=== PATIENT | female | born 1935 | race Caucasian/White ===

== ENCOUNTER → 2016-07-01 | Outpatient (REF) | payer OTHER, MEDICAID ==
[~2016-07-01] MED LIST: /HCTZ25TA PO; /PRAV20TA PO; /RANI15TA PO; ACET50TA PO; ACTIGALL PO; ASPI81TA85 PO; CALCTAB68 PO; CETI10TA OR; DIAZIDE PO; DYAZCA OR; FISH1000 OR; LIDO1DIS2 TOP; MAAL600C PO; MICR10CA OR; MULTTAB4 PO; NAPR500T PO; NEUR600T OR; NORCOBULK OR; PROAAER INH; PROC60TA PO; SING5CHW PO; TUMS1000 PO; ULTR50TA PO; VITA500047 PO; VITACRE OR
[2016-07-01 19:31] LABS: ALBUMIN 3.5 GM/DL (3.2-5.2); ALBUMIN/GLOBULIN RATIO 1.09 (1.00-1.93); ALKALINE PHOSPHATASE 137 U/L (45-117); ALT/SGPT 24 U/L (12-78); ANION GAP 10 MEQ/L (8-16); AST/SGOT 20 U/L (15-37); BILIRUBIN,TOTAL 0.4 MG/DL (0.2-1.0); BLOOD UREA NITROGEN 23 MG/DL (7-18); CALCIUM LEVEL 9.6 MG/DL (8.8-10.2); CARBON DIOXIDE LEVEL 29 MEQ/L (21-32); CHLORIDE LEVEL 102 MEQ/L (98-107); CREATININE FOR GFR 0.95 MG/DL (0.55-1.02); GLOMERULAR FILTRATION RATE > 60.0 (>32); GLUCOSE, FASTING 85 MG/DL (83-110); POTASSIUM SERUM 3.8 MEQ/L (3.5-5.1); SODIUM LEVEL 141 MEQ/L (136-145); TOTAL PROTEIN 6.7 GM/DL (6.4-8.2)
== END ==
LOC: M SFHCCLAY 12:03
PROVIDERS: ATTEND Family Medicine
DX: M10.9 Gout, unspecified (principal); E11.9 Type 2 diabetes mellitus without complications
CPT/HCPCS: 80053; 83036; G0463

== ENCOUNTER → 2016-08-13 | Outpatient (REF) | payer OTHER, MEDICAID | LOC: M SFHCCLAY 11:10 | PROVIDERS: ATTEND Family Medicine | DX: A09 Infectious gastroenteritis and colitis, unspecified (principal) ==

== ENCOUNTER → 2016-12-23 | Outpatient (REF) | payer OTHER, MEDICAID ==
[~2016-12-23] MED LIST changes: +DICL1GEL3; +FURO40TA2; +GLIM1TAB; +LOSA50TA20; +NAPR500T3; +PRAV40TA2
[2016-12-23 16:46] LABS: ANION GAP 5 MEQ/L (8-16); BLOOD UREA NITROGEN 16 MG/DL (7-18); CARBON DIOXIDE LEVEL 31 MEQ/L (21-32); CHLORIDE LEVEL 102 MEQ/L (98-107); CREATININE FOR GFR 0.91 MG/DL (0.55-1.02); GLOMERULAR FILTRATION RATE > 60.0 (>32); GLUCOSE, FASTING 107 MG/DL (83-110); POTASSIUM SERUM 3.7 MEQ/L (3.5-5.1); SODIUM LEVEL 138 MEQ/L (136-145)
[2016-12-23 17:40] LABS: MEAN CORPUSCULAR HEMOGLOBIN 30.5 pg (27.0-33.0); MEAN CORPUSCULAR HGB CONC 33.7 g/dl (32.0-36.5); MEAN CORPUSCULAR VOLUME 90.5 fl (80.0-96.0); RED CELL DISTRIBUTION WIDTH 12.4 % (11.5-14.5); WHITE BLOOD COUNT 7.3 K/mm3 (4.0-10.0)
== END ==
LOC: M SFHCCLAY 16:21
PROVIDERS: ATTEND Family Medicine
DX: E11.40 Type 2 diabetes mellitus with diabetic neuropathy, unspecified (principal); M15.9 Polyosteoarthritis, unspecified
CPT/HCPCS: 36415; 80048; 83036; 85027; G0463

== ENCOUNTER → 2017-01-11 | Outpatient (REF) | payer OTHER, MEDICAID | LOC: M SFHCCLAY 01-08 16:13 | PROVIDERS: ATTEND Family Medicine | DX: A09 Infectious gastroenteritis and colitis, unspecified (principal) ==

== ENCOUNTER 2017-02-10 10:36 | Emergency (ER) | payer OTHER, MEDICAID ==
[~2017-02-10] VITALS: Ht 154.9 cm; Wt 91.8 kg
[~2017-02-10 10:36] MED LIST changes: -DICL1GEL3; -FURO40TA2; -GLIM1TAB; -LOSA50TA20; -NAPR500T3; -PRAV40TA2
[2017-02-10] MEDS ORDERED: GLIM1TAB (10:56)
[2017-02-10] MEDS ORDERED: FURO40TA2 (11:05)
[2017-02-10] MEDS ORDERED: PRAV40TA2 (11:05)
[2017-02-10] MEDS ORDERED: NAPR500T3 (11:05)
[2017-02-10] MEDS ORDERED: LOSA50TA20 (11:05)
[2017-02-10] MEDS ORDERED: DICL1GEL3 (11:05)
[2017-02-10 11:35] LABS: BASO % 0.5 % (0.0-1.0); EOS # 0.1 K/mm3 (0.0-0.50); EOS % 1.9 % (0.0-3.0); LARGE UNSTAINED CELL # 0.2 K/mm3 (0.0-0.4); LYMPH % 13.8 % (24.0-44.0); MEAN CORPUSCULAR HEMOGLOBIN 31.3 pg (27.0-33.0); MEAN CORPUSCULAR HGB CONC 34.7 g/dl (32.0-36.5); MEAN CORPUSCULAR VOLUME 90.4 fl (80.0-96.0); MONO # 0.5 K/mm3 (0.0-0.8); MONO % 6.3 % (0.0-5.0); NEUTROPHILS # 5.6 K/mm3 (1.8-7.7); NEUTROPHILS % 75.5 % (36.0-66.0); PLATELET COUNT, AUTOMATED 258 k/mm3 (150-450); RED CELL DISTRIBUTION WIDTH 13.2 % (11.5-14.5); WHITE BLOOD COUNT 7.4 K/mm3 (4.0-10.0)
[2017-02-10 11:54] LABS: ALBUMIN 3.3 GM/DL (3.2-5.2); ALBUMIN/GLOBULIN RATIO 0.97 (1.00-1.93); ALKALINE PHOSPHATASE 87 U/L (45-117); ALT/SGPT 25 U/L (12-78); ANION GAP 8 MEQ/L (8-16); AST/SGOT 19 U/L (15-37); BILIRUBIN,DIRECT 0.1 MG/DL (0.0-0.2); BILIRUBIN,TOTAL 0.5 MG/DL (0.2-1.0); BLOOD UREA NITROGEN 20 MG/DL (7-18); CALCIUM LEVEL 9.7 MG/DL (8.8-10.2); CARBON DIOXIDE LEVEL 30 MEQ/L (21-32); CHLORIDE LEVEL 105 MEQ/L (98-107); CREATININE FOR GFR 0.97 MG/DL (0.55-1.02); GLOMERULAR FILTRATION RATE 58.5 (>32); GLUCOSE, FASTING 151 MG/DL (83-110); POTASSIUM SERUM 3.8 MEQ/L (3.5-5.1); SODIUM LEVEL 143 MEQ/L (136-145); TOTAL PROTEIN 6.7 GM/DL (6.4-8.2)
--- NOTE | 2017-02-10 12:08 | REP ---
CT Head without contrast HISTORY: Altered mental status COMPARISON: 11/05/2012 Areas of decreased attenuation are present in the basal ganglia. These represent old lacunar infarctions. Areas of decreased attenuation are present in the periventricular and subcortical white matter. This represents small-vessel ischemic disease. There is no intraparenchymal hemorrhage, acute infarct, mass or midline shift. The ventricular system and cortical sulci are dilated consistent with minimal volume loss. There is no extra cerebral collection. There is no fracture. The visualized sinuses are clear. IMPRESSION: 1. Old bilateral basal ganglia lacunar infarctions. 2. Small vessel ischemic disease. 3. Minimal volume loss. Signed by Juan Bishop MD 02/10/2017 12:00 P
[2017-02-10] MEDS ORDERED: ISOVUE-370 76% 100ML VIAL (Q9967) As Ordered ONE (13:05)
--- NOTE | 2017-02-10 13:29 | REP ---
Clinical: Pain and edema . Technique: Linda scale and color Doppler evaluation using linear high frequency transducer. Findings: Ultrasound examination of the right and left lower extremity deep venous structures from the common femoral vein to the popliteal vein demonstrates normal compressibility flow and wave patterns in response to respiration and augmentation. There is no evidence for deep venous thrombosis. Impression: No evidence for deep venous thrombosis. Signed by Davin Gentile MD 02/10/2017 01:22 P
--- NOTE | 2017-02-10 13:53 | REP ---
Clinical: Acute chest pain. Technique: Axial contrast enhanced images from the thoracic inlet to the upper abdomen using 100 ml Isovue 370 intravenous contrast material with coronal and sagittal re-formations. Findings: Satisfactory enhancement of the pulmonary vasculature is achieved and no filling defects are identified to suggest pulmonary embolus. Thoracic aorta is normal caliber without aneurysm or dissection, and demonstrates aberrant right subclavian artery. Atherosclerotic changes of the thoracic aorta and coronary arteries noted. No cardiomegaly or pericardial effusion identified. Bilateral lung hagan demonstrates scattered age-related interstitial changes without acute pulmonary parenchymal consolidation. Trace left basilar atelectasis cannot be excluded. No obvious nodule or mass lesion. No pleural effusion/reaction. No pneumothorax. No adenopathy. Moderate hiatal hernia identified. Impression: No evidence for pulmonary embolus. Chronic changes with possible trace left basilar atelectasis. Aberrant right subclavian artery noted. Moderate hiatal hernia. Signed by Davin Gentile MD 02/10/2017 01:45 P
[2017-02-10 17:57] VITALS: BP 137/89
--- NOTE | 2017-02-10 21:21 | ECGEPIP ---
Stationary ECG Study [facility] - ED Test Date: 2017-02-10 Pat Name: MIYA BLANTON Department: Room: - Gender: F [employer]: JT : 1935 Requested By: Julia Shah Order Number: [id number] Reading MD: Julia Shah Measurements Intervals [place] Rate: 78 P: 6 WI: 172 QRS: -36 QRSD: 91 T: 10 QT: 371 QTc: 424 Interpretive Statements SINUS RHYTHM MARKED LEFT AXIS DEVIATION POSSIBLE ANTERIOR MYOCARDIAL INFARCTION, OF INDETERMINATE AGE Electronically Signed On 02-10-2017 21:20:55 EDT by Julia Shah
--- NOTE | 2017-02-10 21:27 | ECGEPIP ---
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
== END 2017-02-10 17:58 | disposition home or self-care (01) ==
LOC: M ED 10:36 → EDBD 10:36 → M ED 17:58
DX: R07.9 Chest pain, unspecified (principal); R06.02 Shortness of breath; R42 Dizziness and giddiness; R60.0 Localized edema; I10 Essential (primary) hypertension; E78.9 Disorder of lipoprotein metabolism, unspecified; M19.90 Unspecified osteoarthritis, unspecified site; J30.2 Other seasonal allergic rhinitis; Z87.891 Personal history of nicotine dependence; Z88.0 Allergy status to penicillin; Z88.1 Allergy status to other antibiotic agents; Z88.8 Allergy status to other drugs, medicaments and biological substances; Z79.899 Other long term (current) drug therapy; Z79.82 Long term (current) use of aspirin
CPT/HCPCS: 70450; 71275; 80048; 80076; 82550; 82553; 83880; 84443; 84484; 85025; 93005; 93041; 93970; 94760; 99285; Q9967

== ENCOUNTER → 2017-07-08 | Outpatient (REF) | payer OTHER ==
[2017-07-08 18:26] LABS: ANION GAP 7 MEQ/L (8-16); BLOOD UREA NITROGEN 22 MG/DL (7-18); CALCIUM LEVEL 9.8 MG/DL (8.8-10.2); CARBON DIOXIDE LEVEL 29 MEQ/L (21-32); CHLORIDE LEVEL 102 MEQ/L (98-107); CREATININE FOR GFR 1.16 MG/DL (0.55-1.30); GLOMERULAR FILTRATION RATE 47.6 (>32); GLUCOSE, FASTING 176 MG/DL (70-100); POTASSIUM SERUM 4.4 MEQ/L (3.5-5.1); SODIUM LEVEL 138 MEQ/L (136-145)
[2017-07-08 18:31] LABS: ESTIMATED AVERAGE GLUCOSE 134 MG/DL (60-110); HEMOGLOBIN A1c 6.3 %
== END ==
LOC: M SFHCCLAY 16:41
DX: E11.40 Type 2 diabetes mellitus with diabetic neuropathy, unspecified (principal)
CPT/HCPCS: 83036

== ENCOUNTER 2017-09-26 11:54 | Emergency (ER) | payer OTHER, MEDICAID ==
[2017-09-26] MEDS: NORCO, ANEXSIA 5/325MG TABLET (HYDROcodone/ACETAMINOPHEN) PO (13:29)
[2017-09-26 13:43] LABS: BEDSIDE GLUCOSE 128 MG/DL (83-110)
[2017-09-26] MEDS: NORCO 5/325MG TABLET (BULK FOR ED) PO (15:15)
== END 2017-09-26 15:33 | disposition home or self-care (01) ==
LOC: M ED 11:54
DX: S82.024A Nondisplaced longitudinal fracture of right patella, initial encounter for closed fracture (principal); W01.0XXA Fall on same level from slipping, tripping and stumbling without subsequent striking against object, initial encounter; Y92.89 Other specified places as the place of occurrence of the external cause; E11.9 Type 2 diabetes mellitus without complications; I10 Essential (primary) hypertension; E78.00 Pure hypercholesterolemia, unspecified; Z79.899 Other long term (current) drug therapy; Z79.82 Long term (current) use of aspirin; Z88.8 Allergy status to other drugs, medicaments and biological substances; Z88.0 Allergy status to penicillin; Z88.1 Allergy status to other antibiotic agents; Z87.828 Personal history of other (healed) physical injury and trauma
CPT/HCPCS: 73564

== ENCOUNTER → 2017-10-23 | Outpatient (REF) | payer OTHER, MEDICAID | LOC: M SFHCCLAY 14:54 | DX: E11.9 Type 2 diabetes mellitus without complications (principal); J45.30 Mild persistent asthma, uncomplicated; Z53.8 Procedure and treatment not carried out for other reasons ==

== ENCOUNTER → 2018-02-12 | Outpatient (CLI) | payer OTHER, MEDICAID, MEDICARE | LOC: M CLY 11:41 | DX: R06.00 Dyspnea, unspecified (principal) | CPT/HCPCS: 71046 ==

== ENCOUNTER → 2018-02-15 | Outpatient (CLI) | payer MEDICARE, MEDICAID | LOC: M WHC 11:04 | DX: N95.1 Menopausal and female climacteric states (principal); Z78.0 Asymptomatic menopausal state | CPT/HCPCS: 77080 ==

== ENCOUNTER → 2018-02-22 | Outpatient (REF) | payer MEDICARE, MEDICAID | LOC: M SFHCCLAY 11:10 | DX: R19.7 Diarrhea, unspecified (principal) ==

== ENCOUNTER 2018-02-23 08:06 | Inpatient (IN) | payer MEDICARE, MEDICAID ==
[2018-02-23 09:08] LABS: HEMATOCRIT 37.6 % (36.0-47.0); HEMOGLOBIN 12.9 g/dl (12.0-15.5); MEAN CORPUSCULAR HEMOGLOBIN 30.4 pg (27.0-33.0); MEAN CORPUSCULAR HGB CONC 34.3 g/dl (32.0-36.5); MEAN CORPUSCULAR VOLUME 88.5 fl (80.0-96.0); PLATELET COUNT, AUTOMATED 319 10^3/uL (150-450); RED BLOOD COUNT 4.25 10^6/uL (4.00-5.40); RED CELL DISTRIBUTION WIDTH 12.2 % (11.5-14.5); WHITE BLOOD COUNT 12.6 10^3/uL (4.0-10.0)
[2018-02-23 09:12] LABS: ADD MANUAL DIFFER YES; DIFF SLIDE NUMBER 161; POSITIVE MORPH POS FLAG
[2018-02-23 09:33] LABS: ANION GAP 10 MEQ/L (8-16); BLOOD UREA NITROGEN 17 MG/DL (7-18); CALCIUM LEVEL 9.3 MG/DL (8.8-10.2); CARBON DIOXIDE LEVEL 22 MEQ/L (21-32); CHLORIDE LEVEL 102 MEQ/L (98-107); CPK CREATINE PHOSPHOKINASE 654 U/L (26-192); CREATININE FOR GFR 1.08 MG/DL (0.55-1.30); GLOMERULAR FILTRATION RATE 51.6 (>32); GLUCOSE, FASTING 152 MG/DL (70-100); SODIUM LEVEL 134 MEQ/L (136-145)
[2018-02-23 09:48] LABS: ATYPICAL LYMPH 1 % (0-5); BANDS 4 % (< 11); BASOPHILS 1 % (0-4); LYMPHOCYTES 11 % (16-52); MONOCYTES 11 % (0-8); NEUTROPHILS 72 % (35-75); PLATELET ESTIMATE NORMAL (NORMAL)
[2018-02-23] MEDS ORDERED: glipiZIDE *2.5MG* 1/2 TABLET PO (10:00)
[2018-02-23] MEDS: ASPIRIN 325 MG TAB PO (10:00)
[2018-02-23] MEDS: NS 500 ML IV (10:00)
[2018-02-23] MEDS ORDERED: ASPIRIN 81 MG CHEW TABLET As Ordered (10:01)
[2018-02-23] MEDS: FUROSEMIDE 40 MG TAB PO (10:04)
[2018-02-23] MEDS: glipiZIDE (GLUCOTROL) 5 MG TAB PO (10:12)
[2018-02-23] MEDS: NS 1,000 ML IV ×2 (10:45→22:12)
[2018-02-23] MEDS: ADVAIR INH (12:24)
[2018-02-23 12:31] LABS: BEDSIDE GLUCOSE 130 MG/DL (83-110)
[2018-02-23 17:02] LABS: ANION GAP 4 MEQ/L (8-16); BLOOD UREA NITROGEN 18 MG/DL (7-18); CALCIUM LEVEL 8.8 MG/DL (8.8-10.2); CARBON DIOXIDE LEVEL 25 MEQ/L (21-32); CHLORIDE LEVEL 101 MEQ/L (98-107); CREATININE FOR GFR 1.08 MG/DL (0.55-1.30); GLOMERULAR FILTRATION RATE 51.6 (>32); GLUCOSE, FASTING 127 MG/DL (70-100); POTASSIUM SERUM 4.2 MEQ/L (3.5-5.1); SODIUM LEVEL 130 MEQ/L (136-145)
[2018-02-23 17:03] LABS: CPK CREATINE PHOSPHOKINASE 851 U/L (26-192)
[2018-02-23] MEDS ORDERED: BENZONATATE 100 MG CAP PO (19:45)
[2018-02-23] MEDS ORDERED: ONDANSETRON 4MG/2ML VIAL (J2405) IV (19:45)
[2018-02-23] MEDS: PRAVASTATIN 20 MG TAB PO (22:11)
[2018-02-23] MEDS: LORATADINE 10 MG TAB PO (22:12)
[2018-02-23] MEDS: MONTELUKAST 10 MG TAB PO (22:12)
[2018-02-23] MEDS: raNITIdine SYRUP 150 MG/10 ML UDC PO (22:12)
[2018-02-23] MEDS: ADVAIR HFA 45/21MCG INHALER INH (22:15)
[2018-02-23] MEDS: ALPRAZolam 0.5 MG TAB PO (22:19)
[2018-02-24 06:30] LABS: MEAN CORPUSCULAR HEMOGLOBIN 30.2 pg (27.0-33.0); MEAN CORPUSCULAR HGB CONC 34.2 g/dl (32.0-36.5); MEAN CORPUSCULAR VOLUME 88.2 fl (80.0-96.0); PLATELET COUNT, AUTOMATED 257 10^3/uL (150-450); RED BLOOD COUNT 4.31 10^6/uL (4.00-5.40); RED CELL DISTRIBUTION WIDTH 12.3 % (11.5-14.5); WHITE BLOOD COUNT 5.5 10^3/uL (4.0-10.0)
[2018-02-24 06:32] LABS: ADD MANUAL DIFFER YES; DIFF SLIDE NUMBER 87; POSITIVE MORPH POS FLAG
[2018-02-24 07:06] LABS: ANION GAP 11 MEQ/L (8-16); BLOOD UREA NITROGEN 17 MG/DL (7-18); CALCIUM LEVEL 8.7 MG/DL (8.8-10.2); CARBON DIOXIDE LEVEL 21 MEQ/L (21-32); CHLORIDE LEVEL 106 MEQ/L (98-107); CPK CREATINE PHOSPHOKINASE 520 U/L (26-192); CREATININE FOR GFR 0.83 MG/DL (0.55-1.30); GLOMERULAR FILTRATION RATE > 60.0 (>32); GLUCOSE, FASTING 106 MG/DL (70-100); MAGNESIUM LEVEL 1.9 MG/DL (1.8-2.4); POTASSIUM SERUM 3.9 MEQ/L (3.5-5.1); SODIUM LEVEL 138 MEQ/L (136-145)
[2018-02-24 08:15] LABS: EOSINOPHILS 3 % (0-5); LYMPHOCYTES 41 % (16-52); MONOCYTES 1 % (0-8); NEUTROPHILS 55 % (35-75); PLATELET ESTIMATE NORMAL (NORMAL)
[2018-02-24] MEDS: ADVAIR HFA 45/21MCG INHALER INH ×2 (08:47→21:12)
[2018-02-24] MEDS: MULTIVITAMINS/MINERALS THERAP 1 TAB PO (10:53)
[2018-02-24] MEDS: ASPIRIN 81 MG ENTERIC TAB PO (10:53)
[2018-02-24] MEDS: ALPRAZolam 0.5 MG TAB PO ×2 (10:53→20:54)
[2018-02-24] MEDS: ENOXAPARIN 40 MG/0.4 ML SYRINGE (J1650) SC (10:54)
[2018-02-24] MEDS: raNITIdine SYRUP 150 MG/10 ML UDC PO ×2 (10:54→21:08)
[2018-02-24] MEDS: INFLUENZA VIRUS VACCINE HIGH DOSE 0.5 ML SYRINGE (90662) IM (10:55)
[2018-02-24] MEDS ORDERED: glipiZIDE (GLUCOTROL) 5 MG TAB PO (14:15)
[2018-02-24 16:43] LABS: BEDSIDE GLUCOSE 141 MG/DL (83-110)
[2018-02-24] MEDS: ACETAMINOPHEN TAB 650MG DOSE (2X325MG) PO (18:25)
[2018-02-24] MEDS: GABAPENTIN 300 MG CAP PO (20:54)
[2018-02-24] MEDS: LORATADINE 10 MG TAB PO (20:54)
[2018-02-24] MEDS: MONTELUKAST 10 MG TAB PO (20:54)
[2018-02-24] MEDS: PRAVASTATIN 20 MG TAB PO (20:54)
[2018-02-24] MEDS: CHOLESTYRAMINE 4 GM PWD PKT PO (20:55)
[2018-02-24] MEDS ORDERED: FUROSEMIDE 40 MG TAB PO (21:00)
[2018-02-25 05:07] LABS: BEDSIDE GLUCOSE 106 MG/DL (83-110)
[2018-02-25 05:55] LABS: HEMATOCRIT 44.4 % (36.0-47.0); HEMOGLOBIN 14.8 g/dl (12.0-15.5); MEAN CORPUSCULAR HEMOGLOBIN 29.9 pg (27.0-33.0); MEAN CORPUSCULAR HGB CONC 33.3 g/dl (32.0-36.5); MEAN CORPUSCULAR VOLUME 89.7 fl (80.0-96.0); RED BLOOD COUNT 4.95 10^6/uL (4.00-5.40); RED CELL DISTRIBUTION WIDTH 12.3 % (11.5-14.5); WHITE BLOOD COUNT 7.4 10^3/uL (4.0-10.0)
[2018-02-25 06:13] LABS: POS COUNT POS FLAG; POSITIVE MORPH POS FLAG
[2018-02-25 06:14] LABS: ADD MANUAL DIFFER YES; DIFF SLIDE NUMBER 58
[2018-02-25 06:18] LABS: ATYPICAL LYMPH 4 % (0-5); BANDS 4 % (< 11); EOSINOPHILS 2 % (0-5); LYMPHOCYTES 26 % (16-52); MONOCYTES 4 % (0-8); NEUTROPHILS 60 % (35-75)
[2018-02-25 06:19] LABS: PLATELET CLUMPS SMALL AMT; PLATELET ESTIMATE NORMAL (NORMAL)
[2018-02-25 06:22] LABS: ANION GAP 12 MEQ/L (8-16); BLOOD UREA NITROGEN 16 MG/DL (7-18); CALCIUM LEVEL 9.5 MG/DL (8.8-10.2); CARBON DIOXIDE LEVEL 18 MEQ/L (21-32); CHLORIDE LEVEL 105 MEQ/L (98-107); CPK CREATINE PHOSPHOKINASE 515 U/L (26-192); CREATININE FOR GFR 0.93 MG/DL (0.55-1.30); GLOMERULAR FILTRATION RATE > 60.0 (>32); GLUCOSE, FASTING 106 MG/DL (70-100); MAGNESIUM LEVEL 2.1 MG/DL (1.8-2.4); POTASSIUM SERUM 4.6 MEQ/L (3.5-5.1); SODIUM LEVEL 135 MEQ/L (136-145)
[2018-02-25 07:40] LABS: BEDSIDE GLUCOSE 162 MG/DL (83-110)
[2018-02-25] MEDS: ADVAIR HFA 45/21MCG INHALER INH ×2 (07:45→20:59)
[2018-02-25] MEDS ORDERED: LOSARTAN 50 MG TAB PO (09:00)
[2018-02-25] MEDS: MULTIVITAMINS/MINERALS THERAP 1 TAB PO (09:49)
[2018-02-25] MEDS: ASPIRIN 81 MG ENTERIC TAB PO (09:49)
[2018-02-25] MEDS: GABAPENTIN 300 MG CAP PO (09:49)
[2018-02-25] MEDS: CHOLESTYRAMINE 4 GM PWD PKT PO ×2 (09:49→20:47)
[2018-02-25] MEDS: ENOXAPARIN 40 MG/0.4 ML SYRINGE (J1650) SC (09:50)
[2018-02-25] MEDS: raNITIdine SYRUP 150 MG/10 ML UDC PO ×2 (09:50→20:47)
[2018-02-25 16:59] LABS: BEDSIDE GLUCOSE 109 MG/DL (83-110)
[2018-02-25] MEDS: GOLYTELY SOLN 4000 ML BTL PO (19:36)
[2018-02-25] MEDS: PRAVASTATIN 20 MG TAB PO (20:47)
[2018-02-25] MEDS: MONTELUKAST 10 MG TAB PO (20:47)
[2018-02-25] MEDS: ALPRAZolam 0.5 MG TAB PO (20:47)
[2018-02-25] MEDS: LORATADINE 10 MG TAB PO (20:47)
[2018-02-26] MEDS: GOLYTELY SOLN 4000 ML BTL PO (06:13)
[2018-02-26 06:25] LABS: BASO % 0.8 % (0.0-1.0); EOS # 0.1 10^3/uL (0.0-0.50); EOS % 2.7 % (0.0-3.0); HEMATOCRIT 33.7 % (36.0-47.0); HEMOGLOBIN 11.2 g/dl (12.0-15.5); IMMATURE GRANULOCYTE % 0.6 % (0-3.0); LYMPH # 1.6 10^3/uL (1.5-4.5); LYMPH % 30.6 % (24.0-44.0); MEAN CORPUSCULAR HEMOGLOBIN 29.2 pg (27.0-33.0); MEAN CORPUSCULAR HGB CONC 33.2 g/dl (32.0-36.5); MONO # 0.7 10^3/uL (0.0-0.8); MONO % 13.3 % (0.0-5.0); NEUTROPHILS # 2.7 10^3/uL (1.8-7.7); PLATELET COUNT, AUTOMATED 280 10^3/uL (150-450); RED BLOOD COUNT 3.83 10^6/uL (4.00-5.40); RED CELL DISTRIBUTION WIDTH 12.2 % (11.5-14.5); WHITE BLOOD COUNT 5.2 10^3/uL (4.0-10.0)
[2018-02-26 06:53] LABS: ANION GAP 10 MEQ/L (8-16); BLOOD UREA NITROGEN 14 MG/DL (7-18); CALCIUM LEVEL 8.7 MG/DL (8.8-10.2); CARBON DIOXIDE LEVEL 21 MEQ/L (21-32); CHLORIDE LEVEL 106 MEQ/L (98-107); CPK CREATINE PHOSPHOKINASE 412 U/L (26-192); CREATININE FOR GFR 0.75 MG/DL (0.55-1.30); GLOMERULAR FILTRATION RATE > 60.0 (>32); GLUCOSE, FASTING 128 MG/DL (70-100); MAGNESIUM LEVEL 1.9 MG/DL (1.8-2.4); POTASSIUM SERUM 3.6 MEQ/L (3.5-5.1); SODIUM LEVEL 137 MEQ/L (136-145)
[2018-02-26] MEDS: ADVAIR HFA 45/21MCG INHALER INH ×2 (07:35→19:47)
[2018-02-26] MEDS: ENOXAPARIN 40 MG/0.4 ML SYRINGE (J1650) SC (08:33)
[2018-02-26] MEDS: CHOLESTYRAMINE 4 GM PWD PKT PO ×2 (08:33→20:16)
[2018-02-26] MEDS: ASPIRIN 81 MG ENTERIC TAB PO (09:00)
[2018-02-26] MEDS: raNITIdine SYRUP 150 MG/10 ML UDC PO ×2 (09:00→20:16)
[2018-02-26] MEDS: MULTIVITAMINS/MINERALS THERAP 1 TAB PO (09:00)
[2018-02-26 11:31] LABS: BEDSIDE GLUCOSE 143 MG/DL (83-110)
[2018-02-26] MEDS ORDERED: PREPARATION H OINTMENT (HEMORRHOID) PR (13:15)
[2018-02-26] MEDS ORDERED: PROPOFOL 200 MG/20 ML VIAL As Ordered (15:33)
[2018-02-26] MEDS ORDERED: LIDOCAINE 2% INJ 100 MG/5 ML SDV (FOR ANES.) As Ordered (15:56)
[2018-02-26] MEDS: FUROSEMIDE 40 MG TAB PO (17:06)
[2018-02-26] MEDS: LOPERAMIDE 2 MG CAP PO (17:06)
[2018-02-26 17:28] LABS: BEDSIDE GLUCOSE 111 MG/DL (83-110)
[2018-02-26] MEDS: LORATADINE 10 MG TAB PO (20:16)
[2018-02-26] MEDS: PRAVASTATIN 20 MG TAB PO (20:16)
[2018-02-26] MEDS: ALPRAZolam 0.5 MG TAB PO (20:16)
[2018-02-26] MEDS: MESALAMINE 400 MG CAPSULE DELAYED RELEASE (DELZICOL) PO (20:16)
[2018-02-26] MEDS: MONTELUKAST 10 MG TAB PO (20:16)
[2018-02-27 06:24] LABS: BASO # 0.1 10^3/uL (0.0-0.2); BASO % 0.8 % (0.0-1.0); EOS # 0.3 10^3/uL (0.0-0.50); EOS % 4.1 % (0.0-3.0); HEMATOCRIT 35.5 % (36.0-47.0); HEMOGLOBIN 11.9 g/dl (12.0-15.5); IMMATURE GRANULOCYTE % 1.1 % (0-3.0); LYMPH # 1.8 10^3/uL (1.5-4.5); LYMPH % 27.5 % (24.0-44.0); MEAN CORPUSCULAR HEMOGLOBIN 30.1 pg (27.0-33.0); MEAN CORPUSCULAR HGB CONC 33.5 g/dl (32.0-36.5); MEAN CORPUSCULAR VOLUME 89.6 fl (80.0-96.0); MONO # 0.7 10^3/uL (0.0-0.8); MONO % 10.4 % (0.0-5.0); NEUTROPHILS # 3.7 10^3/uL (1.8-7.7); NEUTROPHILS % 56.1 % (36.0-66.0); PLATELET COUNT, AUTOMATED 287 10^3/uL (150-450); RED BLOOD COUNT 3.96 10^6/uL (4.00-5.40); RED CELL DISTRIBUTION WIDTH 12.3 % (11.5-14.5); WHITE BLOOD COUNT 6.6 10^3/uL (4.0-10.0)
[2018-02-27 06:41] LABS: ANION GAP 8 MEQ/L (8-16); BLOOD UREA NITROGEN 12 MG/DL (7-18); CALCIUM LEVEL 8.5 MG/DL (8.8-10.2); CARBON DIOXIDE LEVEL 27 MEQ/L (21-32); CHLORIDE LEVEL 105 MEQ/L (98-107); CPK CREATINE PHOSPHOKINASE 308 U/L (26-192); GLOMERULAR FILTRATION RATE > 60.0 (>32); GLUCOSE, FASTING 99 MG/DL (70-100); MAGNESIUM LEVEL 1.7 MG/DL (1.8-2.4); POTASSIUM SERUM 3.6 MEQ/L (3.5-5.1); SODIUM LEVEL 140 MEQ/L (136-145)
[2018-02-27] MEDS: ADVAIR HFA 45/21MCG INHALER INH ×2 (07:22→20:05)
[2018-02-27] MEDS: MULTIVITAMINS/MINERALS THERAP 1 TAB PO (08:35)
[2018-02-27] MEDS: ENOXAPARIN 40 MG/0.4 ML SYRINGE (J1650) SC (08:36)
[2018-02-27] MEDS: CHOLESTYRAMINE 4 GM PWD PKT PO ×2 (08:36→21:56)
[2018-02-27] MEDS: FUROSEMIDE 40 MG TAB PO ×2 (08:36→16:03)
[2018-02-27] MEDS: ASPIRIN 81 MG ENTERIC TAB PO (08:36)
[2018-02-27] MEDS: MESALAMINE 400 MG CAPSULE DELAYED RELEASE (DELZICOL) PO ×3 (08:36→21:58)
[2018-02-27] MEDS: raNITIdine SYRUP 150 MG/10 ML UDC PO ×2 (08:36→21:56)
[2018-02-27] MEDS ORDERED: PILL CRUSHER/CUTTER 1 EACH XX (10:45)
[2018-02-27] MEDS: ACETAMINOPHEN TAB 650MG DOSE (2X325MG) PO (12:55)
[2018-02-27] MEDS: MAGNESIUM OXIDE 400 MG TAB (MAG-OX) PO ×2 (13:56→21:57)
[2018-02-27 16:54] LABS: BEDSIDE GLUCOSE 280 MG/DL (83-110)
[2018-02-27] MEDS: LORATADINE 10 MG TAB PO (21:57)
[2018-02-27] MEDS: PRAVASTATIN 20 MG TAB PO (21:57)
[2018-02-27] MEDS: ALPRAZolam 0.5 MG TAB PO (21:57)
[2018-02-27] MEDS: FUROSEMIDE 40 MG/4 ML VIAL (J1940) IV (21:57)
[2018-02-27] MEDS: MONTELUKAST 10 MG TAB PO (21:57)
[2018-02-28 05:55] LABS: BASO # 0.1 10^3/uL (0.0-0.2); BASO % 0.8 % (0.0-1.0); EOS # 0.2 10^3/uL (0.0-0.50); HEMATOCRIT 34.5 % (36.0-47.0); HEMOGLOBIN 11.5 g/dl (12.0-15.5); IMMATURE GRANULOCYTE % 1.7 % (0-3.0); LYMPH # 1.5 10^3/uL (1.5-4.5); LYMPH % 25.2 % (24.0-44.0); MEAN CORPUSCULAR HEMOGLOBIN 29.7 pg (27.0-33.0); MEAN CORPUSCULAR HGB CONC 33.3 g/dl (32.0-36.5); MEAN CORPUSCULAR VOLUME 89.1 fl (80.0-96.0); MONO # 0.6 10^3/uL (0.0-0.8); NEUTROPHILS # 3.5 10^3/uL (1.8-7.7); NEUTROPHILS % 58.3 % (36.0-66.0); PLATELET COUNT, AUTOMATED 292 10^3/uL (150-450); RED BLOOD COUNT 3.87 10^6/uL (4.00-5.40); RED CELL DISTRIBUTION WIDTH 12.3 % (11.5-14.5)
[2018-02-28 06:19] LABS: ANION GAP 8 MEQ/L (8-16); BLOOD UREA NITROGEN 14 MG/DL (7-18); CALCIUM LEVEL 8.4 MG/DL (8.8-10.2); CARBON DIOXIDE LEVEL 27 MEQ/L (21-32); CHLORIDE LEVEL 106 MEQ/L (98-107); CPK CREATINE PHOSPHOKINASE 116 U/L (26-192); CREATININE FOR GFR 0.96 MG/DL (0.55-1.30); GLOMERULAR FILTRATION RATE 59.1 (>32); GLUCOSE, FASTING 108 MG/DL (70-100); MAGNESIUM LEVEL 1.7 MG/DL (1.8-2.4); POTASSIUM SERUM 3.3 MEQ/L (3.5-5.1); SODIUM LEVEL 141 MEQ/L (136-145)
[2018-02-28 07:01] LABS: BEDSIDE GLUCOSE 102 MG/DL (83-110)
[2018-02-28] MEDS: ADVAIR HFA 45/21MCG INHALER INH ×2 (07:19→21:06)
[2018-02-28] MEDS: MULTIVITAMINS/MINERALS THERAP 1 TAB PO (08:27)
[2018-02-28] MEDS: ENOXAPARIN 40 MG/0.4 ML SYRINGE (J1650) SC (08:27)
[2018-02-28] MEDS: FUROSEMIDE 20 MG TAB PO ×2 (08:27→16:01)
[2018-02-28] MEDS: ASPIRIN 81 MG ENTERIC TAB PO (08:27)
[2018-02-28] MEDS: MAGNESIUM OXIDE 400 MG TAB (MAG-OX) PO ×2 (08:27→21:25)
[2018-02-28] MEDS: CHOLESTYRAMINE 4 GM PWD PKT PO ×2 (08:28→21:25)
[2018-02-28] MEDS: MESALAMINE 400 MG CAPSULE DELAYED RELEASE (DELZICOL) PO ×3 (09:12→21:25)
[2018-02-28] MEDS: raNITIdine SYRUP 150 MG/10 ML UDC PO ×2 (09:12→21:25)
[2018-02-28] MEDS: glipiZIDE (GLUCOTROL) 5 MG TAB PO ×2 (11:00→11:06)
[2018-02-28] MEDS: LOPERAMIDE 2 MG CAP PO ×2 (11:05→21:24)
[2018-02-28] MEDS: LOSARTAN 50 MG TAB PO (11:06)
[2018-02-28] MEDS: POTASSIUM CHLORIDE 10 MEQ SR TABLET PO (16:01)
[2018-02-28 17:23] LABS: BEDSIDE GLUCOSE 115 MG/DL (83-110)
[2018-02-28] MEDS: ALPRAZolam 0.5 MG TAB PO (21:24)
[2018-02-28] MEDS: LORATADINE 10 MG TAB PO (21:25)
[2018-02-28] MEDS: MONTELUKAST 10 MG TAB PO (21:25)
[2018-02-28] MEDS: PRAVASTATIN 20 MG TAB PO (21:25)
[2018-03-01 06:15] LABS: BASO % 0.8 % (0.0-1.0); EOS # 0.1 10^3/uL (0.0-0.50); EOS % 2.3 % (0.0-3.0); HEMOGLOBIN 11.2 g/dl (12.0-15.5); IMMATURE GRANULOCYTE % 1.7 % (0-3.0); LYMPH # 1.9 10^3/uL (1.5-4.5); LYMPH % 38.8 % (24.0-44.0); MEAN CORPUSCULAR HEMOGLOBIN 29.9 pg (27.0-33.0); MEAN CORPUSCULAR HGB CONC 32.9 g/dl (32.0-36.5); MEAN CORPUSCULAR VOLUME 90.9 fl (80.0-96.0); MONO # 0.6 10^3/uL (0.0-0.8); MONO % 12.9 % (0.0-5.0); NEUTROPHILS # 2.1 10^3/uL (1.8-7.7); NEUTROPHILS % 43.5 % (36.0-66.0); PLATELET COUNT, AUTOMATED 316 10^3/uL (150-450); RED BLOOD COUNT 3.74 10^6/uL (4.00-5.40); RED CELL DISTRIBUTION WIDTH 12.5 % (11.5-14.5); WHITE BLOOD COUNT 4.8 10^3/uL (4.0-10.0)
[2018-03-01] MEDS: LOPERAMIDE 2 MG CAP PO (06:24)
[2018-03-01 06:45] LABS: ANION GAP 8 MEQ/L (8-16); BLOOD UREA NITROGEN 14 MG/DL (7-18); CALCIUM LEVEL 8.2 MG/DL (8.8-10.2); CARBON DIOXIDE LEVEL 27 MEQ/L (21-32); CHLORIDE LEVEL 106 MEQ/L (98-107); CPK CREATINE PHOSPHOKINASE 64 U/L (26-192); CREATININE FOR GFR 0.81 MG/DL (0.55-1.30); GLOMERULAR FILTRATION RATE > 60.0 (>32); GLUCOSE, FASTING 103 MG/DL (70-100); POTASSIUM SERUM 3.8 MEQ/L (3.5-5.1); SODIUM LEVEL 141 MEQ/L (136-145)
[2018-03-01] MEDS: ADVAIR HFA 45/21MCG INHALER INH ×2 (07:30→21:25)
[2018-03-01] MEDS: CHOLESTYRAMINE 4 GM PWD PKT PO ×2 (08:33→20:22)
[2018-03-01] MEDS: ENOXAPARIN 40 MG/0.4 ML SYRINGE (J1650) SC (08:33)
[2018-03-01] MEDS: raNITIdine SYRUP 150 MG/10 ML UDC PO ×2 (08:33→20:23)
[2018-03-01] MEDS: ASPIRIN 81 MG ENTERIC TAB PO (08:34)
[2018-03-01] MEDS: glipiZIDE (GLUCOTROL) 5 MG TAB PO (08:34)
[2018-03-01] MEDS: MESALAMINE 400 MG CAPSULE DELAYED RELEASE (DELZICOL) PO ×3 (08:34→20:23)
[2018-03-01] MEDS: LOSARTAN 50 MG TAB PO (08:35)
[2018-03-01] MEDS: FUROSEMIDE 20 MG TAB PO ×2 (08:35→16:22)
[2018-03-01] MEDS: MULTIVITAMINS/MINERALS THERAP 1 TAB PO (08:35)
[2018-03-01] MEDS: MAGNESIUM OXIDE 400 MG TAB (MAG-OX) PO ×2 (08:35→20:23)
[2018-03-01] MEDS: ACETAMINOPHEN TAB 650MG DOSE (2X325MG) PO ×2 (10:25→20:24)
[2018-03-01 17:48] LABS: BEDSIDE GLUCOSE 121 MG/DL (83-110)
[2018-03-01] MEDS: ALPRAZolam 0.5 MG TAB PO (20:23)
[2018-03-01] MEDS: LORATADINE 10 MG TAB PO (20:23)
[2018-03-01] MEDS: PRAVASTATIN 20 MG TAB PO (20:23)
[2018-03-01] MEDS: MONTELUKAST 10 MG TAB PO (20:23)
[2018-03-02 05:58] LABS: BASO % 0.6 % (0.0-1.0); EOS # 0.2 10^3/uL (0.0-0.50); EOS % 2.7 % (0.0-3.0); HEMATOCRIT 36.1 % (36.0-47.0); HEMOGLOBIN 11.9 g/dl (12.0-15.5); IMMATURE GRANULOCYTE % 1.4 % (0-3.0); LYMPH # 1.5 10^3/uL (1.5-4.5); LYMPH % 23.3 % (24.0-44.0); MEAN CORPUSCULAR HEMOGLOBIN 29.6 pg (27.0-33.0); MEAN CORPUSCULAR VOLUME 89.8 fl (80.0-96.0); MONO # 0.7 10^3/uL (0.0-0.8); MONO % 10.3 % (0.0-5.0); NEUTROPHILS # 3.9 10^3/uL (1.8-7.7); NEUTROPHILS % 61.7 % (36.0-66.0); PLATELET COUNT, AUTOMATED 316 10^3/uL (150-450); RED BLOOD COUNT 4.02 10^6/uL (4.00-5.40); RED CELL DISTRIBUTION WIDTH 12.5 % (11.5-14.5); WHITE BLOOD COUNT 6.3 10^3/uL (4.0-10.0)
[2018-03-02 06:22] LABS: ANION GAP 8 MEQ/L (8-16); BLOOD UREA NITROGEN 15 MG/DL (7-18); CALCIUM LEVEL 8.3 MG/DL (8.8-10.2); CARBON DIOXIDE LEVEL 25 MEQ/L (21-32); CHLORIDE LEVEL 104 MEQ/L (98-107); CPK CREATINE PHOSPHOKINASE 56 U/L (26-192); CREATININE FOR GFR 0.83 MG/DL (0.55-1.30); GLOMERULAR FILTRATION RATE > 60.0 (>32); GLUCOSE, FASTING 108 MG/DL (70-100); MAGNESIUM LEVEL 1.9 MG/DL (1.8-2.4); POTASSIUM SERUM 3.6 MEQ/L (3.5-5.1); SODIUM LEVEL 137 MEQ/L (136-145)
[2018-03-02] MEDS: MESALAMINE 400 MG CAPSULE DELAYED RELEASE (DELZICOL) PO ×3 (07:57→21:20)
[2018-03-02] MEDS: CHOLESTYRAMINE 4 GM PWD PKT PO ×2 (07:58→21:20)
[2018-03-02] MEDS: raNITIdine SYRUP 150 MG/10 ML UDC PO ×2 (07:58→21:20)
[2018-03-02] MEDS: ENOXAPARIN 40 MG/0.4 ML SYRINGE (J1650) SC (07:58)
[2018-03-02] MEDS: MAGNESIUM OXIDE 400 MG TAB (MAG-OX) PO ×2 (07:58→21:21)
[2018-03-02] MEDS: ASPIRIN 81 MG ENTERIC TAB PO (07:58)
[2018-03-02] MEDS: glipiZIDE (GLUCOTROL) 5 MG TAB PO (07:59)
[2018-03-02] MEDS: MULTIVITAMINS/MINERALS THERAP 1 TAB PO (07:59)
[2018-03-02] MEDS: LOSARTAN 50 MG TAB PO (07:59)
[2018-03-02] MEDS: FUROSEMIDE 20 MG TAB PO ×2 (08:00→18:02)
[2018-03-02] MEDS: ADVAIR HFA 45/21MCG INHALER INH ×2 (08:41→21:08)
[2018-03-02] MEDS: LOPERAMIDE 2 MG CAP PO (10:35)
[2018-03-02 16:42] LABS: BEDSIDE GLUCOSE 136 MG/DL (83-110)
[2018-03-02] MEDS: FUROSEMIDE 40 MG/4 ML VIAL (J1940) IV (17:05)
[2018-03-02] MEDS: PRAVASTATIN 20 MG TAB PO (21:20)
[2018-03-02] MEDS: ALPRAZolam 0.5 MG TAB PO (21:20)
[2018-03-02] MEDS: LORATADINE 10 MG TAB PO (21:21)
[2018-03-02] MEDS: MONTELUKAST 10 MG TAB PO (21:21)
[2018-03-02] MEDS: ACETAMINOPHEN TAB 650MG DOSE (2X325MG) PO (21:22)
[2018-03-03] MEDS: LOPERAMIDE 2 MG CAP PO ×2 (05:18→21:52)
[2018-03-03 06:35] LABS: BEDSIDE GLUCOSE 95 MG/DL (83-110)
[2018-03-03] MEDS: ADVAIR HFA 45/21MCG INHALER INH ×2 (07:20→21:49)
[2018-03-03] MEDS: glipiZIDE (GLUCOTROL) 5 MG TAB PO (08:16)
[2018-03-03] MEDS: MESALAMINE 400 MG CAPSULE DELAYED RELEASE (DELZICOL) PO ×3 (08:16→20:19)
[2018-03-03] MEDS: ASPIRIN 81 MG ENTERIC TAB PO (08:17)
[2018-03-03] MEDS: raNITIdine SYRUP 150 MG/10 ML UDC PO ×2 (08:17→20:20)
[2018-03-03] MEDS: FUROSEMIDE 20 MG TAB PO ×2 (08:17→16:23)
[2018-03-03] MEDS: MAGNESIUM OXIDE 400 MG TAB (MAG-OX) PO ×2 (08:17→20:19)
[2018-03-03] MEDS: MULTIVITAMINS/MINERALS THERAP 1 TAB PO (08:17)
[2018-03-03] MEDS: LOSARTAN 50 MG TAB PO (08:17)
[2018-03-03] MEDS: CHOLESTYRAMINE 4 GM PWD PKT PO ×2 (08:18→20:20)
[2018-03-03] MEDS: ENOXAPARIN 40 MG/0.4 ML SYRINGE (J1650) SC (08:18)
[2018-03-03] MEDS: FUROSEMIDE 100 MG/10 ML VIAL (J1940) IV (14:36)
[2018-03-03] MEDS: POTASSIUM CHLORIDE 10 MEQ SR TABLET PO (14:37)
[2018-03-03] MEDS: SPIRONOLACTONE 25 MG TAB PO (14:37)
[2018-03-03 16:51] LABS: BEDSIDE GLUCOSE 125 MG/DL (83-110)
[2018-03-03] MEDS: ACETAMINOPHEN TAB 650MG DOSE (2X325MG) PO (18:14)
[2018-03-03] MEDS: PRAVASTATIN 20 MG TAB PO (20:19)
[2018-03-03] MEDS: LORATADINE 10 MG TAB PO (20:19)
[2018-03-03] MEDS: MONTELUKAST 10 MG TAB PO (20:19)
[2018-03-03] MEDS: ALPRAZolam 0.5 MG TAB PO (21:31)
[2018-03-04] MEDS: ACETAMINOPHEN TAB 650MG DOSE (2X325MG) PO ×3 (03:54→22:10)
[2018-03-04 06:22] LABS: ANION GAP 7 MEQ/L (8-16); BLOOD UREA NITROGEN 13 MG/DL (7-18); CARBON DIOXIDE LEVEL 26 MEQ/L (21-32); CHLORIDE LEVEL 104 MEQ/L (98-107); CREATININE FOR GFR 0.76 MG/DL (0.55-1.30); GLOMERULAR FILTRATION RATE > 60.0 (>32); GLUCOSE, FASTING 100 MG/DL (70-100); POTASSIUM SERUM 3.7 MEQ/L (3.5-5.1); SODIUM LEVEL 137 MEQ/L (136-145)
[2018-03-04] MEDS: ADVAIR HFA 45/21MCG INHALER INH ×2 (08:30→19:55)
[2018-03-04] MEDS: raNITIdine SYRUP 150 MG/10 ML UDC PO ×2 (08:53→20:09)
[2018-03-04] MEDS: ASPIRIN 81 MG ENTERIC TAB PO (08:53)
[2018-03-04] MEDS: FUROSEMIDE 20 MG TAB PO ×2 (08:54→16:56)
[2018-03-04] MEDS: CHOLESTYRAMINE 4 GM PWD PKT PO ×2 (08:54→20:09)
[2018-03-04] MEDS: glipiZIDE (GLUCOTROL) 5 MG TAB PO (08:54)
[2018-03-04] MEDS: MULTIVITAMINS/MINERALS THERAP 1 TAB PO (08:54)
[2018-03-04] MEDS: SPIRONOLACTONE 25 MG TAB PO (08:54)
[2018-03-04] MEDS: MESALAMINE 400 MG CAPSULE DELAYED RELEASE (DELZICOL) PO ×3 (08:55→20:10)
[2018-03-04] MEDS: ENOXAPARIN 40 MG/0.4 ML SYRINGE (J1650) SC (08:55)
[2018-03-04] MEDS: MAGNESIUM OXIDE 400 MG TAB (MAG-OX) PO ×2 (08:55→20:10)
[2018-03-04] MEDS: LOSARTAN 50 MG TAB PO (08:57)
[2018-03-04] MEDS: LOPERAMIDE 2 MG CAP PO (11:02)
[2018-03-04 17:46] LABS: BEDSIDE GLUCOSE 89 MG/DL (83-110)
[2018-03-04] MEDS: PRAVASTATIN 20 MG TAB PO (20:10)
[2018-03-04] MEDS: MONTELUKAST 10 MG TAB PO (20:10)
[2018-03-04] MEDS: LORATADINE 10 MG TAB PO (20:10)
[2018-03-04] MEDS: ALPRAZolam 0.5 MG TAB PO (22:10)
[2018-03-05 06:25] LABS: BEDSIDE GLUCOSE 93 MG/DL (83-110)
[2018-03-05] MEDS: ADVAIR HFA 45/21MCG INHALER INH ×2 (07:12→20:00)
[2018-03-05] MEDS: raNITIdine SYRUP 150 MG/10 ML UDC PO ×2 (08:16→20:25)
[2018-03-05] MEDS: CHOLESTYRAMINE 4 GM PWD PKT PO ×2 (08:16→20:25)
[2018-03-05] MEDS: SPIRONOLACTONE 25 MG TAB PO (08:16)
[2018-03-05] MEDS: ENOXAPARIN 40 MG/0.4 ML SYRINGE (J1650) SC (08:16)
[2018-03-05] MEDS: MESALAMINE 400 MG CAPSULE DELAYED RELEASE (DELZICOL) PO ×3 (08:17→20:25)
[2018-03-05] MEDS: MULTIVITAMINS/MINERALS THERAP 1 TAB PO (08:17)
[2018-03-05] MEDS: ASPIRIN 81 MG ENTERIC TAB PO (08:17)
[2018-03-05] MEDS: MAGNESIUM OXIDE 400 MG TAB (MAG-OX) PO ×2 (08:17→20:24)
[2018-03-05] MEDS: FUROSEMIDE 20 MG TAB PO ×2 (08:17→16:42)
[2018-03-05] MEDS: LOSARTAN 50 MG TAB PO (08:17)
[2018-03-05] MEDS: glipiZIDE (GLUCOTROL) 5 MG TAB PO (08:18)
[2018-03-05] MEDS: LOPERAMIDE 2 MG CAP PO ×2 (09:36→20:24)
[2018-03-05 12:02] LABS: BEDSIDE GLUCOSE 75 MG/DL (83-110)
[2018-03-05 16:25] LABS: BEDSIDE GLUCOSE 128 MG/DL (83-110)
[2018-03-05] MEDS: ACETAMINOPHEN TAB 650MG DOSE (2X325MG) PO (18:48)
[2018-03-05] MEDS: PRAVASTATIN 20 MG TAB PO (20:24)
[2018-03-05] MEDS: LORATADINE 10 MG TAB PO (20:24)
[2018-03-05] MEDS: ALPRAZolam 0.5 MG TAB PO (20:24)
[2018-03-05] MEDS: MONTELUKAST 10 MG TAB PO (20:24)
[2018-03-06] MEDS: ACETAMINOPHEN TAB 650MG DOSE (2X325MG) PO ×2 (02:07→20:20)
[2018-03-06] MEDS: LOPERAMIDE 2 MG CAP PO ×4 (02:07→20:21)
[2018-03-06 06:22] LABS: ANION GAP 9 MEQ/L (8-16); BLOOD UREA NITROGEN 12 MG/DL (7-18); CALCIUM LEVEL 8.3 MG/DL (8.8-10.2); CARBON DIOXIDE LEVEL 24 MEQ/L (21-32); CHLORIDE LEVEL 104 MEQ/L (98-107); CREATININE FOR GFR 0.62 MG/DL (0.55-1.30); GLOMERULAR FILTRATION RATE > 60.0 (>32); GLUCOSE, FASTING 99 MG/DL (70-100); POTASSIUM SERUM 3.6 MEQ/L (3.5-5.1); SODIUM LEVEL 137 MEQ/L (136-145)
[2018-03-06] MEDS: raNITIdine SYRUP 150 MG/10 ML UDC PO ×2 (08:26→20:22)
[2018-03-06] MEDS: FUROSEMIDE 20 MG TAB PO ×2 (08:26→17:12)
[2018-03-06] MEDS: CHOLESTYRAMINE 4 GM PWD PKT PO ×2 (08:27→20:20)
[2018-03-06] MEDS: MESALAMINE 400 MG CAPSULE DELAYED RELEASE (DELZICOL) PO ×3 (08:27→20:20)
[2018-03-06] MEDS: MAGNESIUM OXIDE 400 MG TAB (MAG-OX) PO ×2 (08:28→20:22)
[2018-03-06] MEDS: MULTIVITAMINS/MINERALS THERAP 1 TAB PO (08:28)
[2018-03-06] MEDS: SPIRONOLACTONE 25 MG TAB PO (08:30)
[2018-03-06] MEDS: glipiZIDE (GLUCOTROL) 5 MG TAB PO (08:30)
[2018-03-06] MEDS: LOSARTAN 50 MG TAB PO (08:30)
[2018-03-06] MEDS: ASPIRIN 81 MG ENTERIC TAB PO (08:30)
[2018-03-06] MEDS: ENOXAPARIN 40 MG/0.4 ML SYRINGE (J1650) SC (08:31)
[2018-03-06] MEDS: ADVAIR HFA 45/21MCG INHALER INH ×2 (08:43→22:04)
[2018-03-06 17:04] LABS: BEDSIDE GLUCOSE 114 MG/DL (83-110)
[2018-03-06] MEDS: LORATADINE 10 MG TAB PO (20:21)
[2018-03-06] MEDS: PRAVASTATIN 20 MG TAB PO (20:21)
[2018-03-06] MEDS: ALPRAZolam 0.5 MG TAB PO (20:21)
[2018-03-06] MEDS: MONTELUKAST 10 MG TAB PO (20:22)
[2018-03-07] MEDS: LOPERAMIDE 2 MG CAP PO ×5 (02:53→20:31)
[2018-03-07] MEDS: ACETAMINOPHEN TAB 650MG DOSE (2X325MG) PO ×4 (02:53→20:34)
[2018-03-07 06:53] LABS: BEDSIDE GLUCOSE 107 MG/DL (83-110)
[2018-03-07] MEDS: ADVAIR HFA 45/21MCG INHALER INH ×2 (07:34→20:00)
[2018-03-07] MEDS: CHOLESTYRAMINE 4 GM PWD PKT PO ×2 (09:01→20:32)
[2018-03-07] MEDS: MAGNESIUM OXIDE 400 MG TAB (MAG-OX) PO ×2 (09:02→20:31)
[2018-03-07] MEDS: MULTIVITAMINS/MINERALS THERAP 1 TAB PO (09:02)
[2018-03-07] MEDS: LOSARTAN 50 MG TAB PO (09:02)
[2018-03-07] MEDS: SPIRONOLACTONE 25 MG TAB PO (09:02)
[2018-03-07] MEDS: glipiZIDE (GLUCOTROL) 5 MG TAB PO (09:03)
[2018-03-07] MEDS: ASPIRIN 81 MG ENTERIC TAB PO (09:03)
[2018-03-07] MEDS: ENOXAPARIN 40 MG/0.4 ML SYRINGE (J1650) SC (09:04)
[2018-03-07] MEDS: raNITIdine SYRUP 150 MG/10 ML UDC PO ×2 (09:12→20:31)
[2018-03-07] MEDS: MESALAMINE 400 MG CAPSULE DELAYED RELEASE (DELZICOL) PO ×3 (09:13→20:32)
[2018-03-07] MEDS: FUROSEMIDE 20 MG TAB PO ×2 (09:14→16:26)
[2018-03-07 17:00] LABS: BEDSIDE GLUCOSE 107 MG/DL (83-110)
[2018-03-07] MEDS: MONTELUKAST 10 MG TAB PO (20:31)
[2018-03-07] MEDS: ALPRAZolam 0.5 MG TAB PO (20:31)
[2018-03-07] MEDS: LORATADINE 10 MG TAB PO (20:31)
[2018-03-07] MEDS: PRAVASTATIN 20 MG TAB PO (20:31)
[2018-03-08] MEDS: LOPERAMIDE 2 MG CAP PO ×5 (02:29→21:22)
[2018-03-08] MEDS: ACETAMINOPHEN TAB 650MG DOSE (2X325MG) PO ×4 (02:29→21:21)
[2018-03-08 07:34] LABS: ANION GAP 8 MEQ/L (8-16); BLOOD UREA NITROGEN 14 MG/DL (7-18); CALCIUM LEVEL 8.9 MG/DL (8.8-10.2); CARBON DIOXIDE LEVEL 27 MEQ/L (21-32); CHLORIDE LEVEL 100 MEQ/L (98-107); GLOMERULAR FILTRATION RATE > 60.0 (>32); GLUCOSE, FASTING 89 MG/DL (70-100); POTASSIUM SERUM 4.2 MEQ/L (3.5-5.1); SODIUM LEVEL 135 MEQ/L (136-145)
[2018-03-08] MEDS: CHOLESTYRAMINE 4 GM PWD PKT PO ×2 (07:39→21:22)
[2018-03-08] MEDS: raNITIdine SYRUP 150 MG/10 ML UDC PO ×2 (07:39→21:22)
[2018-03-08] MEDS: MESALAMINE 400 MG CAPSULE DELAYED RELEASE (DELZICOL) PO ×3 (07:39→21:21)
[2018-03-08] MEDS: MAGNESIUM OXIDE 400 MG TAB (MAG-OX) PO ×2 (07:39→21:21)
[2018-03-08] MEDS: LOSARTAN 50 MG TAB PO (07:40)
[2018-03-08] MEDS: MULTIVITAMINS/MINERALS THERAP 1 TAB PO (07:40)
[2018-03-08] MEDS: FUROSEMIDE 20 MG TAB PO ×2 (07:41→17:24)
[2018-03-08] MEDS: SPIRONOLACTONE 25 MG TAB PO (07:41)
[2018-03-08] MEDS: glipiZIDE (GLUCOTROL) 5 MG TAB PO (07:41)
[2018-03-08] MEDS: ENOXAPARIN 40 MG/0.4 ML SYRINGE (J1650) SC (07:41)
[2018-03-08] MEDS: ASPIRIN 81 MG ENTERIC TAB PO (07:41)
[2018-03-08] MEDS: ADVAIR HFA 45/21MCG INHALER INH ×2 (07:55→19:52)
[2018-03-08] MEDS ORDERED: DEXTRAN/HYPROMELLOSE OPHTH SOLN 15 ML(GENTEAL TEARS) OU (11:15)
[2018-03-08 17:18] LABS: BEDSIDE GLUCOSE 84 MG/DL (83-110)
[2018-03-08] MEDS: MONTELUKAST 10 MG TAB PO (21:21)
[2018-03-08] MEDS: PRAVASTATIN 20 MG TAB PO (21:22)
[2018-03-08] MEDS: LORATADINE 10 MG TAB PO (21:22)
[2018-03-08] MEDS: ALPRAZolam 0.5 MG TAB PO (21:22)
[2018-03-09 06:44] LABS: BEDSIDE GLUCOSE 94 MG/DL (83-110)
[2018-03-09] MEDS: ADVAIR HFA 45/21MCG INHALER INH ×2 (07:44→19:58)
[2018-03-09] MEDS: CHOLESTYRAMINE 4 GM PWD PKT PO ×2 (08:36→20:52)
[2018-03-09] MEDS: ENOXAPARIN 40 MG/0.4 ML SYRINGE (J1650) SC (08:36)
[2018-03-09] MEDS: raNITIdine SYRUP 150 MG/10 ML UDC PO ×2 (08:36→20:53)
[2018-03-09] MEDS: glipiZIDE (GLUCOTROL) 5 MG TAB PO (08:37)
[2018-03-09] MEDS: MULTIVITAMINS/MINERALS THERAP 1 TAB PO (08:38)
[2018-03-09] MEDS: FUROSEMIDE 20 MG TAB PO ×2 (08:38→16:47)
[2018-03-09] MEDS: MESALAMINE 400 MG CAPSULE DELAYED RELEASE (DELZICOL) PO ×3 (08:39→20:53)
[2018-03-09] MEDS: LOPERAMIDE 2 MG CAP PO (08:39)
[2018-03-09] MEDS: SPIRONOLACTONE 25 MG TAB PO (08:39)
[2018-03-09] MEDS: LOSARTAN 50 MG TAB PO (08:40)
[2018-03-09] MEDS: MAGNESIUM OXIDE 400 MG TAB (MAG-OX) PO ×2 (08:40→20:53)
[2018-03-09] MEDS: ASPIRIN 81 MG ENTERIC TAB PO (08:40)
[2018-03-09] MEDS: DICYCLOMINE 10 MG CAP PO ×2 (12:39→20:56)
[2018-03-09 16:39] LABS: BEDSIDE GLUCOSE 109 MG/DL (83-110)
[2018-03-09] MEDS: PRAVASTATIN 20 MG TAB PO (20:53)
[2018-03-09] MEDS: ALPRAZolam 0.5 MG TAB PO (20:53)
[2018-03-09] MEDS: MONTELUKAST 10 MG TAB PO (20:53)
[2018-03-09] MEDS: LORATADINE 10 MG TAB PO (20:53)
[2018-03-10] MEDS: ACETAMINOPHEN TAB 650MG DOSE (2X325MG) PO ×3 (03:16→22:16)
[2018-03-10] MEDS: LOPERAMIDE 2 MG CAP PO ×3 (03:16→22:16)
[2018-03-10] MEDS: ADVAIR HFA 45/21MCG INHALER INH ×2 (08:06→20:57)
[2018-03-10 08:38] LABS: BEDSIDE GLUCOSE 104 MG/DL (83-110)
[2018-03-10] MEDS: DICYCLOMINE 10 MG CAP PO ×2 (08:38→16:41)
[2018-03-10] MEDS: FUROSEMIDE 20 MG TAB PO ×2 (08:38→16:41)
[2018-03-10] MEDS: raNITIdine SYRUP 150 MG/10 ML UDC PO ×2 (08:38→20:17)
[2018-03-10] MEDS: ENOXAPARIN 40 MG/0.4 ML SYRINGE (J1650) SC (08:38)
[2018-03-10] MEDS: MULTIVITAMINS/MINERALS THERAP 1 TAB PO (08:38)
[2018-03-10] MEDS: SPIRONOLACTONE 25 MG TAB PO (08:39)
[2018-03-10] MEDS: MAGNESIUM OXIDE 400 MG TAB (MAG-OX) PO ×2 (08:39→20:17)
[2018-03-10] MEDS: glipiZIDE (GLUCOTROL) 5 MG TAB PO (08:39)
[2018-03-10] MEDS: LOSARTAN 50 MG TAB PO (08:39)
[2018-03-10] MEDS: MESALAMINE 400 MG CAPSULE DELAYED RELEASE (DELZICOL) PO ×3 (08:40→20:17)
[2018-03-10] MEDS: ASPIRIN 81 MG ENTERIC TAB PO (08:40)
[2018-03-10] MEDS: CHOLESTYRAMINE 4 GM PWD PKT PO ×2 (08:40→20:16)
[2018-03-10 16:46] LABS: BEDSIDE GLUCOSE 93 MG/DL (83-110)
[2018-03-10] MEDS: PRAVASTATIN 20 MG TAB PO (20:16)
[2018-03-10] MEDS: MONTELUKAST 10 MG TAB PO (20:17)
[2018-03-10] MEDS: LORATADINE 10 MG TAB PO (20:17)
[2018-03-10] MEDS: ALPRAZolam 0.5 MG TAB PO (22:16)
[2018-03-11] MEDS: LOPERAMIDE 2 MG CAP PO ×3 (01:32→14:03)
[2018-03-11] MEDS: DICYCLOMINE 10 MG CAP PO ×2 (01:32→14:03)
[2018-03-11 04:33] LABS: BEDSIDE GLUCOSE 89 MG/DL (83-110)
[2018-03-11] MEDS: ADVAIR HFA 45/21MCG INHALER INH (07:35)
[2018-03-11] MEDS: MAGNESIUM OXIDE 400 MG TAB (MAG-OX) PO (10:47)
[2018-03-11] MEDS: MESALAMINE 400 MG CAPSULE DELAYED RELEASE (DELZICOL) PO ×2 (10:47→14:58)
[2018-03-11] MEDS: FUROSEMIDE 20 MG TAB PO (10:47)
[2018-03-11] MEDS: LOSARTAN 50 MG TAB PO (10:49)
[2018-03-11] MEDS: MULTIVITAMINS/MINERALS THERAP 1 TAB PO (10:49)
[2018-03-11] MEDS: CHOLESTYRAMINE 4 GM PWD PKT PO (10:50)
[2018-03-11] MEDS: SPIRONOLACTONE 25 MG TAB PO (10:50)
[2018-03-11] MEDS: ASPIRIN 81 MG ENTERIC TAB PO (10:50)
[2018-03-11] MEDS: raNITIdine SYRUP 150 MG/10 ML UDC PO (10:51)
[2018-03-11] MEDS: ENOXAPARIN 40 MG/0.4 ML SYRINGE (J1650) SC (10:51)
[2018-03-11] MEDS: glipiZIDE (GLUCOTROL) 5 MG TAB PO (10:54)
[2018-03-11] MEDS: ACETAMINOPHEN TAB 650MG DOSE (2X325MG) PO (14:58)
== END 2018-03-11 15:50 | disposition home health service (06) | DRG 552 ==
LOC: M ED 08:06 → M ED INP 19:42 → M MSPAV 21:39
PROC: 0DBK8ZX Excision of Ascending Colon, Via Natural or Artificial Opening Endoscopic, Diagnostic (ICD-10-PCS; principal; 2018-02-26 15:40)
PROC: 0DBN8ZX Excision of Sigmoid Colon, Via Natural or Artificial Opening Endoscopic, Diagnostic (ICD-10-PCS; 2018-02-26 15:40)
DX: S32.030A Wedge compression fracture of third lumbar vertebra, initial encounter for closed fracture (principal); M62.82 Rhabdomyolysis; K50.10 Crohn's disease of large intestine without complications; Z68.41 Body mass index [BMI] 40.0-44.9, adult; R19.7 Diarrhea, unspecified; E11.9 Type 2 diabetes mellitus without complications; I11.0 Hypertensive heart disease with heart failure; I50.9 Heart failure, unspecified; M51.36 Other intervertebral disc degeneration, lumbar region; E66.01 Morbid (severe) obesity due to excess calories; M54.5 Low back pain; K64.0 First degree hemorrhoids; Z79.82 Long term (current) use of aspirin; Z79.84 Long term (current) use of oral hypoglycemic drugs; Z79.899 Other long term (current) drug therapy; Z88.0 Allergy status to penicillin; Z88.8 Allergy status to other drugs, medicaments and biological substances; Z88.1 Allergy status to other antibiotic agents; W19.XXXA Unspecified fall, initial encounter; Y92.9 Unspecified place or not applicable

== ENCOUNTER → 2018-03-24 | Outpatient (CLI) | payer OTHER, MEDICAID, MEDICARE | LOC: M RAD 12:40 | DX: M71.21 Synovial cyst of popliteal space [Baker], right knee (principal); R60.0 Localized edema | CPT/HCPCS: 93970 ==

== ENCOUNTER → 2018-09-02 | Outpatient (REF) | payer MEDICARE, MEDICAID ==
[~2018-09-02] MED LIST changes: -/HCTZ25TA PO; -/PRAV20TA PO; -/RANI15TA PO; -ACET50TA PO; +ADVA45AE; +ALDA25TA2 PO; +ALPR0.5T3 PO; +BENZ200C70 PO; +CALC1TAB21 PO; +CHOL4POW3 PO; +CHOL4PW PO; +COLA100C5 PO; +DELZ400C PO; +DICL1GEL3; +DICY1CAP8 PO; +FURO20TA2 PO; +FURO40TA2 PO; +GABA-843 PO; +GLIM1TAB; +GLIP5TAB8; +GLIP5TAB8 PO; +HYDR-3644 PO; +HYDR-3713 PO; +LOPE2CA PO; +LORA-243 PO; +LOSA50TA88 PO; +MAG400TA PO; +MAPA500T17 PO; +MONT10TA2 PO; +NAPR-885; +POTA20TA6 PO; +PRAV1TAB39 PO; +PRAV40TA2 PO; +PROAAER10 INH; +RANI1SYP PO; +RANI1TAB17 PO; +TRAM1CAP15 PO; +TRAM50TA2 PO; +VERA180T3 PO; +VITA50005 PO; +VITMTA PO
[2018-09-02 16:42] LABS: ALBUMIN 3.5 GM/DL (3.2-5.2); BILIRUBIN,TOTAL 0.5 MG/DL (0.2-1.0); CALCIUM LEVEL 10.1 MG/DL (8.8-10.2); CREATININE FOR GFR 0.99 MG/DL (0.55-1.30); POTASSIUM SERUM 4.4 MEQ/L (3.5-5.1); TOTAL PROTEIN 6.7 GM/DL (6.4-8.2)
[2018-09-02 17:04] LABS: HEMOGLOBIN A1c 6.6 %
[2018-09-02 17:19] LABS: HEMATOCRIT 39.2 % (36.0-47.0); HEMOGLOBIN 12.6 g/dl (12.0-15.5); MEAN CORPUSCULAR HEMOGLOBIN 29.9 pg (27.0-33.0); MEAN CORPUSCULAR HGB CONC 32.1 g/dl (32.0-36.5); MEAN CORPUSCULAR VOLUME 92.9 fl (80.0-96.0); PLATELET COUNT, AUTOMATED 329 10^3/uL (150-450); RED BLOOD COUNT 4.22 10^6/uL (4.00-5.40); WHITE BLOOD COUNT 6.7 10^3/uL (4.0-10.0)
[2018-09-02 18:04] LABS: INR 0.96; PROTHROMBIN TIME 12.9 SECONDS (12.1-14.4)
== END ==
LOC: M SFHCCLAY 12:14
PROVIDERS: ATTEND Family Medicine
DX: E11.40 Type 2 diabetes mellitus with diabetic neuropathy, unspecified (principal); K50.10 Crohn's disease of large intestine without complications
CPT/HCPCS: 80053; 83036; 85027; 85610; 85730; G0463

== ENCOUNTER → 2018-12-13 | Outpatient (CLI) | payer MEDICARE, MEDICAID ==
--- NOTE | 2018-12-13 14:28 | REP ---
CHEST, TWO VIEWS: Two view of the chest are performed. There is no acute infiltrate. There is mild fibroatelectatic change in the left lung base with mild elevation of the hemidiaphragm unchanged. The heart is not enlarged. There is a large hiatal hernia. There is calcification and tortuosity of the thoracic aorta. The mediastinal silhouette is unchanged. There is osteopenia. There is new mild to moderate compression of the T12 vertebral body compared to the prior CT exam 02/23/2018. Stable compression deformity is noted of L3. IMPRESSION: No evidence of acute infiltrate. Large hiatal hernia. New mild to moderate compression deformity of T12 compared to prior CT of 02/23/2018.
== END ==
LOC: M CLY 13:28
PROVIDERS: ATTEND Family Medicine
DX: K44.9 Diaphragmatic hernia without obstruction or gangrene (principal); R05 Cough; R06.02 Shortness of breath
CPT/HCPCS: 71046; G0463

== ENCOUNTER → 2019-03-10 | Outpatient (REF) | payer MEDICARE, MEDICAID ==
[2019-03-10 16:42] LABS: CALCIUM LEVEL 9.2 MG/DL (8.8-10.2); PHOSPHORUS LEVEL 3.3 MG/DL (2.5-4.9); TOTAL PROTEIN 6.2 GM/DL (6.4-8.2)
== END ==
LOC: M LABDRAWC 16:03
PROVIDERS: ATTEND Internal Medicine Endocrinology, Diabetes & Metabolism
DX: S22.080D Wedge compression fracture of T11-T12 vertebra, subsequent encounter for fracture with routine healing (principal)

== ENCOUNTER → 2019-03-10 | Outpatient (REF) | payer MEDICARE, MEDICAID ==
[~2019-03-10] MED LIST changes: -GLIM1TAB; +GLIM1TAB2
[2019-03-10 16:32] LABS: HEMATOCRIT 39.7 % (36.0-47.0); HEMOGLOBIN 12.6 g/dl (12.0-15.5); MEAN CORPUSCULAR HEMOGLOBIN 30.2 pg (27.0-33.0); MEAN CORPUSCULAR HGB CONC 31.7 g/dl (32.0-36.5); MEAN CORPUSCULAR VOLUME 95.2 fl (80.0-96.0); PLATELET COUNT, AUTOMATED 339 10^3/uL (150-450); RED BLOOD COUNT 4.17 10^6/uL (4.00-5.40); WHITE BLOOD COUNT 7.3 10^3/uL (4.0-10.0)
== END ==
LOC: M SFHCCLAY 12:14
PROVIDERS: ATTEND Family Medicine
DX: D69.2 Other nonthrombocytopenic purpura (principal); E83.52 Hypercalcemia; Z23 Encounter for immunization
CPT/HCPCS: 36415; 82310; 83970; 84100; 84165; 85027; 90682; G0008; G0463

== ENCOUNTER 2019-04-02 08:37 | Emergency (ER) | payer MEDICARE, MEDICAID ==
[~2019-04-02] VITALS: Ht 152.4 cm; Wt 72.7 kg
[2019-04-02] MEDS ORDERED: traMADol 50 MG TAB PO ONE (09:00)
--- NOTE | 2019-04-02 09:23 | REP ---
LEFT WRIST, FOUR VIEWS: Four views of the left wrist performed. I see no acute fracture or dislocation. There is diffuse chondrocalcinosis with mild joint space narrowing and subchondral sclerosis at the radiocarpal joint. There is narrowing and subchondral sclerosis at the joint between the trapezium and scaphoid, and trapezium and base of first metacarpal. There is osteopenia. There are vascular calcifications. IMPRESSION: Degenerative changes without evidence of acute fracture or dislocation. Electronically Signed by Benny Linda MD 04/02/2019 03:42 P
[2019-04-02] MEDS ORDERED: BIOT1CAP2 PO (09:35)
[2019-04-02] MEDS ORDERED: JANU100T PO (09:35)
[2019-04-02] MEDS ORDERED: FURO80TA2 PO (09:35)
[2019-04-02] MEDS ORDERED: CALC1TAB42 PO (09:35)
[2019-04-02] MEDS ORDERED: FURO40TA2 PO (09:35)
[2019-04-02] MEDS ORDERED: TRAM50TA2 PO ×3 (09:45→10:02)
[2019-04-02 09:54] VITALS: BP 150/73
== END 2019-04-02 10:15 | disposition home or self-care (01) ==
LOC: M ED 08:37
DX: S69.92XA Unspecified injury of left wrist, hand and finger(s), initial encounter (principal); X50.9XXA Other and unspecified overexertion or strenuous movements or postures, initial encounter; Y92.019 Unspecified place in single-family (private) house as the place of occurrence of the external cause; M19.032 Primary osteoarthritis, left wrist; M81.0 Age-related osteoporosis without current pathological fracture; E11.9 Type 2 diabetes mellitus without complications; I11.0 Hypertensive heart disease with heart failure; I50.9 Heart failure, unspecified; J44.9 Chronic obstructive pulmonary disease, unspecified; J45.909 Unspecified asthma, uncomplicated; F41.9 Anxiety disorder, unspecified; K21.9 Gastro-esophageal reflux disease without esophagitis; K57.90 Diverticulosis of intestine, part unspecified, without perforation or abscess without bleeding; M54.30 Sciatica, unspecified side; Z87.442 Personal history of urinary calculi; Z79.84 Long term (current) use of oral hypoglycemic drugs; Z90.49 Acquired absence of other specified parts of digestive tract; Z79.899 Other long term (current) drug therapy; Z88.0 Allergy status to penicillin; Z88.8 Allergy status to other drugs, medicaments and biological substances; Z88.5 Allergy status to narcotic agent

== ENCOUNTER → 2019-12-01 | Outpatient (REF) | payer MEDICARE, MEDICAID ==
[~2019-12-01] MED LIST changes: +ASPI81TA86 PO; +BIOT1CAP2 PO; +CALC1TAB42 PO; -DELZ400C PO; +DELZ400C5 PO; +FURO80TA2 PO; +GABA-282 PO; -GABA-843 PO; -GLIM1TAB2; +GLIM1TAB4; +JANU100T PO; -MAG400TA PO; +MAGN400T35 PO; +MONT10TA10 PO; -MONT10TA2 PO
[2019-12-02 12:09] LABS: HEMATOCRIT 40.8 % (36.0-47.0); MEAN CORPUSCULAR HEMOGLOBIN 30.4 pg (27.0-33.0); MEAN CORPUSCULAR HGB CONC 31.9 g/dl (32.0-36.5); MEAN CORPUSCULAR VOLUME 95.6 fl (80.0-96.0); PLATELET COUNT, AUTOMATED 301 10^3/uL (150-450); RED BLOOD COUNT 4.27 10^6/uL (4.00-5.40); WHITE BLOOD COUNT 11.5 10^3/uL (4.0-10.0)
[2019-12-02 12:30] LABS: ALBUMIN 3.6 GM/DL (3.2-5.2); BILIRUBIN,TOTAL 0.3 MG/DL (0.2-1.0); CALCIUM LEVEL 10.4 MG/DL (8.8-10.2); CREATININE FOR GFR 0.97 MG/DL (0.55-1.30); GLOMERULAR FILTRATION RATE 58.2 (>32); POTASSIUM SERUM 4.7 MEQ/L (3.5-5.1); THYROID STIMULATING HORMONE 0.59 uIU/ML (0.358-3.740); TOTAL PROTEIN 7.2 GM/DL (6.4-8.2)
== END ==
LOC: M SFHCCLAY 14:16
PROVIDERS: ATTEND Family Medicine
DX: J44.9 Chronic obstructive pulmonary disease, unspecified (principal); K50.10 Crohn's disease of large intestine without complications; I10 Essential (primary) hypertension; E11.40 Type 2 diabetes mellitus with diabetic neuropathy, unspecified

== ENCOUNTER → 2020-10-15 | Outpatient (CLI) | payer MEDICARE, MEDICAID ==
--- NOTE | 2020-10-15 15:32 | REP ---
INDICATION: STRAIN COMPARISON: 12/13/2018 TECHNIQUE: Frontal view of the chest with four views of the left hemithorax. FINDINGS: Frontal view of the chest demonstrates chronic changes including large hiatal hernia. Old healed right rib fractures and generalized osteopenia noted. Multiple views of the left hemithorax demonstrates no acute rib fracture/injury or pathology. IMPRESSION: Normal rib series. Stable large hiatal hernia. <Electronically signed by Davin Gentile > 10/15/20 1523
== END ==
LOC: M WUC 13:36
PROVIDERS: ATTEND Physician Assistant
DX: K44.9 Diaphragmatic hernia without obstruction or gangrene (principal); M85.88 Other specified disorders of bone density and structure, other site

== ENCOUNTER → 2022-08-04 | Outpatient (REF) | payer MEDICARE, MEDICAID ==
[~2022-08-04] MED LIST changes: +CHOL378P3 PO; -CHOL4POW3 PO; +LOSA50TA28 PO; -LOSA50TA88 PO; -MONT10TA10 PO; +MONT10TA97 PO; +POTA-151 PO; -POTA20TA6 PO; -VERA180T3 PO; +VERA180T42 PO
== END ==
PROVIDERS: ATTEND Family Medicine
DX: Z87.01 Personal history of pneumonia (recurrent) (principal)

== ENCOUNTER → 2022-08-04 | Outpatient (REF) ==
[2022-08-04 15:36] LABS: HEMATOCRIT 34.9 % (36.0-47.0); HEMOGLOBIN 10.9 g/dl (12.0-15.5); MEAN CORPUSCULAR HEMOGLOBIN 29.7 pg (27.0-33.0); MEAN CORPUSCULAR HGB CONC 31.2 g/dl (32.0-36.5); MEAN CORPUSCULAR VOLUME 95.1 fl (80.0-96.0); PLATELET COUNT, AUTOMATED 271 10^3/uL (150-450); RED BLOOD COUNT 3.67 10^6/uL (4.00-5.40); WHITE BLOOD COUNT 8.5 10^3/uL (4.0-10.0)
[2022-08-04 17:10] LABS: ALBUMIN 2.1 G/DL (3.2-5.2); ALKALINE PHOSPHATASE 101 U/L (46-116); ALT/SGPT 12 U/L (7.0-40); AST/SGOT 31 U/L (<34); BILIRUBIN,TOTAL 0.4 MG/DL (0.3-1.2); BLOOD UREA NITROGEN 8 MG/DL (9-23); CALCIUM LEVEL 8.4 MG/DL (8.3-10.6); CARBON DIOXIDE LEVEL 28 MMOL/L (20-31); CHLORIDE LEVEL 106 MMOL/L (98-107); CREATININE FOR GFR 0.59 MG/DL (0.55-1.30); GLOMERULAR FILTRATION RATE > 60.0 (>32); GLUCOSE, FASTING 112 MG/DL (74-106); POTASSIUM SERUM 3.7 MMOL/L (3.5-5.1); SODIUM LEVEL 139 MMOL/L (136-145); THYROID STIMULATING HORMONE 6.005 uIU/ML (0.55-4.78); THYROXINE (T4) 7.6 UG/DL (4.5-10.9); TOTAL PROTEIN 4.7 G/DL (5.7-8.2)
== END ==
PROVIDERS: ATTEND Family Medicine
DX: E46 Unspecified protein-calorie malnutrition (principal); R60.9 Edema, unspecified

== ENCOUNTER → 2022-08-05 | Outpatient (REF) | PROVIDERS: ATTEND Physician Assistant | DX: R19.7 Diarrhea, unspecified (principal) ==

== ENCOUNTER → 2022-08-06 | Outpatient (REF) | PROVIDERS: ATTEND Physician Assistant | DX: R19.7 Diarrhea, unspecified (principal) ==

== ENCOUNTER 2022-09-01 16:07 | Inpatient (IN) | payer MEDICARE, MEDICAID ==
[~2022-09-01] VITALS: Ht 142.2 cm; Wt 76.0 kg
[~2022-09-01 16:07] MED LIST changes: -ACET-897 PO; -ACET-907 PO; -AIRD1INH2 INH; -ANTI2TAB16 PO; -BISA10SU PR; -DICL20GE TOP; -FAMO20TA PO; -FLEEENE12 PR; -MILKSUS3 PO; -OXYC-517 PO; -PROC5TAB57 PO; -RISATAB3 PO; -SPIR-10 PO; -SULF500T2 PO; -XALA0.007 OU
[2022-09-01] MEDS ORDERED: NS 1,000 ML IV SCH ×2 (16:40→23:35)
[2022-09-01 17:31] LABS: BASO # 0.1 10^3/uL (0.0-0.2); BASO % 0.6 % (0.0-1.0); EOS # 0.1 10^3/uL (0.0-0.5); EOS % 0.6 % (0.0-3.0); HEMATOCRIT 38.6 % (36.0-47.0); HEMOGLOBIN 12.1 g/dl (12.0-15.5); LYMPH # 3.3 10^3/uL (1.5-5.0); LYMPH % 35.6 % (24.0-44.0); MEAN CORPUSCULAR HEMOGLOBIN 29.4 pg (27.0-33.0); MEAN CORPUSCULAR HGB CONC 31.3 g/dl (32.0-36.5); MEAN CORPUSCULAR VOLUME 93.7 fl (80.0-96.0); MONO % 10.5 % (2.0-8.0); NEUTROPHILS # 4.9 10^3/uL (1.5-8.5); NEUTROPHILS % 52.2 % (36.0-66.0); PLATELET COUNT, AUTOMATED 297 10^3/uL (150-450); RED BLOOD COUNT 4.12 10^6/uL (4.00-5.40); WHITE BLOOD COUNT 9.4 10^3/uL (4.0-10.0)
[2022-09-01 18:09] LABS: ALBUMIN 2.6 G/DL (3.2-5.2); ALKALINE PHOSPHATASE 71 U/L (46-116); ALT/SGPT 19 U/L (7.0-40); AST/SGOT 70 U/L (<34); BILIRUBIN,DIRECT 0.2 MG/DL (<0.4); BILIRUBIN,TOTAL 0.6 MG/DL (0.3-1.2); BLOOD UREA NITROGEN 25 MG/DL (9-23); CARBON DIOXIDE LEVEL 34 MMOL/L (20-31); CHLORIDE LEVEL 93 MMOL/L (98-107); CK-MB VALUE MASS 4.5 NG/ML (<3.6); CPK CREATINE PHOSPHOKINASE 62 U/L (34-145); CREATININE FOR GFR 0.64 MG/DL (0.55-1.30); GLOMERULAR FILTRATION RATE > 60.0 (>32); GLUCOSE, FASTING 64 MG/DL (74-106); MB/CK RELATIVE INDEX 7.25 (< OR =4); POTASSIUM SERUM 3.9 MMOL/L (3.5-5.1); SODIUM LEVEL 134 MMOL/L (136-145); THYROID STIMULATING HORMONE 5.009 uIU/ML (0.55-4.78); THYROXINE (T4) 8.9 UG/DL (4.5-10.9); TOTAL PROTEIN 5.7 G/DL (5.7-8.2)
[2022-09-01 18:11] LABS: CALCIUM LEVEL 16.9 MG/DL (8.3-10.6)
[2022-09-01] MEDS ORDERED: ISOVUE-370 76% 100ML VIAL As Ordered ONE (18:31)
[2022-09-01] MEDS ORDERED: MAG SULF 1GM/100ML (MAG RUN) 1 GM in IV 1 EA IV ONE (19:15)
[2022-09-01 19:53] LABS: CK-MB VALUE MASS 3.9 NG/ML (<3.6)
[2022-09-01 19:57] LABS: MB/CK RELATIVE INDEX 13.44 (< OR =4); THYROID STIMULATING HORMONE 3.731 uIU/ML (0.55-4.78)
[2022-09-01] MEDS ORDERED: NS 500 ML IV ONE ×2 (20:05→23:35)
[2022-09-01] MEDS ORDERED: NS 1,000 ML IV ONE (20:15)
[2022-09-01 20:22] LABS: TOTAL 25(OH) VITAMIN D 64.4 NG/ML (20.0-100.0)
[2022-09-01 21:43] LABS: PTH INTACT 57.5 PG/ML (18.5-88.0)
[2022-09-01 21:55] LABS: CALCIUM LEVEL 15.7 MG/DL (8.3-10.6)
[2022-09-01] MEDS ORDERED: ACETAMINOPHEN TAB 650MG DOSE (2X325MG) PO PRN (23:35)
[2022-09-02] MEDS ORDERED: ANTI2TAB16 PO ×2 (00:06→00:14)
[2022-09-02] MEDS ORDERED: AIRD1INH2 INH (00:06)
[2022-09-02] MEDS ORDERED: XALA0.007 OU (00:06)
[2022-09-02] MEDS ORDERED: ALPR0.5T3 PO (00:06)
[2022-09-02] MEDS ORDERED: SPIR-10 PO (00:06)
[2022-09-02] MEDS ORDERED: ACET-897 PO (00:06)
[2022-09-02] MEDS ORDERED: ACET-907 PO (00:14)
[2022-09-02] MEDS ORDERED: FLEEENE12 PR (00:14)
[2022-09-02] MEDS ORDERED: FAMO20TA PO (00:14)
[2022-09-02] MEDS ORDERED: OXYC-517 PO (00:14)
[2022-09-02] MEDS ORDERED: BISA10SU PR (00:14)
[2022-09-02] MEDS ORDERED: SULF500T2 PO (00:14)
[2022-09-02] MEDS ORDERED: RISATAB3 PO (00:14)
[2022-09-02] MEDS ORDERED: MILKSUS3 PO (00:14)
[2022-09-02] MEDS ORDERED: PROC5TAB57 PO (00:14)
[2022-09-02] MEDS ORDERED: DICL20GE TOP (00:14)
[2022-09-02] MEDS ORDERED: HOME MED LIST COMPLETE! XX SCH (00:15)
[2022-09-02 00:47] LABS: ERYTHROCYTE SEDIMENTATION RATE 12 mm/hr (0-30)
[2022-09-02 01:41] VITALS: BP 127/61
[2022-09-02] MEDS ORDERED: CALCITONIN SALMON (MIACALCIN) 400INTERNATIONAL UNITS/2ML VIAL SC ONE (02:00)
[2022-09-02] MEDS: metroNIDAZOLE (FLAGYL) 500MG TABLET PO SCH ×4 (02:16→21:37)
[2022-09-02] MEDS: DOXYCYCLINE HYCLATE 100MG TABLET PO SCH ×3 (02:16→21:38)
[2022-09-02 06:37] LABS: BLOOD UREA NITROGEN 22 MG/DL (9-23); CALCIUM LEVEL 14.8 MG/DL (8.3-10.6); CARBON DIOXIDE LEVEL 28 MMOL/L (20-31); CHLORIDE LEVEL 100 MMOL/L (98-107); GLOMERULAR FILTRATION RATE > 60.0 (>32); GLUCOSE, FASTING 65 MG/DL (74-106); POTASSIUM SERUM 2.9 MMOL/L (3.5-5.1); SODIUM LEVEL 137 MMOL/L (136-145)
[2022-09-02 06:38] VITALS: BP 115/62
[2022-09-02] MEDS ORDERED: POTASSIUM CHLORIDE 10MEQ SR TABLET PO ONE (07:15)
[2022-09-02] MEDS: KCL 10MEQ/100ML SWI (KRUN) 10 MEQ in IV 1 EA IV SCH ×2 (07:51→09:11)
[2022-09-02] MEDS ORDERED: PROCHLORPERAZINE 5MG TAB PO PRN (07:55)
[2022-09-02] MEDS ORDERED: ACETAMINOPHEN TAB 650MG DOSE (2X325MG) PO PRN (07:55)
[2022-09-02] MEDS ORDERED: oxyCODONE 5MG TAB PO PRN (07:55)
[2022-09-02] MEDS ORDERED: LOPERAMIDE 2 MG CAPLET PO PRN (07:55)
[2022-09-02] MEDS: FAMOTIDINE 20 MG TAB PO SCH ×2 (09:11→21:37)
[2022-09-02] MEDS: MULTIVITAMINS/MINERALS THERAP 1 TAB PO SCH (09:11)
[2022-09-02] MEDS: SPIRONOLACTONE 25 MG TAB PO SCH (09:12)
[2022-09-02] MEDS ORDERED: FUROSEMIDE 20MG/2ML VIAL IV ONE (09:50)
[2022-09-02] MEDS: KCL 20MEQ in NS 1000ML 1,000 ML IV SCH (10:31)
[2022-09-02] MEDS: PINK BISMUTH SUSP 524MG/30ML ORAL SYRINGE PO SCH ×2 (13:13→21:37)
[2022-09-02 14:28] VITALS: BP 113/69
[2022-09-02 14:48] LABS: BLOOD UREA NITROGEN 20 MG/DL (9-23); CALCIUM LEVEL 14.8 MG/DL (8.3-10.6); CARBON DIOXIDE LEVEL 32 MMOL/L (20-31); CHLORIDE LEVEL 102 MMOL/L (98-107); CREATININE FOR GFR 0.53 MG/DL (0.55-1.30); GLOMERULAR FILTRATION RATE > 60.0 (>32); GLUCOSE, FASTING 86 MG/DL (74-106); POTASSIUM SERUM 3.6 MMOL/L (3.5-5.1); SODIUM LEVEL 138 MMOL/L (136-145)
[2022-09-02] MEDS: sulfaSALAzine 500 MG TABEC PO SCH ×2 (17:04→21:37)
[2022-09-02 20:00] VITALS: BP 110/64
[2022-09-02] MEDS: PRAVASTATIN 20 MG TAB PO SCH (21:37)
[2022-09-02] MEDS: LOPERAMIDE 2 MG CAPLET PO SCH (21:38)
[2022-09-02] MEDS: MONTELUKAST 10 MG TAB PO SCH (21:39)
[2022-09-02 21:40] VITALS: BP 110/64
[2022-09-02] MEDS: LOSARTAN 50MG TABLET PO SCH (21:40)
[2022-09-03] MEDS: LATANOPROST 0.005% OPHTH SOLN 2.5 ML OU SCH ×2 (00:29→22:43)
[2022-09-03] MEDS: KCL 20MEQ in NS 1000ML 1,000 ML IV SCH ×2 (01:06→15:10)
[2022-09-03] MEDS: metroNIDAZOLE (FLAGYL) 500MG TABLET PO SCH ×3 (05:18→22:00)
[2022-09-03] MEDS: HEPARIN SOD (PORCINE) 5000UNITS/ML 1ML VIAL/SYRINGE SC SCH ×2 (05:18→17:44)
[2022-09-03 06:00] VITALS: BP 117/52
[2022-09-03 06:28] LABS: BASO # 0.1 10^3/uL (0.0-0.2); BASO % 0.8 % (0.0-1.0); EOS # 0.1 10^3/uL (0.0-0.5); EOS % 0.6 % (0.0-3.0); HEMATOCRIT 32.7 % (36.0-47.0); HEMOGLOBIN 10.2 g/dl (12.0-15.5); LYMPH # 2.6 10^3/uL (1.5-5.0); LYMPH % 30.3 % (24.0-44.0); MEAN CORPUSCULAR HEMOGLOBIN 29.8 pg (27.0-33.0); MEAN CORPUSCULAR HGB CONC 31.2 g/dl (32.0-36.5); MEAN CORPUSCULAR VOLUME 95.6 fl (80.0-96.0); MONO # 1.2 10^3/uL (0.0-0.8); MONO % 14.3 % (2.0-8.0); NEUTROPHILS # 4.6 10^3/uL (1.5-8.5); NEUTROPHILS % 53.5 % (36.0-66.0); PLATELET COUNT, AUTOMATED 222 10^3/uL (150-450); RED BLOOD COUNT 3.42 10^6/uL (4.00-5.40); WHITE BLOOD COUNT 8.5 10^3/uL (4.0-10.0)
[2022-09-03 06:53] LABS: ALBUMIN 2.1 G/DL (3.2-5.2); ALKALINE PHOSPHATASE 62 U/L (46-116); ALT/SGPT 14 U/L (7.0-40); AST/SGOT 37 U/L (<34); BILIRUBIN,TOTAL 0.4 MG/DL (0.3-1.2); BLOOD UREA NITROGEN 21 MG/DL (9-23); CALCIUM LEVEL 14.1 MG/DL (8.3-10.6); CARBON DIOXIDE LEVEL 28 MMOL/L (20-31); CHLORIDE LEVEL 108 MMOL/L (98-107); CREATININE FOR GFR 0.63 MG/DL (0.55-1.30); GLOMERULAR FILTRATION RATE > 60.0 (>32); GLUCOSE, FASTING 75 MG/DL (74-106); MAGNESIUM LEVEL 1.5 MG/DL (1.8-2.4); POTASSIUM SERUM 4.4 MMOL/L (3.5-5.1); SODIUM LEVEL 142 MMOL/L (136-145); TOTAL PROTEIN 4.6 G/DL (5.7-8.2)
[2022-09-03] MEDS ORDERED: MAGNESIUM OXIDE 400MG TAB (MAG-OX) PO ONE (07:40)
[2022-09-03] MEDS: MULTIVITAMINS/MINERALS THERAP 1 TAB PO SCH (08:55)
[2022-09-03] MEDS: FAMOTIDINE 20 MG TAB PO SCH ×2 (08:55→21:00)
[2022-09-03] MEDS: PINK BISMUTH SUSP 524MG/30ML ORAL SYRINGE PO SCH ×3 (08:56→21:00)
[2022-09-03] MEDS: SPIRONOLACTONE 25 MG TAB PO SCH (08:56)
[2022-09-03] MEDS: sulfaSALAzine 500 MG TABEC PO SCH ×4 (08:56→21:00)
[2022-09-03] MEDS: DOXYCYCLINE HYCLATE 100MG TABLET PO SCH ×2 (08:56→21:00)
[2022-09-03] MEDS ORDERED: predniSONE 20 MG TAB PO SCH (09:00)
[2022-09-03] MEDS ORDERED: ONDANSETRON 4MG 2ML VIAL IV PRN (10:00)
[2022-09-03] MEDS ORDERED: methylPREDNISolone 40MG 1ML VIAL IV ONE (13:30)
[2022-09-03 14:00] VITALS: BP 124/76
[2022-09-03] MEDS ORDERED: ZOLEDRONIC ACID 4 MG in IV 1 EA IV ONE (15:00)
[2022-09-03 20:00] VITALS: BP 114/60
[2022-09-03] MEDS: PRAVASTATIN 20 MG TAB PO SCH (21:00)
[2022-09-03] MEDS: MONTELUKAST 10 MG TAB PO SCH (21:00)
[2022-09-03] MEDS: LOSARTAN 50MG TABLET PO SCH (21:00)
[2022-09-03] MEDS: LOPERAMIDE 2 MG CAPLET PO SCH (21:30)
[2022-09-04 06:00] VITALS: BP 137/66
[2022-09-04] MEDS: metroNIDAZOLE (FLAGYL) 500MG TABLET PO SCH ×2 (06:22→16:10)
[2022-09-04] MEDS: HEPARIN SOD (PORCINE) 5000UNITS/ML 1ML VIAL/SYRINGE SC SCH ×2 (06:22→17:46)
[2022-09-04 08:46] LABS: BASO # 0.1 10^3/uL (0.0-0.2); BASO % 0.9 % (0.0-1.0); EOS # 0.1 10^3/uL (0.0-0.5); HEMATOCRIT 32.5 % (36.0-47.0); HEMOGLOBIN 9.8 g/dl (12.0-15.5); LYMPH # 2.2 10^3/uL (1.5-5.0); LYMPH % 32.5 % (24.0-44.0); MEAN CORPUSCULAR HEMOGLOBIN 30.2 pg (27.0-33.0); MEAN CORPUSCULAR HGB CONC 30.2 g/dl (32.0-36.5); MONO % 14.7 % (2.0-8.0); NEUTROPHILS # 3.4 10^3/uL (1.5-8.5); NEUTROPHILS % 50.6 % (36.0-66.0); RED BLOOD COUNT 3.25 10^6/uL (4.00-5.40); WHITE BLOOD COUNT 6.7 10^3/uL (4.0-10.0)
[2022-09-04 09:27] LABS: ALKALINE PHOSPHATASE 62 U/L (46-116); ALT/SGPT 9 U/L (7.0-40); AST/SGOT 12 U/L (<34); BILIRUBIN,TOTAL 0.4 MG/DL (0.3-1.2); BLOOD UREA NITROGEN 20 MG/DL (9-23); CALCIUM LEVEL 13.2 MG/DL (8.3-10.6); CARBON DIOXIDE LEVEL 25 MMOL/L (20-31); CHLORIDE LEVEL 114 MMOL/L (98-107); CREATININE FOR GFR 0.64 MG/DL (0.55-1.30); GLOMERULAR FILTRATION RATE > 60.0 (>32); GLUCOSE, FASTING 74 MG/DL (74-106); MAGNESIUM LEVEL 1.4 MG/DL (1.8-2.4); PLATELET COUNT, AUTOMATED 232 10^3/uL (150-450); POTASSIUM SERUM 4.3 MMOL/L (3.5-5.1); SODIUM LEVEL 145 MMOL/L (136-145); TOTAL PROTEIN 4.6 G/DL (5.7-8.2)
[2022-09-04] MEDS ORDERED: MAGNESIUM OXIDE 400MG TAB (MAG-OX) PO ONE (10:35)
[2022-09-04] MEDS ORDERED: methylPREDNISolone 40MG 1ML VIAL IV ONE (10:35)
[2022-09-04] MEDS ORDERED: MAG SULF 1GM/100ML (MAG RUN) 1 GM in IV 1 EA IV ONE (11:00)
[2022-09-04] MEDS: KCL 20MEQ in NS 1000ML 1,000 ML IV SCH (11:26)
[2022-09-04] MEDS: FAMOTIDINE 20 MG TAB PO SCH ×2 (11:53→21:00)
[2022-09-04] MEDS: sulfaSALAzine 500 MG TABEC PO SCH ×3 (11:53→21:00)
[2022-09-04] MEDS: SPIRONOLACTONE 25 MG TAB PO SCH (11:53)
[2022-09-04] MEDS: MULTIVITAMINS/MINERALS THERAP 1 TAB PO SCH (11:54)
[2022-09-04] MEDS: PINK BISMUTH SUSP 524MG/30ML ORAL SYRINGE PO SCH ×2 (11:54→21:00)
[2022-09-04] MEDS: DOXYCYCLINE HYCLATE 100MG TABLET PO SCH (11:54)
[2022-09-04 13:44] VITALS: BP 78/52
[2022-09-04] MEDS ORDERED: NS 500 ML IV STA (13:52)
[2022-09-04 14:22] VITALS: BP 82/54
[2022-09-04] MEDS: NS 1,000 ML IV SCH (15:57)
[2022-09-04 17:55] VITALS: BP 90/58
[2022-09-04] MEDS ORDERED: CALCITONIN SALMON (MIACALCIN) 400INTERNATIONAL UNITS/2ML VIAL SQ SCH (18:00)
[2022-09-04] MEDS: PRAVASTATIN 20 MG TAB PO SCH (21:00)
[2022-09-04] MEDS: LOPERAMIDE 2 MG CAPLET PO SCH (21:00)
[2022-09-04] MEDS: MONTELUKAST 10 MG TAB PO SCH (21:00)
[2022-09-04] MEDS: LOSARTAN 50MG TABLET PO SCH (21:00)
[2022-09-04 21:27] VITALS: BP 98/60
[2022-09-04] MEDS: DOXYCYCLINE HYCLATE 100 MG in D5W MINI-BAG PLUS 100 ML IV SCH (21:34)
[2022-09-04] MEDS: LATANOPROST 0.005% OPHTH SOLN 2.5 ML OU SCH (22:12)
[2022-09-04] MEDS: metroNIDAZOLE 500 MG in IV 1 EA IV SCH (22:49)
[2022-09-04 23:57] VITALS: BP 118/62
[2022-09-05] MEDS: CALCITONIN SALMON (MIACALCIN) 400INTERNATIONAL UNITS/2ML VIAL SQ SCH ×3 (00:22→17:05)
[2022-09-05] MEDS: NS 1,000 ML IV SCH ×2 (01:03→09:41)
[2022-09-05 05:49] LABS: BASO # 0.1 10^3/uL (0.0-0.2); BASO % 1.1 % (0.0-1.0); EOS # 0.2 10^3/uL (0.0-0.5); EOS % 2.8 % (0.0-3.0); HEMATOCRIT 30.7 % (36.0-47.0); HEMOGLOBIN 9.5 g/dl (12.0-15.5); LYMPH # 2.2 10^3/uL (1.5-5.0); LYMPH % 34.4 % (24.0-44.0); MEAN CORPUSCULAR HEMOGLOBIN 30.4 pg (27.0-33.0); MEAN CORPUSCULAR HGB CONC 30.9 g/dl (32.0-36.5); MEAN CORPUSCULAR VOLUME 98.1 fl (80.0-96.0); MONO % 14.8 % (2.0-8.0); NEUTROPHILS % 46.3 % (36.0-66.0); PLATELET COUNT, AUTOMATED 199 10^3/uL (150-450); RED BLOOD COUNT 3.13 10^6/uL (4.00-5.40); WHITE BLOOD COUNT 6.4 10^3/uL (4.0-10.0)
[2022-09-05] MEDS: HEPARIN SOD (PORCINE) 5000UNITS/ML 1ML VIAL/SYRINGE SC SCH ×2 (06:03→17:05)
[2022-09-05] MEDS: metroNIDAZOLE 500 MG in IV 1 EA IV SCH ×3 (06:04→22:40)
[2022-09-05 06:13] VITALS: BP 106/60
[2022-09-05 06:13] LABS: ALKALINE PHOSPHATASE 55 U/L (46-116); ALT/SGPT 13 U/L (7.0-40); AST/SGOT 25 U/L (<34); BILIRUBIN,TOTAL 0.4 MG/DL (0.3-1.2); BLOOD UREA NITROGEN 15 MG/DL (9-23); CALCIUM LEVEL 11.7 MG/DL (8.3-10.6); CARBON DIOXIDE LEVEL 25 MMOL/L (20-31); CHLORIDE LEVEL 117 MMOL/L (98-107); CREATININE FOR GFR 0.57 MG/DL (0.55-1.30); GLOMERULAR FILTRATION RATE > 60.0 (>32); GLUCOSE, FASTING 88 MG/DL (74-106); MAGNESIUM LEVEL 1.4 MG/DL (1.8-2.4); SODIUM LEVEL 149 MMOL/L (136-145); TOTAL PROTEIN 4.4 G/DL (5.7-8.2)
[2022-09-05] MEDS ORDERED: MAG SULF 1GM/100ML (MAG RUN) 1 GM in IV 1 EA IV ONE (08:00)
[2022-09-05 08:05] LABS: PHOSPHORUS LEVEL 0.8 MG/DL (2.4-5.1)
[2022-09-05] MEDS: SPIRONOLACTONE 25 MG TAB PO SCH (09:00)
[2022-09-05] MEDS: sulfaSALAzine 500 MG TABEC PO SCH ×3 (09:00→21:00)
[2022-09-05] MEDS: PINK BISMUTH SUSP 524MG/30ML ORAL SYRINGE PO SCH (09:00)
[2022-09-05] MEDS ORDERED: methylPREDNISolone 40MG 1ML VIAL IV ONE ×2 (09:00→11:10)
[2022-09-05] MEDS: MULTIVITAMINS/MINERALS THERAP 1 TAB PO SCH (09:00)
[2022-09-05] MEDS: FAMOTIDINE 20 MG TAB PO SCH ×2 (09:00→21:00)
[2022-09-05] MEDS: DOXYCYCLINE HYCLATE 100 MG in D5W MINI-BAG PLUS 100 ML IV SCH ×2 (09:41→21:06)
[2022-09-05] MEDS ORDERED: ACETAMINOPHEN 650MG SUPP PR PRN (11:05)
[2022-09-05] MEDS ORDERED: PINK BISMUTH SUSP 524MG/30ML ORAL SYRINGE PO PRN (11:50)
[2022-09-05] MEDS ORDERED: SODIUM CHLORIDE 0.9% 1000ML IV ONE (12:15)
[2022-09-05] MEDS ORDERED: FUROSEMIDE 40MG/4ML VIAL IV ONE (12:30)
[2022-09-05] MEDS: NS 0.45% 1,000 ML IV SCH (13:31)
[2022-09-05 14:00] VITALS: BP 110/72
[2022-09-05] MEDS ORDERED: LIDOCAINE 4% CREAM 5GM (LMX4) TOP PRN (20:40)
[2022-09-05 21:00] VITALS: BP 121/79
[2022-09-05] MEDS: PRAVASTATIN 20 MG TAB PO SCH (21:00)
[2022-09-05] MEDS: LOPERAMIDE 2 MG CAPLET PO SCH (21:00)
[2022-09-05] MEDS: LATANOPROST 0.005% OPHTH SOLN 2.5 ML OU SCH (21:00)
[2022-09-05] MEDS: MONTELUKAST 10 MG TAB PO SCH (21:00)
[2022-09-06] MEDS: CALCITONIN SALMON (MIACALCIN) 400INTERNATIONAL UNITS/2ML VIAL SQ SCH ×3 (00:25→15:17)
[2022-09-06] MEDS: NS 0.45% 1,000 ML IV SCH ×2 (03:25→20:43)
[2022-09-06] MEDS: HEPARIN SOD (PORCINE) 5000UNITS/ML 1ML VIAL/SYRINGE SC SCH ×2 (05:13→17:45)
[2022-09-06] MEDS: metroNIDAZOLE 500 MG in IV 1 EA IV SCH ×3 (05:13→22:30)
[2022-09-06 06:00] VITALS: BP 118/78
[2022-09-06 06:29] LABS: BASO # 0.1 10^3/uL (0.0-0.2); BASO % 0.7 % (0.0-1.0); EOS # 0.2 10^3/uL (0.0-0.5); EOS % 2.9 % (0.0-3.0); HEMATOCRIT 29.4 % (36.0-47.0); LYMPH % 43.2 % (24.0-44.0); MEAN CORPUSCULAR HEMOGLOBIN 29.8 pg (27.0-33.0); MEAN CORPUSCULAR HGB CONC 30.6 g/dl (32.0-36.5); MEAN CORPUSCULAR VOLUME 97.4 fl (80.0-96.0); MONO # 0.8 10^3/uL (0.0-0.8); MONO % 11.4 % (2.0-8.0); NEUTROPHILS # 2.9 10^3/uL (1.5-8.5); NEUTROPHILS % 40.9 % (36.0-66.0); PLATELET COUNT, AUTOMATED 200 10^3/uL (150-450); RED BLOOD COUNT 3.02 10^6/uL (4.00-5.40)
[2022-09-06 06:59] LABS: ALBUMIN 1.9 G/DL (3.2-5.2); ALKALINE PHOSPHATASE 50 U/L (46-116); ALT/SGPT 9 U/L (7.0-40); AST/SGOT 19 U/L (<34); BILIRUBIN,TOTAL 0.4 MG/DL (0.3-1.2); BLOOD UREA NITROGEN 15 MG/DL (9-23); CALCIUM LEVEL 10.2 MG/DL (8.3-10.6); CARBON DIOXIDE LEVEL 25 MMOL/L (20-31); CHLORIDE LEVEL 116 MMOL/L (98-107); CREATININE FOR GFR 0.55 MG/DL (0.55-1.30); GLOMERULAR FILTRATION RATE > 60.0 (>32); GLUCOSE, FASTING 102 MG/DL (74-106); MAGNESIUM LEVEL 1.2 MG/DL (1.8-2.4); POTASSIUM SERUM 3.5 MMOL/L (3.5-5.1); SODIUM LEVEL 145 MMOL/L (136-145); TOTAL PROTEIN 4.2 G/DL (5.7-8.2)
[2022-09-06 07:14] LABS: HEPATITIS B SURFACE ANTIGEN NEGATIVE (NEGATIVE)
[2022-09-06] MEDS: MULTIVITAMINS/MINERALS THERAP 1 TAB PO SCH (09:00)
[2022-09-06] MEDS: SPIRONOLACTONE 25 MG TAB PO SCH (09:00)
[2022-09-06] MEDS ORDERED: methylPREDNISolone 40MG 1ML VIAL IV ONE (09:00)
[2022-09-06] MEDS: sulfaSALAzine 500 MG TABEC PO SCH ×3 (09:00→20:43)
[2022-09-06] MEDS: FAMOTIDINE 20 MG TAB PO SCH ×2 (09:00→20:43)
[2022-09-06] MEDS: MAG SULF 1GM/100ML (MAG RUN) 1 GM in IV 1 EA IV SCH ×2 (09:03→10:41)
[2022-09-06] MEDS: DOXYCYCLINE HYCLATE 100 MG in D5W MINI-BAG PLUS 100 ML IV SCH ×2 (12:10→20:43)
[2022-09-06 14:00] VITALS: BP 110/60
[2022-09-06] MEDS: LOPERAMIDE 2 MG CAPLET PO SCH (20:43)
[2022-09-06] MEDS: MONTELUKAST 10 MG TAB PO SCH (20:43)
[2022-09-06] MEDS: LATANOPROST 0.005% OPHTH SOLN 2.5 ML OU SCH (20:44)
[2022-09-06] MEDS: PRAVASTATIN 20 MG TAB PO SCH (20:44)
[2022-09-06 20:50] VITALS: BP 118/65
[2022-09-07 06:00] VITALS: BP 117/64
[2022-09-07] MEDS: metroNIDAZOLE 500 MG in IV 1 EA IV SCH (06:02)
[2022-09-07] MEDS: HEPARIN SOD (PORCINE) 5000UNITS/ML 1ML VIAL/SYRINGE SC SCH ×2 (06:02→17:23)
[2022-09-07 06:25] LABS: BASO % 0.6 % (0.0-1.0); EOS # 0.2 10^3/uL (0.0-0.5); EOS % 3.3 % (0.0-3.0); HEMATOCRIT 28.2 % (36.0-47.0); HEMOGLOBIN 8.9 g/dl (12.0-15.5); LYMPH # 2.9 10^3/uL (1.5-5.0); LYMPH % 46.3 % (24.0-44.0); MEAN CORPUSCULAR HEMOGLOBIN 30.7 pg (27.0-33.0); MEAN CORPUSCULAR HGB CONC 31.6 g/dl (32.0-36.5); MEAN CORPUSCULAR VOLUME 97.2 fl (80.0-96.0); MONO # 0.7 10^3/uL (0.0-0.8); MONO % 11.1 % (2.0-8.0); NEUTROPHILS # 2.4 10^3/uL (1.5-8.5); NEUTROPHILS % 37.6 % (36.0-66.0); PLATELET COUNT, AUTOMATED 188 10^3/uL (150-450); WHITE BLOOD COUNT 6.3 10^3/uL (4.0-10.0)
[2022-09-07 06:54] LABS: ALBUMIN 1.8 G/DL (3.2-5.2); ALKALINE PHOSPHATASE 46 U/L (46-116); ALT/SGPT < 9 U/L (7.0-40); AST/SGOT 17 U/L (<34); BILIRUBIN,TOTAL 0.3 MG/DL (0.3-1.2); BLOOD UREA NITROGEN 13 MG/DL (9-23); CALCIUM LEVEL 8.8 MG/DL (8.3-10.6); CARBON DIOXIDE LEVEL 23 MMOL/L (20-31); CHLORIDE LEVEL 115 MMOL/L (98-107); CREATININE FOR GFR 0.51 MG/DL (0.55-1.30); GLOMERULAR FILTRATION RATE > 60.0 (>32); GLUCOSE, FASTING 96 MG/DL (74-106); MAGNESIUM LEVEL 1.2 MG/DL (1.8-2.4); POTASSIUM SERUM 3.4 MMOL/L (3.5-5.1); SODIUM LEVEL 145 MMOL/L (136-145)
[2022-09-07] MEDS: NS 0.45% 1,000 ML IV SCH (07:24)
[2022-09-07] MEDS: sulfaSALAzine 500 MG TABEC PO SCH ×3 (09:00→22:12)
[2022-09-07] MEDS: MULTIVITAMINS/MINERALS THERAP 1 TAB PO SCH (09:00)
[2022-09-07] MEDS: FAMOTIDINE 20 MG TAB PO SCH ×2 (09:05→22:12)
[2022-09-07] MEDS: SPIRONOLACTONE 25 MG TAB PO SCH (09:05)
[2022-09-07] MEDS: MAG SULF 1GM/100ML (MAG RUN) 1 GM in IV 1 EA IV SCH ×2 (09:12→10:18)
[2022-09-07] MEDS ORDERED: methylPREDNISolone 40MG 1ML VIAL IV ONE (10:00)
[2022-09-07] MEDS: DOXYCYCLINE HYCLATE 100 MG in D5W MINI-BAG PLUS 100 ML IV SCH (10:13)
[2022-09-07] MEDS: KCL 10MEQ/100ML SWI (KRUN) 10 MEQ in IV 1 EA IV SCH ×2 (11:31→13:49)
[2022-09-07 14:00] VITALS: BP 132/54
[2022-09-07 20:43] VITALS: BP 116/68
[2022-09-07] MEDS: LOPERAMIDE 2 MG CAPLET PO SCH (22:12)
[2022-09-07] MEDS: PRAVASTATIN 20 MG TAB PO SCH (22:12)
[2022-09-07] MEDS: LATANOPROST 0.005% OPHTH SOLN 2.5 ML OU SCH (22:12)
[2022-09-07] MEDS: MONTELUKAST 10 MG TAB PO SCH (22:12)
[2022-09-08] MEDS: HEPARIN SOD (PORCINE) 5000UNITS/ML 1ML VIAL/SYRINGE SC SCH ×2 (05:20→17:58)
[2022-09-08 06:00] VITALS: BP 115/68
[2022-09-08 06:04] LABS: BASO # 0.1 10^3/uL (0.0-0.2); BASO % 0.7 % (0.0-1.0); EOS # 0.2 10^3/uL (0.0-0.5); EOS % 2.2 % (0.0-3.0); HEMATOCRIT 30.9 % (36.0-47.0); HEMOGLOBIN 9.8 g/dl (12.0-15.5); LYMPH # 3.4 10^3/uL (1.5-5.0); LYMPH % 43.8 % (24.0-44.0); MEAN CORPUSCULAR HEMOGLOBIN 30.6 pg (27.0-33.0); MEAN CORPUSCULAR HGB CONC 31.7 g/dl (32.0-36.5); MEAN CORPUSCULAR VOLUME 96.6 fl (80.0-96.0); MONO # 0.9 10^3/uL (0.0-0.8); MONO % 11.6 % (2.0-8.0); NEUTROPHILS # 3.1 10^3/uL (1.5-8.5); NEUTROPHILS % 40.3 % (36.0-66.0); PLATELET COUNT, AUTOMATED 226 10^3/uL (150-450); WHITE BLOOD COUNT 7.7 10^3/uL (4.0-10.0)
[2022-09-08 06:38] LABS: ALKALINE PHOSPHATASE 53 U/L (46-116); ALT/SGPT 10 U/L (7.0-40); AST/SGOT 18 U/L (<34); BILIRUBIN,TOTAL 0.4 MG/DL (0.3-1.2); BLOOD UREA NITROGEN 16 MG/DL (9-23); CALCIUM LEVEL 8.7 MG/DL (8.3-10.6); CARBON DIOXIDE LEVEL 25 MMOL/L (20-31); CHLORIDE LEVEL 113 MMOL/L (98-107); CREATININE FOR GFR 0.59 MG/DL (0.55-1.30); GLOMERULAR FILTRATION RATE > 60.0 (>32); GLUCOSE, FASTING 103 MG/DL (74-106); MAGNESIUM LEVEL 1.5 MG/DL (1.8-2.4); POTASSIUM SERUM 3.5 MMOL/L (3.5-5.1); SODIUM LEVEL 140 MMOL/L (136-145); TOTAL PROTEIN 4.3 G/DL (5.7-8.2)
[2022-09-08] MEDS ORDERED: methylPREDNISolone 40MG 1ML VIAL IV ONE (07:30)
[2022-09-08] MEDS ORDERED: MAG SULF 1GM/100ML (MAG RUN) 1 GM in IV 1 EA IV ONE (08:00)
[2022-09-08] MEDS: MULTIVITAMINS/MINERALS THERAP 1 TAB PO SCH (08:54)
[2022-09-08] MEDS: sulfaSALAzine 500 MG TABEC PO SCH ×3 (08:54→21:33)
[2022-09-08] MEDS: FAMOTIDINE 20 MG TAB PO SCH ×2 (08:54→21:33)
[2022-09-08] MEDS: SPIRONOLACTONE 25 MG TAB PO SCH (08:54)
[2022-09-08 14:00] VITALS: BP 111/61
[2022-09-08 19:30] VITALS: BP 130/65
[2022-09-08] MEDS: MONTELUKAST 10 MG TAB PO SCH (21:33)
[2022-09-08] MEDS: LOPERAMIDE 2 MG CAPLET PO SCH (21:33)
[2022-09-08] MEDS: LATANOPROST 0.005% OPHTH SOLN 2.5 ML OU SCH (21:34)
[2022-09-08] MEDS: PRAVASTATIN 20 MG TAB PO SCH (21:34)
[2022-09-09 04:50] VITALS: BP 122/73
[2022-09-09] MEDS: HEPARIN SOD (PORCINE) 5000UNITS/ML 1ML VIAL/SYRINGE SC SCH ×2 (05:49→17:22)
[2022-09-09 06:49] LABS: BASO # 0.1 10^3/uL (0.0-0.2); BASO % 0.6 % (0.0-1.0); EOS # 0.1 10^3/uL (0.0-0.5); EOS % 1.6 % (0.0-3.0); HEMOGLOBIN 9.8 g/dl (12.0-15.5); LYMPH # 4.3 10^3/uL (1.5-5.0); LYMPH % 48.2 % (24.0-44.0); MEAN CORPUSCULAR HEMOGLOBIN 30.5 pg (27.0-33.0); MEAN CORPUSCULAR HGB CONC 31.6 g/dl (32.0-36.5); MEAN CORPUSCULAR VOLUME 96.6 fl (80.0-96.0); MONO % 10.6 % (2.0-8.0); NEUTROPHILS # 3.4 10^3/uL (1.5-8.5); NEUTROPHILS % 37.4 % (36.0-66.0); PLATELET COUNT, AUTOMATED 257 10^3/uL (150-450); RED BLOOD COUNT 3.21 10^6/uL (4.00-5.40)
[2022-09-09 07:08] LABS: ALKALINE PHOSPHATASE 54 U/L (46-116); ALT/SGPT 10 U/L (7.0-40); AST/SGOT 21 U/L (<34); BILIRUBIN,TOTAL 0.3 MG/DL (0.3-1.2); BLOOD UREA NITROGEN 15 MG/DL (9-23); CALCIUM LEVEL 8.3 MG/DL (8.3-10.6); CARBON DIOXIDE LEVEL 23 MMOL/L (20-31); CHLORIDE LEVEL 112 MMOL/L (98-107); CREATININE FOR GFR 0.67 MG/DL (0.55-1.30); GLOMERULAR FILTRATION RATE > 60.0 (>32); GLUCOSE, FASTING 117 MG/DL (74-106); MAGNESIUM LEVEL 1.5 MG/DL (1.8-2.4); POTASSIUM SERUM 3.8 MMOL/L (3.5-5.1); SODIUM LEVEL 139 MMOL/L (136-145); TOTAL PROTEIN 4.4 G/DL (5.7-8.2)
[2022-09-09] MEDS ORDERED: MAG SULF 1GM/100ML (MAG RUN) 1 GM in IV 1 EA IV ONE (08:00)
[2022-09-09] MEDS: MULTIVITAMINS/MINERALS THERAP 1 TAB PO SCH (08:21)
[2022-09-09] MEDS: SPIRONOLACTONE 25 MG TAB PO SCH (08:21)
[2022-09-09] MEDS: FAMOTIDINE 20 MG TAB PO SCH ×2 (08:21→20:15)
[2022-09-09] MEDS: sulfaSALAzine 500 MG TABEC PO SCH ×3 (08:21→20:15)
[2022-09-09] MEDS ORDERED: methylPREDNISolone 40MG 1ML VIAL IV ONE (09:25)
[2022-09-09 14:00] VITALS: BP 113/82
[2022-09-09] MEDS: PRAVASTATIN 20 MG TAB PO SCH (20:15)
[2022-09-09] MEDS: LOPERAMIDE 2 MG CAPLET PO SCH (20:15)
[2022-09-09] MEDS: MONTELUKAST 10 MG TAB PO SCH (20:15)
[2022-09-09] MEDS: LATANOPROST 0.005% OPHTH SOLN 2.5 ML OU SCH (20:18)
[2022-09-09 21:40] VITALS: BP 119/75
[2022-09-10 05:00] VITALS: BP 134/72
[2022-09-10] MEDS: HEPARIN SOD (PORCINE) 5000UNITS/ML 1ML VIAL/SYRINGE SC SCH (06:00)
[2022-09-10 07:05] LABS: BASO % 0.5 % (0.0-1.0); EOS # 0.2 10^3/uL (0.0-0.5); EOS % 1.9 % (0.0-3.0); HEMOGLOBIN 9.4 g/dl (12.0-15.5); MEAN CORPUSCULAR HEMOGLOBIN 30.9 pg (27.0-33.0); MEAN CORPUSCULAR HGB CONC 32.4 g/dl (32.0-36.5); MEAN CORPUSCULAR VOLUME 95.4 fl (80.0-96.0); MONO # 0.9 10^3/uL (0.0-0.8); MONO % 10.3 % (2.0-8.0); NEUTROPHILS # 3.2 10^3/uL (1.5-8.5); NEUTROPHILS % 37.9 % (36.0-66.0); PLATELET COUNT, AUTOMATED 271 10^3/uL (150-450); RED BLOOD COUNT 3.04 10^6/uL (4.00-5.40); WHITE BLOOD COUNT 8.4 10^3/uL (4.0-10.0)
[2022-09-10 07:25] LABS: ALBUMIN 2.1 G/DL (3.2-5.2); ALKALINE PHOSPHATASE 62 U/L (46-116); ALT/SGPT 10 U/L (7.0-40); AST/SGOT 20 U/L (<34); BILIRUBIN,TOTAL 0.4 MG/DL (0.3-1.2); BLOOD UREA NITROGEN 15 MG/DL (9-23); CALCIUM LEVEL 8.2 MG/DL (8.3-10.6); CARBON DIOXIDE LEVEL 22 MMOL/L (20-31); CHLORIDE LEVEL 109 MMOL/L (98-107); CREATININE FOR GFR 0.78 MG/DL (0.55-1.30); GLOMERULAR FILTRATION RATE > 60.0 (>32); GLUCOSE, FASTING 113 MG/DL (74-106); MAGNESIUM LEVEL 1.5 MG/DL (1.8-2.4); POTASSIUM SERUM 3.6 MMOL/L (3.5-5.1); SODIUM LEVEL 139 MMOL/L (136-145); TOTAL PROTEIN 4.5 G/DL (5.7-8.2)
[2022-09-10] MEDS ORDERED: MAGNESIUM OXIDE 400MG TAB (MAG-OX) PO ONE (07:40)
[2022-09-10] MEDS ORDERED: methylPREDNISolone 40MG 1ML VIAL IV ONE ×2 (07:40)
[2022-09-10] MEDS: MULTIVITAMINS/MINERALS THERAP 1 TAB PO SCH (08:41)
[2022-09-10] MEDS: sulfaSALAzine 500 MG TABEC PO SCH (08:42)
[2022-09-10] MEDS: SPIRONOLACTONE 25 MG TAB PO SCH (08:43)
[2022-09-10] MEDS: FAMOTIDINE 20 MG TAB PO SCH (08:44)
[2022-09-10] MEDS ORDERED: PRED20TA PO (09:18)
[2022-09-10] MEDS ORDERED: PRED10PA PO (09:26)
== END 2022-09-10 12:35 | DRG 643 ==
LOC: M ED 16:07 → EDBD 16:07 → M ED INP 22:54 → M MS5PR 09-02 01:13 → M MSPAV 09-02 14:20
PROVIDERS: ADMIT Internal Medicine; ATTEND Family Medicine
PROC: B246ZZZ Ultrasonography of Right and Left Heart (ICD-10-PCS; principal; 2022-09-04)
DX: E21.0 Primary hyperparathyroidism (principal); G93.41 Metabolic encephalopathy; K50.90 Crohn's disease, unspecified, without complications; I50.32 Chronic diastolic (congestive) heart failure; E87.0 Hyperosmolality and hypernatremia; Z66 Do not resuscitate; K60.2 Anal fissure, unspecified; I11.0 Hypertensive heart disease with heart failure; E78.00 Pure hypercholesterolemia, unspecified; I35.0 Nonrheumatic aortic (valve) stenosis; E87.6 Hypokalemia; J45.909 Unspecified asthma, uncomplicated; K44.9 Diaphragmatic hernia without obstruction or gangrene; Z79.899 Other long term (current) drug therapy; Z88.0 Allergy status to penicillin; Z88.8 Allergy status to other drugs, medicaments and biological substances

== ENCOUNTER → 2022-09-01 | Outpatient (REF) | payer MEDICARE, MEDICAID ==
[~2022-09-01] MED LIST changes: +ACET-897 PO; +ACET-907 PO; +AIRD1INH2 INH; +ANTI2TAB16 PO; +BISA10SU PR; +DICL20GE TOP; +FAMO20TA PO; +FLEEENE12 PR; +MILKSUS3 PO; +OXYC-517 PO; +PROC5TAB57 PO; +RISATAB3 PO; +SPIR-10 PO; +SULF500T2 PO; +XALA0.007 OU
[2022-09-01 16:13] LABS: HEMATOCRIT 37.6 % (36.0-47.0); HEMOGLOBIN 11.9 g/dl (12.0-15.5); MEAN CORPUSCULAR HEMOGLOBIN 29.8 pg (27.0-33.0); MEAN CORPUSCULAR HGB CONC 31.6 g/dl (32.0-36.5); MEAN CORPUSCULAR VOLUME 94.2 fl (80.0-96.0); PLATELET COUNT, AUTOMATED 271 10^3/uL (150-450); RED BLOOD COUNT 3.99 10^6/uL (4.00-5.40); WHITE BLOOD COUNT 9.2 10^3/uL (4.0-10.0)
== END ==
PROVIDERS: ATTEND Physician Assistant
DX: R53.83 Other fatigue (principal)

== ENCOUNTER → 2022-09-15 | Outpatient (REF) | payer MEDICARE, MEDICAID ==
[~2022-09-15] MED LIST changes: +ACET-897 PO; +ACET-907 PO; +AIRD1INH2 INH; +ANTI2TAB16 PO; +BISA10SU PR; +DICL20GE TOP; +FAMO20TA PO; +FLEEENE12 PR; +MILKSUS3 PO; +OXYC-517 PO; +PRED10PA PO; +PRED20TA PO; +PROC5TAB57 PO; +RISATAB3 PO; +SPIR-10 PO; +SULF500T2 PO; +XALA0.007 OU
== END ==
PROVIDERS: ATTEND Family Medicine
DX: R06.02 Shortness of breath (principal); K44.9 Diaphragmatic hernia without obstruction or gangrene; I77.810 Thoracic aortic ectasia

== ENCOUNTER → 2022-09-15 | Outpatient (REF) ==
[2022-09-15 09:23] LABS: HEMATOCRIT 29.4 % (36.0-47.0); HEMOGLOBIN 9.4 g/dl (12.0-15.5); MEAN CORPUSCULAR HEMOGLOBIN 31.4 pg (27.0-33.0); MEAN CORPUSCULAR VOLUME 98.3 fl (80.0-96.0); PLATELET COUNT, AUTOMATED 269 10^3/uL (150-450); RED BLOOD COUNT 2.99 10^6/uL (4.00-5.40); WHITE BLOOD COUNT 7.4 10^3/uL (4.0-10.0)
[2022-09-15 09:43] LABS: CALCIUM LEVEL 7.8 MG/DL (8.3-10.6); CREATININE FOR GFR 1.17 MG/DL (0.55-1.30); GLOMERULAR FILTRATION RATE 46.6 (>32); MAGNESIUM LEVEL 1.7 MG/DL (1.8-2.4); POTASSIUM SERUM 3.4 MMOL/L (3.5-5.1)
== END ==
PROVIDERS: ATTEND Physician Assistant
DX: K50.90 Crohn's disease, unspecified, without complications (principal)

== ENCOUNTER → 2022-09-17 | Outpatient (REF) ==
[2022-09-17 09:54] LABS: BLOOD UREA NITROGEN 16 MG/DL (9-23); CALCIUM LEVEL 7.8 MG/DL (8.3-10.6); CARBON DIOXIDE LEVEL 22 MMOL/L (20-31); CHLORIDE LEVEL 108 MMOL/L (98-107); CREATININE FOR GFR 0.92 MG/DL (0.55-1.30); GLOMERULAR FILTRATION RATE > 60.0 (>32); GLUCOSE, FASTING 132 MG/DL (74-106); POTASSIUM SERUM 3.3 MMOL/L (3.5-5.1); SODIUM LEVEL 138 MMOL/L (136-145)
== END ==
PROVIDERS: ATTEND Physician Assistant
DX: I50.9 Heart failure, unspecified (principal)

== ENCOUNTER → 2022-09-22 | Outpatient (REF) ==
[2022-09-22 11:52] LABS: HEMATOCRIT 29.2 % (36.0-47.0); HEMOGLOBIN 9.3 g/dl (12.0-15.5); MEAN CORPUSCULAR HEMOGLOBIN 32.4 pg (27.0-33.0); MEAN CORPUSCULAR HGB CONC 31.8 g/dl (32.0-36.5); MEAN CORPUSCULAR VOLUME 101.7 fl (80.0-96.0); PLATELET COUNT, AUTOMATED 267 10^3/uL (150-450); RED BLOOD COUNT 2.87 10^6/uL (4.00-5.40)
[2022-09-22 12:11] LABS: BLOOD UREA NITROGEN 12 MG/DL (9-23); CALCIUM LEVEL 8.1 MG/DL (8.3-10.6); CARBON DIOXIDE LEVEL 26 MMOL/L (20-31); CHLORIDE LEVEL 109 MMOL/L (98-107); CREATININE FOR GFR 0.73 MG/DL (0.55-1.30); GLOMERULAR FILTRATION RATE > 60.0 (>32); GLUCOSE, FASTING 132 MG/DL (74-106); MAGNESIUM LEVEL 1.6 MG/DL (1.8-2.4); POTASSIUM SERUM 3.5 MMOL/L (3.5-5.1); SODIUM LEVEL 141 MMOL/L (136-145)
== END ==
PROVIDERS: ATTEND Physician Assistant
DX: K50.90 Crohn's disease, unspecified, without complications (principal)

== ENCOUNTER → 2022-09-24 | Outpatient (REF) ==
[2022-09-24 10:34] LABS: HEMATOCRIT 30.7 % (36.0-47.0); HEMOGLOBIN 9.7 g/dl (12.0-15.5); MEAN CORPUSCULAR HEMOGLOBIN 32.6 pg (27.0-33.0); MEAN CORPUSCULAR HGB CONC 31.6 g/dl (32.0-36.5); PLATELET COUNT, AUTOMATED 247 10^3/uL (150-450); RED BLOOD COUNT 2.98 10^6/uL (4.00-5.40); WHITE BLOOD COUNT 8.1 10^3/uL (4.0-10.0)
[2022-09-24 11:10] LABS: ALBUMIN 2.3 G/DL (3.2-5.2); BLOOD UREA NITROGEN 11 MG/DL (9-23); CALCIUM LEVEL 8.1 MG/DL (8.3-10.6); CARBON DIOXIDE LEVEL 25 MMOL/L (20-31); CHLORIDE LEVEL 108 MMOL/L (98-107); CREATININE FOR GFR 0.67 MG/DL (0.55-1.30); GLOMERULAR FILTRATION RATE > 60.0 (>32); GLUCOSE, FASTING 138 MG/DL (74-106); MAGNESIUM LEVEL 1.7 MG/DL (1.8-2.4); POTASSIUM SERUM 3.4 MMOL/L (3.5-5.1); SODIUM LEVEL 139 MMOL/L (136-145)
== END ==
PROVIDERS: ATTEND Family Medicine
DX: K58.9 Irritable bowel syndrome, unspecified (principal)

== ENCOUNTER → 2022-10-01 | Outpatient (REF) ==
[2022-10-01 11:02] LABS: HEMATOCRIT 30.5 % (36.0-47.0); HEMOGLOBIN 9.3 g/dl (12.0-15.5); MEAN CORPUSCULAR HGB CONC 30.5 g/dl (32.0-36.5); MEAN CORPUSCULAR VOLUME 108.2 fl (80.0-96.0); PLATELET COUNT, AUTOMATED 240 10^3/uL (150-450); RED BLOOD COUNT 2.82 10^6/uL (4.00-5.40); WHITE BLOOD COUNT 6.8 10^3/uL (4.0-10.0)
[2022-10-01 11:35] LABS: BLOOD UREA NITROGEN 10 MG/DL (9-23); CALCIUM LEVEL 7.6 MG/DL (8.3-10.6); CARBON DIOXIDE LEVEL 26 MMOL/L (20-31); CHLORIDE LEVEL 105 MMOL/L (98-107); CREATININE FOR GFR 0.59 MG/DL (0.55-1.30); GLOMERULAR FILTRATION RATE > 60.0 (>32); GLUCOSE, FASTING 164 MG/DL (74-106); MAGNESIUM LEVEL 1.9 MG/DL (1.8-2.4); PTH INTACT 145.3 PG/ML (18.5-88.0); SODIUM LEVEL 136 MMOL/L (136-145); THYROID STIMULATING HORMONE 6.134 uIU/ML (0.55-4.78)
[2022-10-01 11:36] LABS: TOTAL 25(OH) VITAMIN D 36.8 NG/ML (20.0-100.0); VITAMIN B12 LEVEL 231 PG/ML (211-911)
[2022-10-01 15:38] LABS: FREE T3 2.5 PG/ML (2.3-4.2); THYROXINE (T4) 9.4 UG/DL (4.5-10.9)
== END ==
PROVIDERS: ATTEND Physician Assistant
DX: K50.90 Crohn's disease, unspecified, without complications (principal)

== ENCOUNTER → 2022-10-02 | Outpatient (REF) | PROVIDERS: ATTEND Physician Assistant | DX: R19.5 Other fecal abnormalities (principal) ==

== ENCOUNTER → 2022-10-08 | Outpatient (REF) | payer MEDICARE, MEDICAID ==
[2022-10-08 11:26] LABS: HEMATOCRIT 30.6 % (36.0-47.0); HEMOGLOBIN 9.6 g/dl (12.0-15.5); MEAN CORPUSCULAR HEMOGLOBIN 34.5 pg (27.0-33.0); MEAN CORPUSCULAR HGB CONC 31.4 g/dl (32.0-36.5); MEAN CORPUSCULAR VOLUME 110.1 fl (80.0-96.0); PLATELET COUNT, AUTOMATED 291 10^3/uL (150-450); RED BLOOD COUNT 2.78 10^6/uL (4.00-5.40); WHITE BLOOD COUNT 5.9 10^3/uL (4.0-10.0)
[2022-10-08 11:49] LABS: ALBUMIN 2.3 G/DL (3.2-5.2); BLOOD UREA NITROGEN 10 MG/DL (9-23); CALCIUM LEVEL 8.2 MG/DL (8.3-10.6); CARBON DIOXIDE LEVEL 26 MMOL/L (20-31); CHLORIDE LEVEL 105 MMOL/L (98-107); CHOLESTEROL RISK RATIO 2.34 (<5); CREATININE FOR GFR 0.56 MG/DL (0.55-1.30); GLOMERULAR FILTRATION RATE > 60.0 (>32); GLUCOSE, FASTING 172 MG/DL (74-106); HDL CHOLESTEROL 70.3 MG/DL (>40); LDL CHOLESTEROL 75.7 MG/DL (<100); MAGNESIUM LEVEL 1.7 MG/DL (1.8-2.4); NON-HDL-C 94.7 MG/DL; POTASSIUM SERUM 4.2 MMOL/L (3.5-5.1); SODIUM LEVEL 135 MMOL/L (136-145)
== END ==
PROVIDERS: ATTEND Physician Assistant
DX: K50.90 Crohn's disease, unspecified, without complications (principal); Z79.899 Other long term (current) drug therapy

== ENCOUNTER → 2022-10-13 | Outpatient (REF) ==
[2022-10-13 11:16] LABS: HEMOGLOBIN 9.3 g/dl (12.0-15.5); MEAN CORPUSCULAR HEMOGLOBIN 34.4 pg (27.0-33.0); MEAN CORPUSCULAR VOLUME 111.1 fl (80.0-96.0); PLATELET COUNT, AUTOMATED 268 10^3/uL (150-450); WHITE BLOOD COUNT 5.3 10^3/uL (4.0-10.0)
[2022-10-13 11:48] LABS: ALBUMIN 2.2 G/DL (3.2-5.2); BLOOD UREA NITROGEN 10 MG/DL (9-23); CALCIUM LEVEL 8.6 MG/DL (8.3-10.6); CARBON DIOXIDE LEVEL 26 MMOL/L (20-31); CHLORIDE LEVEL 104 MMOL/L (98-107); CREATININE FOR GFR 0.62 MG/DL (0.55-1.30); GLOMERULAR FILTRATION RATE > 60.0 (>32); GLUCOSE, FASTING 145 MG/DL (74-106); MAGNESIUM LEVEL 1.8 MG/DL (1.8-2.4); SODIUM LEVEL 138 MMOL/L (136-145)
== END ==
PROVIDERS: ATTEND Physician Assistant
DX: K50.90 Crohn's disease, unspecified, without complications (principal)

== ENCOUNTER → 2022-10-20 | Outpatient (REF) | payer MEDICARE, MEDICAID ==
[2022-10-20 10:42] LABS: HEMATOCRIT 34.5 % (36.0-47.0); HEMOGLOBIN 10.6 g/dl (12.0-15.5); MEAN CORPUSCULAR HEMOGLOBIN 33.8 pg (27.0-33.0); MEAN CORPUSCULAR HGB CONC 30.7 g/dl (32.0-36.5); MEAN CORPUSCULAR VOLUME 109.9 fl (80.0-96.0); PLATELET COUNT, AUTOMATED 261 10^3/uL (150-450); RED BLOOD COUNT 3.14 10^6/uL (4.00-5.40); WHITE BLOOD COUNT 4.8 10^3/uL (4.0-10.0)
[2022-10-20 11:17] LABS: ALBUMIN 2.5 G/DL (3.2-5.2); BLOOD UREA NITROGEN 11 MG/DL (9-23); CARBON DIOXIDE LEVEL 27 MMOL/L (20-31); CHLORIDE LEVEL 105 MMOL/L (98-107); CREATININE FOR GFR 0.59 MG/DL (0.55-1.30); GLOMERULAR FILTRATION RATE > 60.0 (>32); GLUCOSE, FASTING 146 MG/DL (74-106); MAGNESIUM LEVEL 1.8 MG/DL (1.8-2.4); POTASSIUM SERUM 4.1 MMOL/L (3.5-5.1); SODIUM LEVEL 138 MMOL/L (136-145)
== END ==
PROVIDERS: ATTEND Physician Assistant
DX: K50.90 Crohn's disease, unspecified, without complications (principal)

== ENCOUNTER → 2022-10-24 | Outpatient (REF) | payer MEDICARE, MEDICAID ==
[~2022-10-24] MED LIST changes: +MAGN400T2 PO; +PERC5TAB12 PO; +QUES4POW PO; +SUCR1TAB56 PO
== END ==
PROVIDERS: ATTEND Nurse Practitioner Family
DX: Z01.818 Encounter for other preprocedural examination (principal); Z20.822 Contact with and (suspected) exposure to COVID-19

== ENCOUNTER → 2022-10-27 | Outpatient (REF) | payer MEDICARE, MEDICAID ==
[2022-10-27 08:30] LABS: HEMATOCRIT 30.8 % (36.0-47.0); HEMOGLOBIN 9.5 g/dl (12.0-15.5); MEAN CORPUSCULAR HEMOGLOBIN 33.2 pg (27.0-33.0); MEAN CORPUSCULAR HGB CONC 30.8 g/dl (32.0-36.5); MEAN CORPUSCULAR VOLUME 107.7 fl (80.0-96.0); PLATELET COUNT, AUTOMATED 288 10^3/uL (150-450); RED BLOOD COUNT 2.86 10^6/uL (4.00-5.40); WHITE BLOOD COUNT 5.4 10^3/uL (4.0-10.0)
[2022-10-27 08:56] LABS: ALBUMIN 2.1 G/DL (3.2-5.2); BLOOD UREA NITROGEN 14 MG/DL (9-23); CALCIUM LEVEL 8.7 MG/DL (8.3-10.6); CARBON DIOXIDE LEVEL 30 MMOL/L (20-31); CHLORIDE LEVEL 104 MMOL/L (98-107); CREATININE FOR GFR 0.62 MG/DL (0.55-1.30); GLOMERULAR FILTRATION RATE > 60.0 (>32); GLUCOSE, FASTING 122 MG/DL (74-106); MAGNESIUM LEVEL 1.8 MG/DL (1.8-2.4); POTASSIUM SERUM 4.2 MMOL/L (3.5-5.1); SODIUM LEVEL 138 MMOL/L (136-145)
== END ==
PROVIDERS: ATTEND Family Medicine
DX: E11.9 Type 2 diabetes mellitus without complications (principal)

== ENCOUNTER → 2022-11-03 | Outpatient (REF) | payer MEDICARE, MEDICAID | PROVIDERS: ATTEND Family Medicine | DX: E11.9 Type 2 diabetes mellitus without complications (principal); Z53.8 Procedure and treatment not carried out for other reasons ==

== ENCOUNTER → 2022-11-05 | Outpatient (REF) | payer MEDICARE, MEDICAID ==
[2022-11-05 11:33] LABS: HEMOGLOBIN 10.5 g/dl (12.0-15.5); MEAN CORPUSCULAR HEMOGLOBIN 33.1 pg (27.0-33.0); MEAN CORPUSCULAR HGB CONC 30.9 g/dl (32.0-36.5); MEAN CORPUSCULAR VOLUME 107.3 fl (80.0-96.0); PLATELET COUNT, AUTOMATED 326 10^3/uL (150-450); RED BLOOD COUNT 3.17 10^6/uL (4.00-5.40); WHITE BLOOD COUNT 5.9 10^3/uL (4.0-10.0)
[2022-11-05 12:07] LABS: ALBUMIN 2.5 G/DL (3.2-5.2); BLOOD UREA NITROGEN 17 MG/DL (9-23); CALCIUM LEVEL 8.8 MG/DL (8.3-10.6); CARBON DIOXIDE LEVEL 30 MMOL/L (20-31); CHLORIDE LEVEL 106 MMOL/L (98-107); CREATININE FOR GFR 0.66 MG/DL (0.55-1.30); GLOMERULAR FILTRATION RATE > 60.0 (>32); GLUCOSE, FASTING 125 MG/DL (74-106); MAGNESIUM LEVEL 1.9 MG/DL (1.8-2.4); POTASSIUM SERUM 3.7 MMOL/L (3.5-5.1); SODIUM LEVEL 140 MMOL/L (136-145)
== END ==
PROVIDERS: ATTEND Nurse Practitioner Family
DX: E87.5 Hyperkalemia (principal)

== ENCOUNTER → 2022-11-10 | Outpatient (REF) | payer MEDICARE, MEDICAID ==
[2022-11-10 11:38] LABS: MEAN CORPUSCULAR HEMOGLOBIN 32.4 pg (27.0-33.0); MEAN CORPUSCULAR HGB CONC 30.6 g/dl (32.0-36.5); MEAN CORPUSCULAR VOLUME 106.2 fl (80.0-96.0); PLATELET COUNT, AUTOMATED 356 10^3/uL (150-450); RED BLOOD COUNT 3.39 10^6/uL (4.00-5.40); WHITE BLOOD COUNT 5.7 10^3/uL (4.0-10.0)
[2022-11-10 12:05] LABS: ALBUMIN 2.8 G/DL (3.2-5.2); BLOOD UREA NITROGEN 15 MG/DL (9-23); CALCIUM LEVEL 9.1 MG/DL (8.3-10.6); CARBON DIOXIDE LEVEL 29 MMOL/L (20-31); CHLORIDE LEVEL 105 MMOL/L (98-107); CREATININE FOR GFR 0.72 MG/DL (0.55-1.30); GLOMERULAR FILTRATION RATE > 60.0 (>32); GLUCOSE, FASTING 154 MG/DL (74-106); MAGNESIUM LEVEL 1.8 MG/DL (1.8-2.4); POTASSIUM SERUM 4.1 MMOL/L (3.5-5.1); SODIUM LEVEL 139 MMOL/L (136-145)
[2022-11-10 12:09] LABS: THYROXINE (T4) 12.5 UG/DL (4.5-10.9)
== END ==
PROVIDERS: ATTEND Family Medicine
DX: E11.9 Type 2 diabetes mellitus without complications (principal); K58.9 Irritable bowel syndrome, unspecified

== ENCOUNTER → 2022-11-13 | Outpatient (REF) | payer MEDICARE, MEDICAID | PROVIDERS: ATTEND Nurse Practitioner Family | DX: K50.90 Crohn's disease, unspecified, without complications (principal) ==

== ENCOUNTER → 2022-11-17 | Outpatient (REF) | payer MEDICARE, MEDICAID ==
[2022-11-17 11:32] LABS: HEMATOCRIT 34.5 % (36.0-47.0); HEMOGLOBIN 10.6 g/dl (12.0-15.5); MEAN CORPUSCULAR HEMOGLOBIN 32.2 pg (27.0-33.0); MEAN CORPUSCULAR HGB CONC 30.7 g/dl (32.0-36.5); MEAN CORPUSCULAR VOLUME 104.9 fl (80.0-96.0); PLATELET COUNT, AUTOMATED 296 10^3/uL (150-450); RED BLOOD COUNT 3.29 10^6/uL (4.00-5.40); WHITE BLOOD COUNT 6.7 10^3/uL (4.0-10.0)
[2022-11-17 12:03] LABS: ALBUMIN 2.7 G/DL (3.2-5.2); BLOOD UREA NITROGEN 17 MG/DL (9-23); CARBON DIOXIDE LEVEL 31 MMOL/L (20-31); CHLORIDE LEVEL 100 MMOL/L (98-107); CREATININE FOR GFR 0.67 MG/DL (0.55-1.30); GLOMERULAR FILTRATION RATE > 60.0 (>32); GLUCOSE, FASTING 106 MG/DL (74-106); POTASSIUM SERUM 3.7 MMOL/L (3.5-5.1); SODIUM LEVEL 137 MMOL/L (136-145)
== END ==
PROVIDERS: ATTEND Family Medicine
DX: E11.9 Type 2 diabetes mellitus without complications (principal); K58.9 Irritable bowel syndrome, unspecified

== ENCOUNTER → 2022-11-18 | Outpatient (REF) | payer MEDICARE, MEDICAID ==
[2022-11-18 22:50] LABS: APPEARANCE, URINE CLEAR (CLEAR); BACTERIA, URINE AUTO 1+ (NEGATIVE); BILIRUBIN, URINE AUTO NEGATIVE (NEGATIVE); BLOOD, URINE BLOOD NEGATIVE (NEGATIVE); COLOR, URINE YELLOW (YELLOW); GLUCOSE, URINE (UA) AUTO NEGATIVE (NEGATIVE); KETONE, URINE AUTO NEGATIVE (NEGATIVE); LEUKOCYTE ESTERASE, URINE AUTO NEGATIVE (NEGATIVE); MUCUS, URINE SMALL (NEGATIVE); NITRITE, URINE AUTO NEGATIVE (NEGATIVE); PROTEIN, URINE AUTO NEGATIVE (NEGATIVE); RBC, URINE AUTO 1 /HPF (0-3); SPECIFIC GRAVITY URINE AUTO 1.008 (1.002-1.035); SQUAMOUS EPITHELIAL CELL UR AU 0 /HPF (0-6); UROBILINOGEN, URINE AUTO 0.2 mg/dL (0.0-2.0); WBC, URINE AUTO 1 /HPF (0-3)
== END ==
PROVIDERS: ATTEND Family Medicine
DX: R33.9 Retention of urine, unspecified (principal)

== ENCOUNTER → 2022-11-20 | Outpatient (REF) | payer MEDICARE, MEDICAID | PROVIDERS: ATTEND Family Medicine | DX: R33.9 Retention of urine, unspecified (principal); I80.9 Phlebitis and thrombophlebitis of unspecified site; M47.9 Spondylosis, unspecified ==

== ENCOUNTER → 2022-11-24 | Outpatient (REF) | payer MEDICARE, MEDICAID ==
[2022-11-24 08:31] LABS: HEMATOCRIT 28.4 % (36.0-47.0); HEMOGLOBIN 9.1 g/dl (12.0-15.5); MEAN CORPUSCULAR HEMOGLOBIN 32.4 pg (27.0-33.0); MEAN CORPUSCULAR VOLUME 101.1 fl (80.0-96.0); PLATELET COUNT, AUTOMATED 277 10^3/uL (150-450); RED BLOOD COUNT 2.81 10^6/uL (4.00-5.40); WHITE BLOOD COUNT 6.2 10^3/uL (4.0-10.0)
[2022-11-24 09:05] LABS: ALBUMIN 2.3 G/DL (3.2-5.2); BLOOD UREA NITROGEN 16 MG/DL (9-23); CALCIUM LEVEL 9.5 MG/DL (8.3-10.6); CARBON DIOXIDE LEVEL 31 MMOL/L (20-31); CHLORIDE LEVEL 101 MMOL/L (98-107); CREATININE FOR GFR 0.66 MG/DL (0.55-1.30); GLOMERULAR FILTRATION RATE > 60.0 (>32); GLUCOSE, FASTING 101 MG/DL (74-106); MAGNESIUM LEVEL 1.7 MG/DL (1.8-2.4); POTASSIUM SERUM 3.4 MMOL/L (3.5-5.1); SODIUM LEVEL 137 MMOL/L (136-145)
== END ==
PROVIDERS: ATTEND Family Medicine
DX: K58.9 Irritable bowel syndrome, unspecified (principal); E11.9 Type 2 diabetes mellitus without complications

== ENCOUNTER → 2022-12-01 | Outpatient (REF) | payer MEDICARE, MEDICAID ==
[2022-12-01 09:38] LABS: HEMOGLOBIN 9.6 g/dl (12.0-15.5); MEAN CORPUSCULAR HEMOGLOBIN 32.9 pg (27.0-33.0); MEAN CORPUSCULAR VOLUME 102.7 fl (80.0-96.0); PLATELET COUNT, AUTOMATED 260 10^3/uL (150-450); RED BLOOD COUNT 2.92 10^6/uL (4.00-5.40); WHITE BLOOD COUNT 7.6 10^3/uL (4.0-10.0)
[2022-12-01 10:15] LABS: ALBUMIN 2.7 G/DL (3.2-5.2); BLOOD UREA NITROGEN 17 MG/DL (9-23); CALCIUM LEVEL 10.2 MG/DL (8.3-10.6); CARBON DIOXIDE LEVEL 34 MMOL/L (20-31); CHLORIDE LEVEL 99 MMOL/L (98-107); CREATININE FOR GFR 0.73 MG/DL (0.55-1.30); GLOMERULAR FILTRATION RATE > 60.0 (>32); GLUCOSE, FASTING 96 MG/DL (74-106); MAGNESIUM LEVEL 1.8 MG/DL (1.8-2.4); POTASSIUM SERUM 3.6 MMOL/L (3.5-5.1); SODIUM LEVEL 137 MMOL/L (136-145)
== END ==
PROVIDERS: ATTEND Family Medicine
DX: E11.9 Type 2 diabetes mellitus without complications (principal)

== ENCOUNTER → 2022-12-08 | Outpatient (REF) | payer MEDICARE, MEDICAID ==
[2022-12-08 09:13] LABS: HEMATOCRIT 30.1 % (36.0-47.0); HEMOGLOBIN 9.5 g/dl (12.0-15.5); MEAN CORPUSCULAR HGB CONC 31.6 g/dl (32.0-36.5); MEAN CORPUSCULAR VOLUME 104.5 fl (80.0-96.0); PLATELET COUNT, AUTOMATED 276 10^3/uL (150-450); RED BLOOD COUNT 2.88 10^6/uL (4.00-5.40); WHITE BLOOD COUNT 11.1 10^3/uL (4.0-10.0)
[2022-12-08 09:29] LABS: ALBUMIN 2.9 G/DL (3.2-5.2); BLOOD UREA NITROGEN 18 MG/DL (9-23); CALCIUM LEVEL 10.2 MG/DL (8.3-10.6); CARBON DIOXIDE LEVEL 29 MMOL/L (20-31); CHLORIDE LEVEL 103 MMOL/L (98-107); CREATININE FOR GFR 0.67 MG/DL (0.55-1.30); GLOMERULAR FILTRATION RATE > 60.0 (>32); GLUCOSE, FASTING 144 MG/DL (74-106); MAGNESIUM LEVEL 1.9 MG/DL (1.8-2.4); POTASSIUM SERUM 4.8 MMOL/L (3.5-5.1); SODIUM LEVEL 138 MMOL/L (136-145)
== END ==
PROVIDERS: ATTEND Family Medicine
DX: E11.9 Type 2 diabetes mellitus without complications (principal)

== ENCOUNTER → 2022-12-15 | Outpatient (REF) | payer MEDICARE, MEDICAID ==
[2022-12-15 08:51] LABS: HEMATOCRIT 28.9 % (36.0-47.0); HEMOGLOBIN 9.3 g/dl (12.0-15.5); MEAN CORPUSCULAR HEMOGLOBIN 34.4 pg (27.0-33.0); MEAN CORPUSCULAR HGB CONC 32.2 g/dl (32.0-36.5); PLATELET COUNT, AUTOMATED 275 10^3/uL (150-450); WHITE BLOOD COUNT 5.6 10^3/uL (4.0-10.0)
[2022-12-15 09:25] LABS: ALBUMIN 2.7 G/DL (3.2-5.2); BLOOD UREA NITROGEN 20 MG/DL (9-23); CALCIUM LEVEL 10.2 MG/DL (8.3-10.6); CARBON DIOXIDE LEVEL 30 MMOL/L (20-31); CHLORIDE LEVEL 103 MMOL/L (98-107); CREATININE FOR GFR 0.82 MG/DL (0.55-1.30); GLOMERULAR FILTRATION RATE > 60.0 (>32); GLUCOSE, FASTING 95 MG/DL (74-106); MAGNESIUM LEVEL 1.9 MG/DL (1.8-2.4); POTASSIUM SERUM 4.2 MMOL/L (3.5-5.1); SODIUM LEVEL 136 MMOL/L (136-145)
[2022-12-15 09:27] LABS: THYROXINE (T4) 7.5 UG/DL (4.5-10.9)
== END ==
PROVIDERS: ATTEND Family Medicine
DX: E11.9 Type 2 diabetes mellitus without complications (principal)

== ENCOUNTER → 2022-12-22 | Outpatient (REF) | payer MEDICARE, MEDICAID ==
[2022-12-22 09:32] LABS: HEMATOCRIT 30.1 % (36.0-47.0); HEMOGLOBIN 9.7 g/dl (12.0-15.5); MEAN CORPUSCULAR HEMOGLOBIN 34.8 pg (27.0-33.0); MEAN CORPUSCULAR HGB CONC 32.2 g/dl (32.0-36.5); MEAN CORPUSCULAR VOLUME 107.9 fl (80.0-96.0); PLATELET COUNT, AUTOMATED 281 10^3/uL (150-450); RED BLOOD COUNT 2.79 10^6/uL (4.00-5.40); WHITE BLOOD COUNT 6.3 10^3/uL (4.0-10.0)
[2022-12-22 09:56] LABS: ALBUMIN 3.1 G/DL (3.2-5.2); BLOOD UREA NITROGEN 22 MG/DL (9-23); CALCIUM LEVEL 9.1 MG/DL (8.3-10.6); CARBON DIOXIDE LEVEL 28 MMOL/L (20-31); CHLORIDE LEVEL 102 MMOL/L (98-107); CREATININE FOR GFR 0.72 MG/DL (0.55-1.30); GLOMERULAR FILTRATION RATE > 60.0 (>32); GLUCOSE, FASTING 101 MG/DL (74-106); MAGNESIUM LEVEL 1.8 MG/DL (1.8-2.4); POTASSIUM SERUM 3.9 MMOL/L (3.5-5.1); SODIUM LEVEL 140 MMOL/L (136-145)
== END ==
PROVIDERS: ATTEND Family Medicine
DX: K58.9 Irritable bowel syndrome, unspecified (principal); Z79.899 Other long term (current) drug therapy

== ENCOUNTER → 2023-01-12 | Outpatient (REF) | payer MEDICARE, MEDICAID ==
[~2023-01-12] MED LIST changes: +DICL100G10; -DICL1GEL3
[2023-01-12 08:21] LABS: HEMOGLOBIN 8.9 g/dl (12.0-15.5); MEAN CORPUSCULAR HEMOGLOBIN 34.1 pg (27.0-33.0); MEAN CORPUSCULAR HGB CONC 31.8 g/dl (32.0-36.5); MEAN CORPUSCULAR VOLUME 107.3 fl (80.0-96.0); PLATELET COUNT, AUTOMATED 238 10^3/uL (150-450); RED BLOOD COUNT 2.61 10^6/uL (4.00-5.40); WHITE BLOOD COUNT 5.5 10^3/uL (4.0-10.0)
[2023-01-12 08:50] LABS: LDH LACTATE DEHYDROGENASE 300 U/L (120-246); THYROID STIMULATING HORMONE 11.275 uIU/ML (0.55-4.78); THYROXINE (T4) 6.9 UG/DL (4.5-10.9)
[2023-01-12 08:51] LABS: BLOOD UREA NITROGEN 19 MG/DL (9-23); CALCIUM LEVEL 10.9 MG/DL (8.3-10.6); CARBON DIOXIDE LEVEL 27 MMOL/L (20-31); CHLORIDE LEVEL 104 MMOL/L (98-107); CREATININE FOR GFR 0.69 MG/DL (0.55-1.30); FOLATE 6.36 NG/ML (>5.4); GLOMERULAR FILTRATION RATE > 60.0 (>32); GLUCOSE, FASTING 81 MG/DL (74-106); PTH INTACT 52.3 PG/ML (18.5-88.0); SODIUM LEVEL 140 MMOL/L (136-145); VITAMIN B12 LEVEL 211 PG/ML (211-911)
[2023-01-12 08:52] LABS: TOTAL 25(OH) VITAMIN D 45.2 NG/ML (20.0-100.0)
== END ==
PROVIDERS: ATTEND Nurse Practitioner Family
DX: E11.9 Type 2 diabetes mellitus without complications (principal); D53.9 Nutritional anemia, unspecified; Z79.899 Other long term (current) drug therapy

== ENCOUNTER 2023-01-16 11:42 | Observation (INO) | payer MEDICARE, MEDICAID ==
[2023-01-16 14:00] VITALS: BP 155/74; TEMP 98.4; O2SAT 93
[2023-01-16] MEDS ORDERED: ACETAMINOPHEN TAB 650MG DOSE (2X325MG) PO PRN (14:25)
[2023-01-16] MEDS ORDERED: MAALOX 30 ML SUSP *UDC PO PRN (14:25)
[2023-01-16] MEDS ORDERED: MOM 30ML SUSPENSION UDC PO PRN (14:25)
[2023-01-16] MEDS ORDERED: MED REC IN PROGRESS XX SCH (14:35)
[2023-01-16] MEDS ORDERED: FURO40TA2 PO (15:05)
[2023-01-16] MEDS ORDERED: PREG25CA PO (15:05)
[2023-01-16] MEDS ORDERED: [UNRECOGNIZED DRUG - CODE] PR (15:05)
[2023-01-16] MEDS ORDERED: CREO3600 PO ×2 (15:05)
[2023-01-16] MEDS ORDERED: AQUAOIN12 TOP (15:05)
[2023-01-16] MEDS ORDERED: FLEEENE12 PR (15:05)
[2023-01-16] MEDS ORDERED: GLUC1KIT IM (15:05)
[2023-01-16] MEDS ORDERED: LIDO1ADH16 TOP (15:05)
[2023-01-16] MEDS ORDERED: SITA50TAB PO (15:05)
[2023-01-16] MEDS ORDERED: POTA-150 PO (15:05)
[2023-01-16] MEDS ORDERED: MILKSUS3 PO (15:05)
[2023-01-16] MEDS ORDERED: LEVO25TA5 PO (15:05)
[2023-01-16] MEDS ORDERED: SPIR50TA4 PO (15:05)
[2023-01-16] MEDS ORDERED: CINA30TA4 PO (15:05)
[2023-01-16] MEDS ORDERED: ENSU1LIQ PO (15:05)
[2023-01-16] MEDS ORDERED: HOME MED LIST COMPLETE! XX SCH (15:10)
[2023-01-16 15:18] LABS: HEMATOCRIT 28.1 % (36.0-47.0); HEMOGLOBIN 9.1 g/dl (12.0-15.5); MEAN CORPUSCULAR HEMOGLOBIN 34.6 pg (27.0-33.0); MEAN CORPUSCULAR HGB CONC 32.4 g/dl (32.0-36.5); MEAN CORPUSCULAR VOLUME 106.8 fl (80.0-96.0); PLATELET COUNT, AUTOMATED 260 10^3/uL (150-450); RED BLOOD COUNT 2.63 10^6/uL (4.00-5.40); WHITE BLOOD COUNT 6.1 10^3/uL (4.0-10.0)
[2023-01-16] MEDS ORDERED: PERCOCET 5MG/325MG TAB PO PRN (15:25)
[2023-01-16 15:43] LABS: ALBUMIN 3.2 G/DL (3.2-5.2); ALKALINE PHOSPHATASE 85 U/L (46-116); ALT/SGPT < 9 U/L (7.0-40); AST/SGOT 23 U/L (<34); BILIRUBIN,TOTAL 0.5 MG/DL (0.3-1.2); BLOOD UREA NITROGEN 21 MG/DL (9-23); CALCIUM LEVEL 11.3 MG/DL (8.3-10.6); CARBON DIOXIDE LEVEL 30 MMOL/L (20-31); CHLORIDE LEVEL 102 MMOL/L (98-107); CREATININE FOR GFR 0.75 MG/DL (0.55-1.30); GLOMERULAR FILTRATION RATE > 60.0 (>32); GLUCOSE, FASTING 99 MG/DL (74-106); POTASSIUM SERUM 4.2 MMOL/L (3.5-5.1); SODIUM LEVEL 137 MMOL/L (136-145); TOTAL PROTEIN 5.8 G/DL (5.7-8.2)
[2023-01-16] MEDS: sulfaSALAzine 500 MG TABEC PO SCH ×2 (16:00→21:13)
[2023-01-16] MEDS ORDERED: CREON-12 CAPSULE PO PRN (16:15)
[2023-01-16] MEDS ORDERED: CREON-24 CAPSULE PO SCH (18:00)
[2023-01-16] MEDS: ADVAIR HFA 230/21MCG INHALER INH SCH (19:22)
[2023-01-16] MEDS: DOCUSATE SODIUM 100MG CAPSULE PO SCH (21:11)
[2023-01-16] MEDS: LACTULOSE 20GM/30ML SYRUP UDC PO SCH (21:11)
[2023-01-16] MEDS: FAMOTIDINE 20 MG TAB PO SCH (21:11)
[2023-01-16] MEDS: LATANOPROST 0.005% OPHTH SOLN 2.5 ML OU SCH (21:11)
[2023-01-16] MEDS: ALPRAZolam 0.5 MG TAB PO SCH (21:11)
[2023-01-16 21:47] VITALS: BP 153/74; TEMP 98.2; O2SAT 95
[2023-01-17 05:14] VITALS: BP 141/67; TEMP 98.1; O2SAT 95
[2023-01-17 06:19] LABS: BASO # 0.1 10^3/uL (0.0-0.2); BASO % 1.1 % (0.0-1.0); EOS # 0.1 10^3/uL (0.0-0.5); EOS % 2.5 % (0.0-3.0); HEMATOCRIT 28.9 % (36.0-47.0); HEMOGLOBIN 9.2 g/dl (12.0-15.5); LYMPH # 2.4 10^3/uL (1.5-5.0); LYMPH % 46.1 % (24.0-44.0); MEAN CORPUSCULAR HEMOGLOBIN 34.3 pg (27.0-33.0); MEAN CORPUSCULAR HGB CONC 31.8 g/dl (32.0-36.5); MEAN CORPUSCULAR VOLUME 107.8 fl (80.0-96.0); MONO # 0.6 10^3/uL (0.0-0.8); MONO % 11.7 % (2.0-8.0); NEUTROPHILS % 38.2 % (36.0-66.0); PLATELET COUNT, AUTOMATED 239 10^3/uL (150-450); RED BLOOD COUNT 2.68 10^6/uL (4.00-5.40); WHITE BLOOD COUNT 5.3 10^3/uL (4.0-10.0)
[2023-01-17 06:42] LABS: BLOOD UREA NITROGEN 19 MG/DL (9-23); CALCIUM LEVEL 11.2 MG/DL (8.3-10.6); CARBON DIOXIDE LEVEL 30 MMOL/L (20-31); CHLORIDE LEVEL 102 MMOL/L (98-107); GLOMERULAR FILTRATION RATE > 60.0 (>32); GLUCOSE, FASTING 112 MG/DL (74-106); MAGNESIUM LEVEL 1.8 MG/DL (1.8-2.4); POTASSIUM SERUM 3.6 MMOL/L (3.5-5.1); SODIUM LEVEL 139 MMOL/L (136-145)
[2023-01-17] MEDS: LACTULOSE 20GM/30ML SYRUP UDC PO SCH ×3 (06:45→22:08)
[2023-01-17] MEDS: LEVOTHYROXINE 25MCG TABLET (0.025MG) PO SCH (06:45)
[2023-01-17] MEDS: ADVAIR HFA 230/21MCG INHALER INH SCH ×2 (07:21→19:21)
[2023-01-17] MEDS: CINACALCET 30 MG TAB (SENSIPAR) PO SCH (09:09)
[2023-01-17] MEDS: ALPRAZolam 0.5 MG TAB PO SCH ×2 (09:09→22:04)
[2023-01-17] MEDS: DOCUSATE SODIUM 100MG CAPSULE PO SCH ×2 (09:09→22:05)
[2023-01-17] MEDS: LIDOCAINE 5% (LIDODERM) PATCH TD SCH (09:09)
[2023-01-17] MEDS: ENOXAPARIN 40MG/0.4ML SYRINGE (J1650 PER 10MG) SC SCH (09:10)
[2023-01-17] MEDS: FAMOTIDINE 20 MG TAB PO SCH ×2 (09:10→22:04)
[2023-01-17] MEDS: sulfaSALAzine 500 MG TABEC PO SCH ×3 (09:10→22:06)
[2023-01-17] MEDS: SUCRALFATE 1 GM TAB PO SCH (09:10)
[2023-01-17] MEDS: PREGABALIN 25 MG CAP (LYRICA) PO SCH (09:10)
[2023-01-17] MEDS: LIDOCAINE 4% CREAM 5GM (LMX4) TOP PRN (13:10)
[2023-01-17 14:00] VITALS: BP 142/78; TEMP 97.9; O2SAT 98
[2023-01-17 20:00] VITALS: BP 129/77; TEMP 98.1; O2SAT 94
[2023-01-17] MEDS: LATANOPROST 0.005% OPHTH SOLN 2.5 ML OU SCH (22:07)
[2023-01-18 06:00] VITALS: BP 130/70; TEMP 97.9; O2SAT 100
[2023-01-18 06:06] LABS: BASO # 0.1 10^3/uL (0.0-0.2); BASO % 1.3 % (0.0-1.0); EOS # 0.2 10^3/uL (0.0-0.5); HEMATOCRIT 29.1 % (36.0-47.0); HEMOGLOBIN 9.2 g/dl (12.0-15.5); LYMPH # 1.9 10^3/uL (1.5-5.0); LYMPH % 36.6 % (24.0-44.0); MEAN CORPUSCULAR HEMOGLOBIN 34.3 pg (27.0-33.0); MEAN CORPUSCULAR HGB CONC 31.6 g/dl (32.0-36.5); MEAN CORPUSCULAR VOLUME 108.6 fl (80.0-96.0); MONO # 0.5 10^3/uL (0.0-0.8); MONO % 10.3 % (2.0-8.0); NEUTROPHILS # 2.6 10^3/uL (1.5-8.5); NEUTROPHILS % 48.6 % (36.0-66.0); PLATELET COUNT, AUTOMATED 238 10^3/uL (150-450); RED BLOOD COUNT 2.68 10^6/uL (4.00-5.40); WHITE BLOOD COUNT 5.3 10^3/uL (4.0-10.0)
[2023-01-18] MEDS: LEVOTHYROXINE 25MCG TABLET (0.025MG) PO SCH (06:18)
[2023-01-18] MEDS: LACTULOSE 20GM/30ML SYRUP UDC PO SCH ×3 (06:18→21:41)
[2023-01-18 06:28] LABS: BLOOD UREA NITROGEN 13 MG/DL (9-23); CALCIUM LEVEL 10.8 MG/DL (8.3-10.6); CARBON DIOXIDE LEVEL 27 MMOL/L (20-31); CHLORIDE LEVEL 105 MMOL/L (98-107); CREATININE FOR GFR 0.58 MG/DL (0.55-1.30); GLOMERULAR FILTRATION RATE > 60.0 (>32); GLUCOSE, FASTING 98 MG/DL (74-106); MAGNESIUM LEVEL 1.7 MG/DL (1.8-2.4); POTASSIUM SERUM 3.7 MMOL/L (3.5-5.1); SODIUM LEVEL 141 MMOL/L (136-145)
[2023-01-18] MEDS ORDERED: MAG SULF 1GM/100ML (MAG RUN) 1 GM in IV 1 EA IV ONE (07:00)
[2023-01-18] MEDS: ADVAIR HFA 230/21MCG INHALER INH SCH ×2 (07:21→20:26)
[2023-01-18] MEDS ORDERED: ONDANSETRON 4MG 2ML VIAL IV PRN (09:00)
[2023-01-18] MEDS: ALPRAZolam 0.5 MG TAB PO SCH ×2 (09:30→21:37)
[2023-01-18] MEDS: ENOXAPARIN 40MG/0.4ML SYRINGE (J1650 PER 10MG) SC SCH (09:30)
[2023-01-18] MEDS: PREGABALIN 25 MG CAP (LYRICA) PO SCH (09:30)
[2023-01-18] MEDS: DOCUSATE SODIUM 100MG CAPSULE PO SCH ×2 (09:30→21:39)
[2023-01-18] MEDS: FUROSEMIDE 20 MG TAB PO SCH (09:31)
[2023-01-18] MEDS: LIDOCAINE 5% (LIDODERM) PATCH TD SCH (09:31)
[2023-01-18] MEDS: SPIRONOLACTONE 50 MG TAB PO SCH (09:31)
[2023-01-18] MEDS: FAMOTIDINE 20 MG TAB PO SCH ×2 (09:31→21:38)
[2023-01-18] MEDS: SUCRALFATE 1 GM TAB PO SCH (09:31)
[2023-01-18] MEDS: sulfaSALAzine 500 MG TABEC PO SCH ×3 (09:31→21:40)
[2023-01-18] MEDS: CINACALCET 30 MG TAB (SENSIPAR) PO SCH (09:35)
[2023-01-18 14:00] VITALS: BP 125/66; TEMP 98.1; O2SAT 99
[2023-01-18] MEDS: LATANOPROST 0.005% OPHTH SOLN 2.5 ML OU SCH (21:43)
[2023-01-18 22:00] VITALS: BP 135/64; TEMP 99; O2SAT 98
[2023-01-19] MEDS: LIDOCAINE 4% CREAM 5GM (LMX4) TOP PRN (02:19)
[2023-01-19] MEDS: LEVOTHYROXINE 25MCG TABLET (0.025MG) PO SCH (06:13)
[2023-01-19] MEDS: LACTULOSE 20GM/30ML SYRUP UDC PO SCH ×2 (06:15→14:00)
[2023-01-19 06:20] LABS: BASO # 0.1 10^3/uL (0.0-0.2); BASO % 1.2 % (0.0-1.0); EOS # 0.1 10^3/uL (0.0-0.5); EOS % 2.2 % (0.0-3.0); HEMATOCRIT 27.4 % (36.0-47.0); HEMOGLOBIN 8.7 g/dl (12.0-15.5); LYMPH # 2.4 10^3/uL (1.5-5.0); LYMPH % 40.3 % (24.0-44.0); MEAN CORPUSCULAR HEMOGLOBIN 34.7 pg (27.0-33.0); MEAN CORPUSCULAR HGB CONC 31.8 g/dl (32.0-36.5); MEAN CORPUSCULAR VOLUME 109.2 fl (80.0-96.0); MONO # 0.7 10^3/uL (0.0-0.8); MONO % 11.1 % (2.0-8.0); NEUTROPHILS # 2.7 10^3/uL (1.5-8.5); NEUTROPHILS % 44.7 % (36.0-66.0); PLATELET COUNT, AUTOMATED 241 10^3/uL (150-450); RED BLOOD COUNT 2.51 10^6/uL (4.00-5.40); WHITE BLOOD COUNT 5.9 10^3/uL (4.0-10.0)
[2023-01-19 06:43] LABS: MAGNESIUM LEVEL 1.7 MG/DL (1.8-2.4)
[2023-01-19] MEDS: ADVAIR HFA 230/21MCG INHALER INH SCH ×2 (07:16→21:03)
[2023-01-19 07:24] LABS: BLOOD UREA NITROGEN 9 MG/DL (9-23); CALCIUM LEVEL 10.8 MG/DL (8.3-10.6); CARBON DIOXIDE LEVEL 27 MMOL/L (20-31); CHLORIDE LEVEL 105 MMOL/L (98-107); GLOMERULAR FILTRATION RATE > 60.0 (>32); GLUCOSE, FASTING 105 MG/DL (74-106); SODIUM LEVEL 141 MMOL/L (136-145)
[2023-01-19] MEDS: DOCUSATE SODIUM 100MG CAPSULE PO SCH ×2 (08:28→19:58)
[2023-01-19] MEDS: sulfaSALAzine 500 MG TABEC PO SCH ×3 (08:28→19:57)
[2023-01-19] MEDS: LIDOCAINE 5% (LIDODERM) PATCH TD SCH (08:28)
[2023-01-19] MEDS: ALPRAZolam 0.5 MG TAB PO SCH ×2 (08:28→19:58)
[2023-01-19] MEDS: CINACALCET 30 MG TAB (SENSIPAR) PO SCH (08:28)
[2023-01-19] MEDS: SPIRONOLACTONE 50 MG TAB PO SCH (08:29)
[2023-01-19] MEDS: SUCRALFATE 1 GM TAB PO SCH (08:29)
[2023-01-19] MEDS: ENOXAPARIN 40MG/0.4ML SYRINGE (J1650 PER 10MG) SC SCH (08:29)
[2023-01-19] MEDS: FUROSEMIDE 20 MG TAB PO SCH (08:29)
[2023-01-19] MEDS: PREGABALIN 25 MG CAP (LYRICA) PO SCH (08:29)
[2023-01-19] MEDS: FAMOTIDINE 20 MG TAB PO SCH ×2 (08:30→19:58)
[2023-01-19] MEDS ORDERED: POTASSIUM CHLORIDE 10MEQ SR TABLET PO ONE ×2 (08:45→10:30)
[2023-01-19] MEDS: MAG SULF 1GM/100ML (MAG RUN) 1 GM in IV 1 EA IV SCH ×2 (10:06→11:11)
[2023-01-19 14:00] VITALS: BP 127/64; TEMP 98.6; O2SAT 97
[2023-01-19 15:50] VITALS: BP 103/87; TEMP 98.2; O2SAT 96
[2023-01-19] MEDS ORDERED: propofoL 200 MG/20 ML VIAL As Ordered ONE ×2 (15:54→17:00)
[2023-01-19] MEDS ORDERED: LIDOCAINE 2% 100MG/5ML SDV (FOR ANES.) As Ordered ONE (16:25)
[2023-01-19] MEDS ORDERED: GLUCAGON INJ 1MG VIAL As Ordered ONE ×2 (16:41→16:45)
[2023-01-19] MEDS ORDERED: GLYCOPYRROLATE INJ 0.2 MG/ML 2 ML VIAL As Ordered ONE (16:45)
[2023-01-19] MEDS ORDERED: SIMETHICONE 40MG/0.6ML DROPS 30ML As Ordered ONE (16:56)
[2023-01-19] MEDS ORDERED: ONDANSETRON 4MG 2ML VIAL IV PRN (17:35)
[2023-01-19] MEDS: LATANOPROST 0.005% OPHTH SOLN 2.5 ML OU SCH (19:58)
[2023-01-19 20:39] VITALS: BP 111/84; TEMP 98.2
[2023-01-19 23:35] VITALS: O2SAT 97
[2023-01-20 06:00] VITALS: BP 124/75; TEMP 98.1; O2SAT 94
[2023-01-20] MEDS: LEVOTHYROXINE 25MCG TABLET (0.025MG) PO SCH (06:17)
[2023-01-20 06:28] LABS: BASO # 0.1 10^3/uL (0.0-0.2); BASO % 1.2 % (0.0-1.0); EOS # 0.2 10^3/uL (0.0-0.5); EOS % 2.5 % (0.0-3.0); HEMOGLOBIN 7.8 g/dl (12.0-15.5); LYMPH # 2.4 10^3/uL (1.5-5.0); LYMPH % 40.4 % (24.0-44.0); MEAN CORPUSCULAR HEMOGLOBIN 34.7 pg (27.0-33.0); MEAN CORPUSCULAR HGB CONC 32.5 g/dl (32.0-36.5); MEAN CORPUSCULAR VOLUME 106.7 fl (80.0-96.0); MONO # 0.6 10^3/uL (0.0-0.8); MONO % 10.3 % (2.0-8.0); NEUTROPHILS # 2.7 10^3/uL (1.5-8.5); NEUTROPHILS % 45.4 % (36.0-66.0); PLATELET COUNT, AUTOMATED 235 10^3/uL (150-450); RED BLOOD COUNT 2.25 10^6/uL (4.00-5.40); WHITE BLOOD COUNT 5.9 10^3/uL (4.0-10.0)
[2023-01-20 06:52] LABS: BLOOD UREA NITROGEN 10 MG/DL (9-23); CALCIUM LEVEL 10.9 MG/DL (8.3-10.6); CARBON DIOXIDE LEVEL 25 MMOL/L (20-31); CHLORIDE LEVEL 105 MMOL/L (98-107); CREATININE FOR GFR 0.66 MG/DL (0.55-1.30); GLOMERULAR FILTRATION RATE > 60.0 (>32); GLUCOSE, FASTING 91 MG/DL (74-106); MAGNESIUM LEVEL 1.7 MG/DL (1.8-2.4); POTASSIUM SERUM 3.6 MMOL/L (3.5-5.1); SODIUM LEVEL 139 MMOL/L (136-145)
[2023-01-20] MEDS: ADVAIR HFA 230/21MCG INHALER INH SCH (07:08)
[2023-01-20] MEDS: LIDOCAINE 5% (LIDODERM) PATCH TD SCH (10:27)
[2023-01-20] MEDS: DOCUSATE SODIUM 100MG CAPSULE PO SCH (10:28)
[2023-01-20] MEDS: FAMOTIDINE 20 MG TAB PO SCH (10:28)
[2023-01-20] MEDS: SUCRALFATE 1 GM TAB PO SCH (10:28)
[2023-01-20] MEDS: ENOXAPARIN 40MG/0.4ML SYRINGE (J1650 PER 10MG) SC SCH (10:28)
[2023-01-20] MEDS: CINACALCET 30 MG TAB (SENSIPAR) PO SCH (10:28)
[2023-01-20] MEDS: FUROSEMIDE 20 MG TAB PO SCH (10:28)
[2023-01-20] MEDS: sulfaSALAzine 500 MG TABEC PO SCH (10:29)
[2023-01-20] MEDS: SPIRONOLACTONE 50 MG TAB PO SCH (10:29)
[2023-01-20] MEDS: ALPRAZolam 0.5 MG TAB PO SCH (10:29)
[2023-01-20] MEDS: PREGABALIN 25 MG CAP (LYRICA) PO SCH (10:29)
== END 2023-01-20 12:03 ==
LOC: M MSPAV 11:42 → INTOOBSV 11:42 → UNDODISIN 14:07
PROVIDERS: ADMIT Internal Medicine; ATTEND Internal Medicine
DX: K51.40 Inflammatory polyps of colon without complications (principal); K62.89 Other specified diseases of anus and rectum; D12.5 Benign neoplasm of sigmoid colon; D12.0 Benign neoplasm of cecum; K60.2 Anal fissure, unspecified; K57.30 Diverticulosis of large intestine without perforation or abscess without bleeding; K52.9 Noninfective gastroenteritis and colitis, unspecified; K56.41 Fecal impaction; R15.9 Full incontinence of feces; E83.42 Hypomagnesemia; D53.9 Nutritional anemia, unspecified; E87.6 Hypokalemia; I50.32 Chronic diastolic (congestive) heart failure; I11.0 Hypertensive heart disease with heart failure; E78.5 Hyperlipidemia, unspecified; H44.9 Unspecified disorder of globe; E03.9 Hypothyroidism, unspecified; J44.9 Chronic obstructive pulmonary disease, unspecified; E83.52 Hypercalcemia; G62.9 Polyneuropathy, unspecified; F41.9 Anxiety disorder, unspecified; K21.9 Gastro-esophageal reflux disease without esophagitis; Z88.0 Allergy status to penicillin; Z79.899 Other long term (current) drug therapy; Z79.890 Hormone replacement therapy
CPT/HCPCS: 36415; 45380; 45385; 71045; 80048; 80053; 81401; 81479; 83520; 83735; 85025; 85027; 86480; 87340; 87635; 88305; 88346; 88350; 93005; 94640; 96372; 96374; G0378; J1610; J1650; J2405; J3475

== ENCOUNTER → 2023-01-19 | Outpatient (REF) | payer MEDICARE, MEDICAID ==
[~2023-01-19] MED LIST changes: +AQUAOIN12 TOP; +CINA30TA4 PO; +CREO3600 PO; +ENSU1LIQ PO; +GLUC1KIT IM; +LEVO25TA5 PO; +LIDO1ADH16 TOP; +POTA-150 PO; +PREG25CA PO; +SITA50TAB PO; +SPIR50TA4 PO; +[UNRECOGNIZED DRUG - CODE] PR
== END ==
PROVIDERS: ATTEND Nurse Practitioner Family
DX: D64.9 Anemia, unspecified (principal); E87.5 Hyperkalemia; Z53.8 Procedure and treatment not carried out for other reasons

== ENCOUNTER → 2023-01-28 | Outpatient (REF) | payer MEDICARE, MEDICAID ==
[2023-01-28 08:30] LABS: BASO % 0.7 % (0.0-1.0); EOS # 0.1 10^3/uL (0.0-0.5); HEMATOCRIT 28.8 % (36.0-47.0); HEMOGLOBIN 9.1 g/dl (12.0-15.5); LYMPH % 49.2 % (24.0-44.0); MEAN CORPUSCULAR HEMOGLOBIN 33.7 pg (27.0-33.0); MEAN CORPUSCULAR HGB CONC 31.6 g/dl (32.0-36.5); MEAN CORPUSCULAR VOLUME 106.7 fl (80.0-96.0); MONO # 0.6 10^3/uL (0.0-0.8); NEUTROPHILS # 2.4 10^3/uL (1.5-8.5); NEUTROPHILS % 38.8 % (36.0-66.0); PLATELET COUNT, AUTOMATED 262 10^3/uL (150-450); WHITE BLOOD COUNT 6.1 10^3/uL (4.0-10.0)
[2023-01-28 08:51] LABS: BLOOD UREA NITROGEN 22 MG/DL (9-23); CALCIUM LEVEL 10.8 MG/DL (8.3-10.6); CARBON DIOXIDE LEVEL 26 MMOL/L (20-31); CHLORIDE LEVEL 105 MMOL/L (98-107); CREATININE FOR GFR 0.76 MG/DL (0.55-1.30); GLOMERULAR FILTRATION RATE > 60.0 (>32); GLUCOSE, FASTING 100 MG/DL (74-106); POTASSIUM SERUM 4.4 MMOL/L (3.5-5.1); SODIUM LEVEL 140 MMOL/L (136-145)
== END ==
PROVIDERS: ATTEND Nurse Practitioner Family
DX: I50.9 Heart failure, unspecified (principal)

== ENCOUNTER → 2023-02-02 | Outpatient (REF) | payer MEDICARE, MEDICAID ==
[2023-02-02 08:48] LABS: BLOOD UREA NITROGEN 19 MG/DL (9-23); CALCIUM LEVEL 11.8 MG/DL (8.3-10.6); CARBON DIOXIDE LEVEL 29 MMOL/L (20-31); CHLORIDE LEVEL 101 MMOL/L (98-107); CREATININE FOR GFR 0.69 MG/DL (0.55-1.30); GLOMERULAR FILTRATION RATE > 60.0 (>32); GLUCOSE, FASTING 78 MG/DL (74-106); POTASSIUM SERUM 4.1 MMOL/L (3.5-5.1); SODIUM LEVEL 138 MMOL/L (136-145)
== END ==
PROVIDERS: ATTEND Nurse Practitioner Family
DX: E83.52 Hypercalcemia (principal)

== ENCOUNTER 2023-02-03 10:54 | Outpatient (CLI) | payer MEDICARE, MEDICAID ==
[~2023-02-03 10:54] MED LIST changes: -CYAN1000VL SC; -LACT20EL PO; -MAGN500T8 PO; -NIFE10CA2 PO; -OMEP-173 PO; -PNEU0.5I2 IM; -TUMS500C PO; -nitroglycerin RC
[2023-02-03 11:10] VITALS: BP 167/77; O2SAT 97
[2023-02-03] MEDS ORDERED: ZOLEDRONIC ACID 4 MG in IV 1 EA IV ONE (11:30)
[2023-02-03 11:50] VITALS: BP 148/70; O2SAT 97
[2023-02-05] MEDS ORDERED: CYAN1000VL SC (09:20)
[2023-02-05] MEDS ORDERED: nitroglycerin RC (09:20)
[2023-02-05] MEDS ORDERED: MAGN500T8 PO (09:20)
[2023-02-05] MEDS ORDERED: PNEU0.5I2 IM (09:20)
[2023-02-05] MEDS ORDERED: NIFE10CA2 PO (09:20)
[2023-02-05] MEDS ORDERED: LACT20EL PO (09:20)
[2023-02-05] MEDS ORDERED: OMEP-173 PO (09:20)
[2023-02-05] MEDS ORDERED: TUMS500C PO (09:20)
[2023-02-05] MEDS ORDERED: CREO3600 PO (09:20)
== END 2023-02-03 11:50 | disposition home or self-care (01) ==
LOC: M INFU 10:54
PROVIDERS: ATTEND Nurse Practitioner Family
DX: E83.52 Hypercalcemia (principal); Z88.0 Allergy status to penicillin
CPT/HCPCS: 96365; J3489

== ENCOUNTER → 2023-02-03 | Outpatient (REF) | payer MEDICARE, MEDICAID ==
[~2023-02-03] MED LIST changes: +CYAN1000VL SC; +LACT20EL PO; +MAGN500T8 PO; +NIFE10CA2 PO; +OMEP-173 PO; +PNEU0.5I2 IM; +TUMS500C PO; +nitroglycerin RC
[2023-02-03 16:04] LABS: BLOOD UREA NITROGEN 19 MG/DL (9-23); CALCIUM LEVEL 11.9 MG/DL (8.3-10.6); CARBON DIOXIDE LEVEL 26 MMOL/L (20-31); CHLORIDE LEVEL 100 MMOL/L (98-107); CREATININE FOR GFR 0.69 MG/DL (0.55-1.30); GLOMERULAR FILTRATION RATE > 60.0 (>32); GLUCOSE, FASTING 88 MG/DL (74-106); POTASSIUM SERUM 4.5 MMOL/L (3.5-5.1); SODIUM LEVEL 135 MMOL/L (136-145)
== END ==
PROVIDERS: ATTEND Nurse Practitioner Family
DX: E83.52 Hypercalcemia (principal)

== ENCOUNTER → 2023-02-04 | Outpatient (REF) | payer MEDICARE, MEDICAID ==
[~2023-02-04] MED LIST changes: +CYAN1000VL SC; +LACT20EL PO; +MAGN500T8 PO; +NIFE10CA2 PO; +OMEP-173 PO; +PNEU0.5I2 IM; +TUMS500C PO; +nitroglycerin RC
[2023-02-04 09:42] LABS: BLOOD UREA NITROGEN 17 MG/DL (9-23); CALCIUM LEVEL 11.5 MG/DL (8.3-10.6); CARBON DIOXIDE LEVEL 31 MMOL/L (20-31); CHLORIDE LEVEL 100 MMOL/L (98-107); GLOMERULAR FILTRATION RATE > 60.0 (>32); GLUCOSE, FASTING 88 MG/DL (74-106); POTASSIUM SERUM 3.6 MMOL/L (3.5-5.1); SODIUM LEVEL 138 MMOL/L (136-145)
== END ==
PROVIDERS: ATTEND Nurse Practitioner Family
DX: E83.52 Hypercalcemia (principal)

== ENCOUNTER → 2023-02-05 | Outpatient (REF) | payer MEDICARE, MEDICAID ==
[2023-02-05 17:08] LABS: BLOOD UREA NITROGEN 20 MG/DL (9-23); CALCIUM LEVEL 11.3 MG/DL (8.3-10.6); CARBON DIOXIDE LEVEL 30 MMOL/L (20-31); CHLORIDE LEVEL 98 MMOL/L (98-107); CREATININE FOR GFR 0.76 MG/DL (0.55-1.30); GLOMERULAR FILTRATION RATE > 60.0 (>32); GLUCOSE, FASTING 81 MG/DL (74-106); POTASSIUM SERUM 3.8 MMOL/L (3.5-5.1); SODIUM LEVEL 136 MMOL/L (136-145)
== END ==
PROVIDERS: ATTEND Nurse Practitioner Family
DX: E83.52 Hypercalcemia (principal)

== ENCOUNTER → 2023-02-06 | Outpatient (REF) | payer MEDICARE, MEDICAID ==
[2023-02-06 08:30] LABS: BLOOD UREA NITROGEN 21 MG/DL (9-23); CALCIUM LEVEL 10.1 MG/DL (8.3-10.6); CARBON DIOXIDE LEVEL 28 MMOL/L (20-31); CHLORIDE LEVEL 103 MMOL/L (98-107); CREATININE FOR GFR 0.83 MG/DL (0.55-1.30); GLOMERULAR FILTRATION RATE > 60.0 (>32); GLUCOSE, FASTING 95 MG/DL (74-106); SODIUM LEVEL 138 MMOL/L (136-145)
== END ==
PROVIDERS: ATTEND Nurse Practitioner Family
DX: E83.52 Hypercalcemia (principal)

== ENCOUNTER → 2023-02-11 | Outpatient (REF) | payer MEDICARE, MEDICAID ==
[2023-02-11 09:53] LABS: BLOOD UREA NITROGEN 18 MG/DL (9-23); CALCIUM LEVEL 8.1 MG/DL (8.3-10.6); CARBON DIOXIDE LEVEL 24 MMOL/L (20-31); CHLORIDE LEVEL 104 MMOL/L (98-107); CREATININE FOR GFR 0.73 MG/DL (0.55-1.30); GLOMERULAR FILTRATION RATE > 60.0 (>32); GLUCOSE, FASTING 101 MG/DL (74-106); POTASSIUM SERUM 4.5 MMOL/L (3.5-5.1); SODIUM LEVEL 136 MMOL/L (136-145)
== END ==
PROVIDERS: ATTEND Nurse Practitioner Family
DX: E83.52 Hypercalcemia (principal)

== ENCOUNTER → 2023-02-16 | Outpatient (REF) | payer MEDICARE, MEDICAID ==
[2023-02-16 10:43] LABS: HEMATOCRIT 29.2 % (36.0-47.0); HEMOGLOBIN 9.3 g/dl (12.0-15.5); MEAN CORPUSCULAR HGB CONC 31.8 g/dl (32.0-36.5); MEAN CORPUSCULAR VOLUME 100.3 fl (80.0-96.0); PLATELET COUNT, AUTOMATED 291 10^3/uL (150-450); RED BLOOD COUNT 2.91 10^6/uL (4.00-5.40); WHITE BLOOD COUNT 5.6 10^3/uL (4.0-10.0)
[2023-02-16 11:20] LABS: ALBUMIN 2.8 G/DL (3.2-5.2); BLOOD UREA NITROGEN 13 MG/DL (9-23); CALCIUM LEVEL 7.3 MG/DL (8.3-10.6); CARBON DIOXIDE LEVEL 22 MMOL/L (20-31); CHLORIDE LEVEL 106 MMOL/L (98-107); CREATININE FOR GFR 0.57 MG/DL (0.55-1.30); GLOMERULAR FILTRATION RATE > 60.0 (>32); GLUCOSE, FASTING 101 MG/DL (74-106); MAGNESIUM LEVEL 1.3 MG/DL (1.8-2.4); POTASSIUM SERUM 4.1 MMOL/L (3.5-5.1); SODIUM LEVEL 134 MMOL/L (136-145); THYROXINE (T4) 11.3 UG/DL (4.5-10.9)
== END ==
PROVIDERS: ATTEND Family Medicine
DX: E83.52 Hypercalcemia (principal)

== ENCOUNTER → 2023-02-23 | Outpatient (REF) | payer MEDICARE, MEDICAID ==
[2023-02-23 11:31] LABS: BLOOD UREA NITROGEN 17 MG/DL (9-23); CALCIUM LEVEL 7.7 MG/DL (8.3-10.6); CARBON DIOXIDE LEVEL 24 MMOL/L (20-31); CHLORIDE LEVEL 106 MMOL/L (98-107); CREATININE FOR GFR 0.59 MG/DL (0.55-1.30); GLOMERULAR FILTRATION RATE > 60.0 (>32); GLUCOSE, FASTING 149 MG/DL (74-106); POTASSIUM SERUM 4.2 MMOL/L (3.5-5.1); SODIUM LEVEL 138 MMOL/L (136-145)
== END ==
PROVIDERS: ATTEND Nurse Practitioner Family
DX: E03.9 Hypothyroidism, unspecified (principal)

== ENCOUNTER → 2023-03-16 | Outpatient (REF) | payer MEDICARE, MEDICAID ==
[2023-03-16 10:59] LABS: HEMATOCRIT 30.2 % (36.0-47.0); HEMOGLOBIN 9.6 g/dl (12.0-15.5); MEAN CORPUSCULAR HEMOGLOBIN 33.8 pg (27.0-33.0); MEAN CORPUSCULAR HGB CONC 31.8 g/dl (32.0-36.5); MEAN CORPUSCULAR VOLUME 106.3 fl (80.0-96.0); PLATELET COUNT, AUTOMATED 256 10^3/uL (150-450); RED BLOOD COUNT 2.84 10^6/uL (4.00-5.40); WHITE BLOOD COUNT 5.4 10^3/uL (4.0-10.0)
[2023-03-16 11:30] LABS: THYROID STIMULATING HORMONE 7.966 uIU/ML (0.55-4.78); THYROXINE (T4) 9.5 UG/DL (4.5-10.9)
[2023-03-16 11:33] LABS: ALBUMIN 2.8 G/DL (3.2-5.2); BLOOD UREA NITROGEN 18 MG/DL (9-23); CALCIUM LEVEL 7.5 MG/DL (8.3-10.6); CARBON DIOXIDE LEVEL 27 MMOL/L (20-31); CHLORIDE LEVEL 107 MMOL/L (98-107); CREATININE FOR GFR 0.62 MG/DL (0.55-1.30); GLOMERULAR FILTRATION RATE > 60.0 (>32); GLUCOSE, FASTING 109 MG/DL (74-106); SODIUM LEVEL 141 MMOL/L (136-145)
[2023-03-16 13:07] LABS: MAGNESIUM LEVEL 1.6 MG/DL (1.8-2.4)
== END ==
PROVIDERS: ATTEND Family Medicine
DX: E83.52 Hypercalcemia (principal)

== ENCOUNTER → 2023-03-23 | Outpatient (REF) | payer MEDICARE, MEDICAID ==
[~2023-03-23] MED LIST changes: +GLIP5TAB17; +GLIP5TAB17 PO; -GLIP5TAB8; -GLIP5TAB8 PO
[2023-03-23 11:29] LABS: HEMATOCRIT 29.8 % (36.0-47.0); HEMOGLOBIN 9.3 g/dl (12.0-15.5); MEAN CORPUSCULAR HEMOGLOBIN 32.9 pg (27.0-33.0); MEAN CORPUSCULAR HGB CONC 31.2 g/dl (32.0-36.5); MEAN CORPUSCULAR VOLUME 105.3 fl (80.0-96.0); PLATELET COUNT, AUTOMATED 218 10^3/uL (150-450); RED BLOOD COUNT 2.83 10^6/uL (4.00-5.40); WHITE BLOOD COUNT 6.9 10^3/uL (4.0-10.0)
[2023-03-23 11:51] LABS: BLOOD UREA NITROGEN 16 MG/DL (9-23); CALCIUM LEVEL 7.5 MG/DL (8.3-10.6); CARBON DIOXIDE LEVEL 27 MMOL/L (20-31); CHLORIDE LEVEL 104 MMOL/L (98-107); CREATININE FOR GFR 0.64 MG/DL (0.55-1.30); GLOMERULAR FILTRATION RATE > 60.0 (>32); GLUCOSE, FASTING 150 MG/DL (74-106); POTASSIUM SERUM 3.9 MMOL/L (3.5-5.1); SODIUM LEVEL 139 MMOL/L (136-145)
== END ==
PROVIDERS: ATTEND Nurse Practitioner Family
DX: E83.52 Hypercalcemia (principal)

== ENCOUNTER → 2023-03-30 | Outpatient (REF) | payer MEDICARE, MEDICAID | PROVIDERS: ATTEND Nurse Practitioner Family | DX: E83.52 Hypercalcemia (principal); Z53.8 Procedure and treatment not carried out for other reasons ==

== ENCOUNTER → 2023-04-01 | Outpatient (REF) | payer MEDICARE, MEDICAID | PROVIDERS: ATTEND Nurse Practitioner Family | DX: D64.9 Anemia, unspecified (principal); Z53.8 Procedure and treatment not carried out for other reasons ==

== ENCOUNTER → 2023-04-01 | Outpatient (REF) | payer MEDICARE, MEDICAID | PROVIDERS: ATTEND Family Medicine | DX: K59.00 Constipation, unspecified (principal) ==

== ENCOUNTER → 2023-04-02 | Outpatient (REF) | payer MEDICARE, MEDICAID ==
[2023-04-02 14:11] LABS: BASO # 0.1 10^3/uL (0.0-0.2); BASO % 1.2 % (0.0-1.0); EOS % 0.4 % (0.0-3.0); HEMATOCRIT 31.2 % (36.0-47.0); HEMOGLOBIN 9.8 g/dl (12.0-15.5); LYMPH % 25.8 % (24.0-44.0); MEAN CORPUSCULAR HEMOGLOBIN 33.4 pg (27.0-33.0); MEAN CORPUSCULAR HGB CONC 31.4 g/dl (32.0-36.5); MEAN CORPUSCULAR VOLUME 106.5 fl (80.0-96.0); MONO # 0.7 10^3/uL (0.0-0.8); MONO % 9.3 % (2.0-8.0); NEUTROPHILS # 4.8 10^3/uL (1.5-8.5); NEUTROPHILS % 62.8 % (36.0-66.0); PLATELET COUNT, AUTOMATED 341 10^3/uL (150-450); RED BLOOD COUNT 2.93 10^6/uL (4.00-5.40); WHITE BLOOD COUNT 7.6 10^3/uL (4.0-10.0)
[2023-04-02 14:40] LABS: ALBUMIN 2.8 G/DL (3.2-5.2); ALKALINE PHOSPHATASE 114 U/L (46-116); ALT/SGPT 10 U/L (7.0-40); AST/SGOT 31 U/L (<34); BILIRUBIN,TOTAL 0.5 MG/DL (0.3-1.2); BLOOD UREA NITROGEN 19 MG/DL (9-23); CALCIUM LEVEL 9.1 MG/DL (8.3-10.6); CARBON DIOXIDE LEVEL 26 MMOL/L (20-31); CHLORIDE LEVEL 101 MMOL/L (98-107); CREATININE FOR GFR 0.74 MG/DL (0.55-1.30); GLOMERULAR FILTRATION RATE > 60.0 (>32); GLUCOSE, FASTING 117 MG/DL (74-106); MAGNESIUM LEVEL 1.9 MG/DL (1.8-2.4); POTASSIUM SERUM 4.6 MMOL/L (3.5-5.1); SODIUM LEVEL 137 MMOL/L (136-145); TOTAL PROTEIN 5.5 G/DL (5.7-8.2)
== END ==
PROVIDERS: ATTEND Family Medicine
DX: I50.9 Heart failure, unspecified (principal)

== ENCOUNTER → 2023-04-06 | Outpatient (REF) | payer MEDICARE, MEDICAID ==
[2023-04-06 11:12] LABS: BLOOD UREA NITROGEN 14 MG/DL (9-23); CALCIUM LEVEL 8.7 MG/DL (8.3-10.6); CARBON DIOXIDE LEVEL 28 MMOL/L (20-31); CHLORIDE LEVEL 101 MMOL/L (98-107); CREATININE FOR GFR 0.59 MG/DL (0.55-1.30); GLOMERULAR FILTRATION RATE > 60.0 (>32); GLUCOSE, FASTING 171 MG/DL (74-106); POTASSIUM SERUM 3.6 MMOL/L (3.5-5.1); SODIUM LEVEL 137 MMOL/L (136-145)
== END ==
PROVIDERS: ATTEND Family Medicine
DX: E83.52 Hypercalcemia (principal)

== ENCOUNTER → 2023-04-09 | Outpatient (REF) | payer MEDICARE, MEDICAID ==
[2023-04-09 11:42] LABS: ALBUMIN 2.5 G/DL (3.2-5.2); BLOOD UREA NITROGEN 15 MG/DL (9-23); CARBON DIOXIDE LEVEL 29 MMOL/L (20-31); CHLORIDE LEVEL 102 MMOL/L (98-107); CREATININE FOR GFR 0.65 MG/DL (0.55-1.30); GLOMERULAR FILTRATION RATE > 60.0 (>32); GLUCOSE, FASTING 86 MG/DL (74-106); MAGNESIUM LEVEL 1.8 MG/DL (1.8-2.4); PHOSPHORUS LEVEL 3.1 MG/DL (2.4-5.1); POTASSIUM SERUM 4.2 MMOL/L (3.5-5.1); SODIUM LEVEL 138 MMOL/L (136-145)
== END ==
PROVIDERS: ATTEND Family Medicine
DX: I50.32 Chronic diastolic (congestive) heart failure (principal); E21.0 Primary hyperparathyroidism

== ENCOUNTER → 2023-04-13 | Outpatient (REF) | payer MEDICARE, MEDICAID ==
[2023-04-13 11:53] LABS: BLOOD UREA NITROGEN 17 MG/DL (9-23); CALCIUM LEVEL 9.4 MG/DL (8.3-10.6); CARBON DIOXIDE LEVEL 27 MMOL/L (20-31); CHLORIDE LEVEL 103 MMOL/L (98-107); GLOMERULAR FILTRATION RATE > 60.0 (>32); GLUCOSE, FASTING 88 MG/DL (74-106); POTASSIUM SERUM 3.8 MMOL/L (3.5-5.1); SODIUM LEVEL 137 MMOL/L (136-145)
== END ==
PROVIDERS: ATTEND Nurse Practitioner Family
DX: E83.52 Hypercalcemia (principal)

== ENCOUNTER → 2023-04-21 | Outpatient (REF) | payer MEDICARE, MEDICAID ==
[2023-04-21 14:56] LABS: ALBUMIN 2.3 G/DL (3.2-5.2); BLOOD UREA NITROGEN 18 MG/DL (9-23); CALCIUM LEVEL 9.3 MG/DL (8.3-10.6); CARBON DIOXIDE LEVEL 24 MMOL/L (20-31); CHLORIDE LEVEL 102 MMOL/L (98-107); CREATININE FOR GFR 0.66 MG/DL (0.55-1.30); GLOMERULAR FILTRATION RATE > 60.0 (>32); GLUCOSE, FASTING 160 MG/DL (74-106); PHOSPHORUS LEVEL 3.4 MG/DL (2.4-5.1); POTASSIUM SERUM 4.2 MMOL/L (3.5-5.1); SODIUM LEVEL 136 MMOL/L (136-145)
== END ==
PROVIDERS: ATTEND Nurse Practitioner Family
DX: E83.52 Hypercalcemia (principal); I50.32 Chronic diastolic (congestive) heart failure

== ENCOUNTER → 2023-04-27 | Outpatient (REF) | payer MEDICARE, MEDICAID ==
[2023-04-27 11:24] LABS: HEMATOCRIT 31.9 % (36.0-47.0); HEMOGLOBIN 9.8 g/dl (12.0-15.5); MEAN CORPUSCULAR HEMOGLOBIN 32.9 pg (27.0-33.0); MEAN CORPUSCULAR HGB CONC 30.7 g/dl (32.0-36.5); PLATELET COUNT, AUTOMATED 294 10^3/uL (150-450); RED BLOOD COUNT 2.98 10^6/uL (4.00-5.40); WHITE BLOOD COUNT 6.4 10^3/uL (4.0-10.0)
[2023-04-27 11:58] LABS: ALBUMIN 2.6 G/DL (3.2-5.2); BLOOD UREA NITROGEN 18 MG/DL (9-23); CALCIUM LEVEL 9.3 MG/DL (8.3-10.6); CARBON DIOXIDE LEVEL 25 MMOL/L (20-31); CHLORIDE LEVEL 103 MMOL/L (98-107); CREATININE FOR GFR 0.69 MG/DL (0.55-1.30); GLOMERULAR FILTRATION RATE > 60.0 (>32); GLUCOSE, FASTING 177 MG/DL (74-106); MAGNESIUM LEVEL 1.6 MG/DL (1.8-2.4); POTASSIUM SERUM 4.2 MMOL/L (3.5-5.1); SODIUM LEVEL 137 MMOL/L (136-145)
[2023-04-27 11:59] LABS: THYROXINE (T4) 7.5 UG/DL (4.5-10.9)
== END ==
PROVIDERS: ATTEND Nurse Practitioner Family
DX: I11.9 Hypertensive heart disease without heart failure (principal); Z79.899 Other long term (current) drug therapy

== ENCOUNTER → 2023-05-04 | Outpatient (REF) | payer MEDICARE, MEDICAID ==
[2023-05-04 10:33] LABS: BLOOD UREA NITROGEN 15 MG/DL (9-23); CALCIUM LEVEL 9.5 MG/DL (8.3-10.6); CARBON DIOXIDE LEVEL 24 MMOL/L (20-31); CHLORIDE LEVEL 104 MMOL/L (98-107); GLOMERULAR FILTRATION RATE > 60.0 (>32); GLUCOSE, FASTING 176 MG/DL (74-106); POTASSIUM SERUM 4.1 MMOL/L (3.5-5.1); SODIUM LEVEL 137 MMOL/L (136-145)
== END ==
PROVIDERS: ATTEND Physician Assistant
DX: E83.52 Hypercalcemia (principal)

== ENCOUNTER → 2023-05-04 | Outpatient (REF) | payer MEDICARE, MEDICAID | PROVIDERS: ATTEND Nurse Practitioner Family | DX: I50.9 Heart failure, unspecified (principal); Z53.8 Procedure and treatment not carried out for other reasons ==

== ENCOUNTER → 2023-05-11 | Outpatient (REF) | payer MEDICARE, MEDICAID ==
[2023-05-11 11:25] LABS: BLOOD UREA NITROGEN 15 MG/DL (9-23); CALCIUM LEVEL 9.1 MG/DL (8.3-10.6); CARBON DIOXIDE LEVEL 27 MMOL/L (20-31); CHLORIDE LEVEL 103 MMOL/L (98-107); CREATININE FOR GFR 0.64 MG/DL (0.55-1.30); GLOMERULAR FILTRATION RATE > 60.0 (>32); GLUCOSE, FASTING 127 MG/DL (74-106); POTASSIUM SERUM 3.9 MMOL/L (3.5-5.1); SODIUM LEVEL 135 MMOL/L (136-145)
== END ==
PROVIDERS: ATTEND Physician Assistant
DX: E83.52 Hypercalcemia (principal)

== ENCOUNTER → 2023-05-18 | Outpatient (REF) | payer MEDICARE, MEDICAID ==
[2023-05-18 11:53] LABS: HEMATOCRIT 32.4 % (36.0-47.0); HEMOGLOBIN 10.1 g/dl (12.0-15.5); MEAN CORPUSCULAR HEMOGLOBIN 32.6 pg (27.0-33.0); MEAN CORPUSCULAR HGB CONC 31.2 g/dl (32.0-36.5); MEAN CORPUSCULAR VOLUME 104.5 fl (80.0-96.0); PLATELET COUNT, AUTOMATED 300 10^3/uL (150-450); WHITE BLOOD COUNT 5.8 10^3/uL (4.0-10.0)
[2023-05-18 12:18] LABS: ALBUMIN 2.8 G/DL (3.2-5.2); BLOOD UREA NITROGEN 20 MG/DL (9-23); CALCIUM LEVEL 9.7 MG/DL (8.3-10.6); CARBON DIOXIDE LEVEL 27 MMOL/L (20-31); CHLORIDE LEVEL 104 MMOL/L (98-107); GLOMERULAR FILTRATION RATE > 60.0 (>32); GLUCOSE, FASTING 111 MG/DL (74-106); MAGNESIUM LEVEL 1.8 MG/DL (1.8-2.4); POTASSIUM SERUM 4.9 MMOL/L (3.5-5.1); PTH INTACT 60.7 PG/ML (18.5-88.0); SODIUM LEVEL 135 MMOL/L (136-145)
[2023-05-18 12:19] LABS: THYROID STIMULATING HORMONE 14.941 uIU/ML (0.55-4.78); THYROXINE (T4) 8.2 UG/DL (4.5-10.9); TOTAL 25(OH) VITAMIN D 43.3 NG/ML (20.0-100.0)
[2023-05-18 12:21] LABS: VITAMIN B12 LEVEL > 2000 PG/ML (211-911)
== END ==
PROVIDERS: ATTEND Nurse Practitioner Family
DX: E11.9 Type 2 diabetes mellitus without complications (principal); E83.52 Hypercalcemia

== ENCOUNTER → 2023-05-25 | Outpatient (REF) | payer MEDICARE, MEDICAID ==
[2023-05-25 11:42] LABS: BLOOD UREA NITROGEN 22 MG/DL (9-23); CALCIUM LEVEL 10.2 MG/DL (8.3-10.6); CARBON DIOXIDE LEVEL 25 MMOL/L (20-31); CHLORIDE LEVEL 101 MMOL/L (98-107); CREATININE FOR GFR 0.69 MG/DL (0.55-1.30); GLOMERULAR FILTRATION RATE > 60.0 (>32); GLUCOSE, FASTING 161 MG/DL (74-106); POTASSIUM SERUM 4.2 MMOL/L (3.5-5.1); SODIUM LEVEL 135 MMOL/L (136-145)
== END ==
PROVIDERS: ATTEND Physician Assistant
DX: E83.52 Hypercalcemia (principal)

== ENCOUNTER → 2023-06-03 | Outpatient (REF) | payer MEDICARE, MEDICAID ==
[2023-06-03 09:49] LABS: BASO # 0.1 10^3/uL (0.0-0.2); BASO % 1.1 % (0.0-1.0); EOS # 0.2 10^3/uL (0.0-0.5); HEMATOCRIT 31.3 % (36.0-47.0); HEMOGLOBIN 9.7 g/dl (12.0-15.5); LYMPH # 2.6 10^3/uL (1.5-5.0); LYMPH % 35.6 % (24.0-44.0); MEAN CORPUSCULAR HEMOGLOBIN 32.8 pg (27.0-33.0); MEAN CORPUSCULAR VOLUME 105.7 fl (80.0-96.0); MONO # 0.7 10^3/uL (0.0-0.8); MONO % 9.2 % (2.0-8.0); NEUTROPHILS # 3.7 10^3/uL (1.5-8.5); NEUTROPHILS % 50.8 % (36.0-66.0); PLATELET COUNT, AUTOMATED 270 10^3/uL (150-450); RED BLOOD COUNT 2.96 10^6/uL (4.00-5.40); WHITE BLOOD COUNT 7.3 10^3/uL (4.0-10.0)
[2023-06-03 10:23] LABS: ALBUMIN 2.7 G/DL (3.2-5.2); ALKALINE PHOSPHATASE 98 U/L (46-116); ALT/SGPT < 9 U/L (7.0-40); AST/SGOT 31 U/L (<34); BILIRUBIN,TOTAL 0.5 MG/DL (0.3-1.2); BLOOD UREA NITROGEN 17 MG/DL (9-23); CALCIUM LEVEL 9.7 MG/DL (8.3-10.6); CARBON DIOXIDE LEVEL 25 MMOL/L (20-31); CHLORIDE LEVEL 105 MMOL/L (98-107); CREATININE FOR GFR 0.62 MG/DL (0.55-1.30); GLOMERULAR FILTRATION RATE > 60.0 (>32); GLUCOSE, FASTING 144 MG/DL (74-106); POTASSIUM SERUM 4.5 MMOL/L (3.5-5.1); SODIUM LEVEL 137 MMOL/L (136-145); TOTAL PROTEIN 5.2 G/DL (5.7-8.2)
== END ==
PROVIDERS: ATTEND Nurse Practitioner Family
DX: I50.9 Heart failure, unspecified (principal)

== ENCOUNTER → 2023-06-10 | Outpatient (REF) | payer MEDICARE, MEDICAID ==
[2023-06-10 11:30] LABS: BLOOD UREA NITROGEN 20 MG/DL (9-23); CALCIUM LEVEL 9.2 MG/DL (8.3-10.6); CARBON DIOXIDE LEVEL 26 MMOL/L (20-31); CHLORIDE LEVEL 107 MMOL/L (98-107); CREATININE FOR GFR 0.63 MG/DL (0.55-1.30); GLOMERULAR FILTRATION RATE > 60.0 (>32); GLUCOSE, FASTING 138 MG/DL (74-106); POTASSIUM SERUM 3.9 MMOL/L (3.5-5.1); SODIUM LEVEL 141 MMOL/L (136-145)
== END ==
PROVIDERS: ATTEND Nurse Practitioner Family
DX: E83.52 Hypercalcemia (principal)

== ENCOUNTER → 2023-06-12 | Outpatient (REF) | payer MEDICARE, MEDICAID | PROVIDERS: ATTEND Family Medicine | DX: Z53.8 Procedure and treatment not carried out for other reasons (principal) ==

== ENCOUNTER → 2023-06-13 | Outpatient (REF) | payer MEDICARE, MEDICAID | PROVIDERS: ATTEND Family Medicine | DX: L08.9 Local infection of the skin and subcutaneous tissue, unspecified (principal) ==

== ENCOUNTER → 2023-06-15 | Outpatient (REF) | payer MEDICARE, MEDICAID ==
[2023-06-15 10:26] LABS: BLOOD UREA NITROGEN 15 MG/DL (9-23); CALCIUM LEVEL 9.5 MG/DL (8.3-10.6); CARBON DIOXIDE LEVEL 28 MMOL/L (20-31); CHLORIDE LEVEL 106 MMOL/L (98-107); CREATININE FOR GFR 0.78 MG/DL (0.55-1.30); GLOMERULAR FILTRATION RATE > 60.0 (>32); GLUCOSE, FASTING 181 MG/DL (74-106); POTASSIUM SERUM 4.4 MMOL/L (3.5-5.1); SODIUM LEVEL 138 MMOL/L (136-145)
== END ==
PROVIDERS: ATTEND Family Medicine
DX: E83.52 Hypercalcemia (principal)

== ENCOUNTER → 2023-06-19 | Outpatient (REF) | payer MEDICARE, MEDICAID | PROVIDERS: ATTEND Nurse Practitioner Family | DX: E53.8 Deficiency of other specified B group vitamins (principal) ==

== ENCOUNTER → 2023-06-22 | Outpatient (REF) | payer MEDICARE, MEDICAID ==
[2023-06-22 11:34] LABS: HEMATOCRIT 30.9 % (36.0-47.0); HEMOGLOBIN 9.9 g/dl (12.0-15.5); MEAN CORPUSCULAR HEMOGLOBIN 33.6 pg (27.0-33.0); MEAN CORPUSCULAR VOLUME 104.7 fl (80.0-96.0); PLATELET COUNT, AUTOMATED 253 10^3/uL (150-450); RED BLOOD COUNT 2.95 10^6/uL (4.00-5.40); WHITE BLOOD COUNT 6.1 10^3/uL (4.0-10.0)
[2023-06-22 12:04] LABS: ALBUMIN 2.9 G/DL (3.2-5.2); MAGNESIUM LEVEL 1.7 MG/DL (1.8-2.4)
[2023-06-22 12:05] LABS: BLOOD UREA NITROGEN 18 MG/DL (9-23); CALCIUM LEVEL 10.1 MG/DL (8.3-10.6); CARBON DIOXIDE LEVEL 26 MMOL/L (20-31); CHLORIDE LEVEL 104 MMOL/L (98-107); CREATININE FOR GFR 0.76 MG/DL (0.55-1.30); GLOMERULAR FILTRATION RATE > 60.0 (>32); GLUCOSE, FASTING 110 MG/DL (74-106); POTASSIUM SERUM 4.1 MMOL/L (3.5-5.1); SODIUM LEVEL 136 MMOL/L (136-145)
[2023-06-22 12:06] LABS: THYROXINE (T4) 10.6 UG/DL (4.5-10.9)
== END ==
PROVIDERS: ATTEND Family Medicine
DX: E83.52 Hypercalcemia (principal)

== ENCOUNTER → 2023-06-29 | Outpatient (REF) | payer MEDICARE, MEDICAID ==
[2023-06-29 12:27] LABS: THYROID STIMULATING HORMONE 10.273 uIU/ML (0.55-4.78)
[2023-06-29 12:29] LABS: BLOOD UREA NITROGEN 18 MG/DL (9-23); CALCIUM LEVEL 10.3 MG/DL (8.3-10.6); CARBON DIOXIDE LEVEL 26 MMOL/L (20-31); CHLORIDE LEVEL 102 MMOL/L (98-107); CREATININE FOR GFR 0.76 MG/DL (0.55-1.30); GLOMERULAR FILTRATION RATE > 60.0 (>32); GLUCOSE, FASTING 163 MG/DL (74-106); POTASSIUM SERUM 3.9 MMOL/L (3.5-5.1); SODIUM LEVEL 136 MMOL/L (136-145)
== END ==
PROVIDERS: ATTEND Nurse Practitioner Family
DX: E03.9 Hypothyroidism, unspecified (principal)

== ENCOUNTER → 2023-07-06 | Outpatient (REF) | payer MEDICARE, MEDICAID | PROVIDERS: ATTEND Family Medicine | DX: E83.52 Hypercalcemia (principal) ==

== ENCOUNTER → 2023-07-08 | Outpatient (REF) | payer MEDICARE, MEDICAID ==
[2023-07-08 11:59] LABS: BLOOD UREA NITROGEN 17 MG/DL (9-23); CALCIUM LEVEL 10.6 MG/DL (8.3-10.6); CARBON DIOXIDE LEVEL 25 MMOL/L (20-31); CHLORIDE LEVEL 102 MMOL/L (98-107); CREATININE FOR GFR 0.71 MG/DL (0.55-1.30); GLOMERULAR FILTRATION RATE > 60.0 (>32); GLUCOSE, FASTING 143 MG/DL (74-106); POTASSIUM SERUM 4.3 MMOL/L (3.5-5.1); SODIUM LEVEL 132 MMOL/L (136-145)
== END ==
PROVIDERS: ATTEND Family Medicine
DX: E87.1 Hypo-osmolality and hyponatremia (principal)

== ENCOUNTER → 2023-07-15 | Outpatient (REF) | payer MEDICARE, MEDICAID ==
[2023-07-15 12:46] LABS: BLOOD UREA NITROGEN 17 MG/DL (9-23); CALCIUM LEVEL 9.3 MG/DL (8.3-10.6); CARBON DIOXIDE LEVEL 26 MMOL/L (20-31); CHLORIDE LEVEL 103 MMOL/L (98-107); CREATININE FOR GFR 0.65 MG/DL (0.55-1.30); GLOMERULAR FILTRATION RATE > 60.0 (>32); GLUCOSE, FASTING 110 MG/DL (74-106); POTASSIUM SERUM 3.9 MMOL/L (3.5-5.1); SODIUM LEVEL 136 MMOL/L (136-145)
== END ==
PROVIDERS: ATTEND Physician Assistant
DX: E87.1 Hypo-osmolality and hyponatremia (principal)

== ENCOUNTER → 2023-07-20 | Outpatient (REF) | payer MEDICARE, MEDICAID ==
[~2023-07-20] MED LIST changes: +FOLI1TAB11 PO
[2023-07-20 11:34] LABS: HEMATOCRIT 33.4 % (36.0-47.0); HEMOGLOBIN 10.6 g/dl (12.0-15.5); MEAN CORPUSCULAR HEMOGLOBIN 33.8 pg (27.0-33.0); MEAN CORPUSCULAR HGB CONC 31.7 g/dl (32.0-36.5); MEAN CORPUSCULAR VOLUME 106.4 fl (80.0-96.0); PLATELET COUNT, AUTOMATED 285 10^3/uL (150-450); RED BLOOD COUNT 3.14 10^6/uL (4.00-5.40); WHITE BLOOD COUNT 5.3 10^3/uL (4.0-10.0)
[2023-07-20 11:56] LABS: FERRITIN 56.8 NG/ML (7.3-270.7); TOTAL IRON BINDING CAPACITY 275 UG/DL (250-425)
[2023-07-20 11:57] LABS: ALBUMIN 3.3 G/DL (3.2-5.2); ALKALINE PHOSPHATASE 98 U/L (46-116); ALT/SGPT < 9 U/L (7.0-40); AST/SGOT 18 U/L (<34); BILIRUBIN,TOTAL 0.4 MG/DL (0.3-1.2); BLOOD UREA NITROGEN 19 MG/DL (9-23); CALCIUM LEVEL 9.8 MG/DL (8.3-10.6); CARBON DIOXIDE LEVEL 26 MMOL/L (20-31); CHLORIDE LEVEL 105 MMOL/L (98-107); CREATININE FOR GFR 0.67 MG/DL (0.55-1.30); FOLATE 4.48 NG/ML (>5.4); GLOMERULAR FILTRATION RATE > 60.0 (>32); GLUCOSE, FASTING 142 MG/DL (74-106); IRON (FE) 68 UG/DL (50-170); MAGNESIUM LEVEL 1.7 MG/DL (1.8-2.4); PERCENT SATURATION 24.7 % (13.2-45.0); POTASSIUM SERUM 4.1 MMOL/L (3.5-5.1); SODIUM LEVEL 136 MMOL/L (136-145); TOTAL PROTEIN 5.8 G/DL (5.7-8.2); VITAMIN B12 LEVEL 1115 PG/ML (211-911)
== END ==
LOC: EEVIPCON
PROVIDERS: ATTEND Nurse Practitioner Family
DX: D64.9 Anemia, unspecified (principal)

== ENCOUNTER → 2023-07-27 | Outpatient (REF) | payer MEDICARE, MEDICAID | PROVIDERS: ATTEND Family Medicine | DX: R30.0 Dysuria (principal) ==

== ENCOUNTER → 2023-07-27 | Outpatient (REF) | payer MEDICARE, MEDICAID ==
[2023-07-27 21:16] LABS: APPEARANCE, URINE HAZY (CLEAR); BACTERIA, URINE AUTO NEGATIVE (NEGATIVE); BILIRUBIN, URINE AUTO NEGATIVE (NEGATIVE); BLOOD, URINE BLOOD 2+ (NEGATIVE); COLOR, URINE YELLOW (YELLOW); GLUCOSE, URINE (UA) AUTO NEGATIVE (NEGATIVE); KETONE, URINE AUTO NEGATIVE (NEGATIVE); LEUKOCYTE ESTERASE, URINE AUTO 1+ (NEGATIVE); MUCUS, URINE SMALL (NEGATIVE); NITRITE, URINE AUTO NEGATIVE (NEGATIVE); PROTEIN, URINE AUTO 1+ mg/dL (NEGATIVE); RBC, URINE AUTO 6 /HPF (0-3); SPECIFIC GRAVITY URINE AUTO 1.012 (1.002-1.035); SQUAMOUS EPITHELIAL CELL UR AU 0 /HPF (0-6); UROBILINOGEN, URINE AUTO 0.2 mg/dL (0.0-2.0); WBC, URINE AUTO 20 /HPF (0-3)
== END ==
PROVIDERS: ATTEND Nurse Practitioner Adult Health
DX: R30.0 Dysuria (principal); E83.52 Hypercalcemia

== ENCOUNTER → 2023-07-27 | Outpatient (REF) | payer MEDICARE, MEDICAID ==
[2023-07-27 11:13] LABS: BLOOD UREA NITROGEN 25 MG/DL (9-23); CALCIUM LEVEL 10.7 MG/DL (8.3-10.6); CARBON DIOXIDE LEVEL 28 MMOL/L (20-31); CHLORIDE LEVEL 98 MMOL/L (98-107); CREATININE FOR GFR 0.77 MG/DL (0.55-1.30); GLOMERULAR FILTRATION RATE > 60.0 (>32); GLUCOSE, FASTING 155 MG/DL (74-106); POTASSIUM SERUM 4.2 MMOL/L (3.5-5.1); SODIUM LEVEL 131 MMOL/L (136-145)
== END ==
PROVIDERS: ATTEND Family Medicine
DX: E83.52 Hypercalcemia (principal)

== ENCOUNTER → 2023-08-03 | Outpatient (REF) | payer MEDICARE, MEDICAID ==
[2023-08-03 08:05] LABS: BASO # 0.1 10^3/uL (0.0-0.2); BASO % 1.2 % (0.0-1.0); EOS # 0.1 10^3/uL (0.0-0.5); EOS % 3.2 % (0.0-3.0); HEMATOCRIT 34.2 % (36.0-47.0); LYMPH # 1.9 10^3/uL (1.5-5.0); LYMPH % 43.3 % (24.0-44.0); MEAN CORPUSCULAR HEMOGLOBIN 32.9 pg (27.0-33.0); MEAN CORPUSCULAR HGB CONC 32.2 g/dl (32.0-36.5); MEAN CORPUSCULAR VOLUME 102.4 fl (80.0-96.0); MONO # 0.5 10^3/uL (0.0-0.8); MONO % 12.3 % (2.0-8.0); NEUTROPHILS # 1.7 10^3/uL (1.5-8.5); NEUTROPHILS % 39.5 % (36.0-66.0); PLATELET COUNT, AUTOMATED 224 10^3/uL (150-450); RED BLOOD COUNT 3.34 10^6/uL (4.00-5.40); WHITE BLOOD COUNT 4.3 10^3/uL (4.0-10.0)
[2023-08-03 08:39] LABS: ALBUMIN 3.2 G/DL (3.2-5.2); ALKALINE PHOSPHATASE 86 U/L (46-116); ALT/SGPT < 9 U/L (7.0-40); AST/SGOT 21 U/L (<34); BILIRUBIN,TOTAL 0.4 MG/DL (0.3-1.2); BLOOD UREA NITROGEN 17 MG/DL (9-23); CALCIUM LEVEL 10.7 MG/DL (8.3-10.6); CARBON DIOXIDE LEVEL 27 MMOL/L (20-31); CHLORIDE LEVEL 102 MMOL/L (98-107); CREATININE FOR GFR 0.68 MG/DL (0.55-1.30); GLOMERULAR FILTRATION RATE > 60.0 (>32); GLUCOSE, FASTING 100 MG/DL (74-106); POTASSIUM SERUM 4.3 MMOL/L (3.5-5.1); SODIUM LEVEL 135 MMOL/L (136-145); TOTAL PROTEIN 5.6 G/DL (5.7-8.2)
== END ==
PROVIDERS: ATTEND Family Medicine
DX: I50.9 Heart failure, unspecified (principal)

== ENCOUNTER → 2023-08-05 | Outpatient (REF) | payer MEDICARE, MEDICAID | PROVIDERS: ATTEND Family Medicine | DX: D64.9 Anemia, unspecified (principal); Z79.899 Other long term (current) drug therapy ==

== ENCOUNTER → 2023-08-06 | Outpatient (REF) | payer MEDICARE, MEDICAID ==
[2023-08-06 16:06] LABS: BLOOD UREA NITROGEN 18 MG/DL (9-23); CALCIUM LEVEL 10.3 MG/DL (8.3-10.6); CARBON DIOXIDE LEVEL 26 MMOL/L (20-31); CHLORIDE LEVEL 98 MMOL/L (98-107); CREATININE FOR GFR 0.73 MG/DL (0.55-1.30); GLOMERULAR FILTRATION RATE > 60.0 (>32); GLUCOSE, FASTING 169 MG/DL (74-106); POTASSIUM SERUM 4.2 MMOL/L (3.5-5.1); SODIUM LEVEL 131 MMOL/L (136-145)
== END ==
PROVIDERS: ATTEND Family Medicine
DX: E87.6 Hypokalemia (principal)

== ENCOUNTER → 2023-08-10 | Outpatient (REF) | payer MEDICARE, MEDICAID | PROVIDERS: ATTEND Family Medicine | DX: R10.9 Unspecified abdominal pain (principal) ==

== ENCOUNTER → 2023-08-10 | Outpatient (REF) | payer MEDICARE, MEDICAID ==
[2023-08-10 11:13] LABS: BLOOD UREA NITROGEN 19 MG/DL (9-23); CALCIUM LEVEL 10.5 MG/DL (8.3-10.6); CARBON DIOXIDE LEVEL 28 MMOL/L (20-31); CHLORIDE LEVEL 98 MMOL/L (98-107); CREATININE FOR GFR 0.71 MG/DL (0.55-1.30); GLOMERULAR FILTRATION RATE > 60.0 (>32); GLUCOSE, FASTING 164 MG/DL (74-106); POTASSIUM SERUM 3.6 MMOL/L (3.5-5.1); SODIUM LEVEL 132 MMOL/L (136-145)
[2023-08-10 12:45] LABS: ALBUMIN 3.4 G/DL (3.2-5.2); ALKALINE PHOSPHATASE 323 U/L (46-116); ALT/SGPT 22 U/L (7.0-40); AST/SGOT 86 U/L (<34); BILIRUBIN,TOTAL 1.6 MG/DL (0.3-1.2); TOTAL PROTEIN 6.2 G/DL (5.7-8.2)
[2023-08-10 12:48] LABS: THYROID STIMULATING HORMONE 6.874 uIU/ML (0.55-4.78)
[2023-08-10 14:04] LABS: HEMOGLOBIN 10.7 g/dl (12.0-15.5); MEAN CORPUSCULAR HEMOGLOBIN 32.2 pg (27.0-33.0); MEAN CORPUSCULAR HGB CONC 32.4 g/dl (32.0-36.5); MEAN CORPUSCULAR VOLUME 99.4 fl (80.0-96.0); PLATELET COUNT, AUTOMATED 232 10^3/uL (150-450); RED BLOOD COUNT 3.32 10^6/uL (4.00-5.40); WHITE BLOOD COUNT 6.2 10^3/uL (4.0-10.0)
== END ==
PROVIDERS: ATTEND Physician Assistant
DX: E83.52 Hypercalcemia (principal); Z79.899 Other long term (current) drug therapy

== ENCOUNTER → 2023-08-11 | Outpatient (REF) | payer MEDICARE, MEDICAID | PROVIDERS: ATTEND Physician Assistant | DX: R41.82 Altered mental status, unspecified (principal); Z53.8 Procedure and treatment not carried out for other reasons ==

== ENCOUNTER → 2023-08-12 | Outpatient (REF) | payer MEDICARE, MEDICAID ==
[2023-08-12 11:53] LABS: TOTAL 25(OH) VITAMIN D 43.3 NG/ML (20.0-100.0)
[2023-08-12 12:00] LABS: ALBUMIN 2.9 G/DL (3.2-5.2); ALKALINE PHOSPHATASE 307 U/L (46-116); ALT/SGPT 18 U/L (7.0-40); AST/SGOT 28 U/L (<34); BILIRUBIN,TOTAL 0.8 MG/DL (0.3-1.2); BLOOD UREA NITROGEN 24 MG/DL (9-23); CALCIUM LEVEL 10.5 MG/DL (8.3-10.6); CARBON DIOXIDE LEVEL 30 MMOL/L (20-31); CHLORIDE LEVEL 98 MMOL/L (98-107); CREATININE FOR GFR 0.72 MG/DL (0.55-1.30); GLOMERULAR FILTRATION RATE > 60.0 (>32); GLUCOSE, FASTING 129 MG/DL (74-106); SODIUM LEVEL 133 MMOL/L (136-145); TOTAL PROTEIN 5.7 G/DL (5.7-8.2)
== END ==
PROVIDERS: ATTEND Family Medicine
DX: E55.9 Vitamin D deficiency, unspecified (principal)

== ENCOUNTER → 2023-08-14 | Outpatient (REF) | payer MEDICARE, MEDICAID | PROVIDERS: ATTEND Nurse Practitioner Adult Health | DX: R94.5 Abnormal results of liver function studies (principal); Z79.899 Other long term (current) drug therapy ==

== ENCOUNTER → 2023-08-17 | Outpatient (REF) | payer MEDICARE, MEDICAID ==
[~2023-08-17] MED LIST changes: +ACET650T15 PO; +CARB25TA9 PO; +LEVO125T41 PO; +LIDO1CRE2 TOP; +MACR100C42 PO; +MOUKOT60 MT; +ONDA-83 PO; +SERT25TA21 PO; +TORS20TA2 PO; +TRAN1DIS4 TOP
[2023-08-17 11:38] LABS: HEMATOCRIT 33.5 % (36.0-47.0); HEMOGLOBIN 10.9 g/dl (12.0-15.5); MEAN CORPUSCULAR HEMOGLOBIN 32.4 pg (27.0-33.0); MEAN CORPUSCULAR HGB CONC 32.5 g/dl (32.0-36.5); MEAN CORPUSCULAR VOLUME 99.7 fl (80.0-96.0); PLATELET COUNT, AUTOMATED 325 10^3/uL (150-450); RED BLOOD COUNT 3.36 10^6/uL (4.00-5.40); WHITE BLOOD COUNT 4.5 10^3/uL (4.0-10.0)
[2023-08-17 12:13] LABS: THYROXINE (T4) 9.4 UG/DL (4.5-10.9)
[2023-08-17 12:15] LABS: ALBUMIN 3.1 G/DL (3.2-5.2); BLOOD UREA NITROGEN 29 MG/DL (9-23); CALCIUM LEVEL 10.7 MG/DL (8.3-10.6); CARBON DIOXIDE LEVEL 28 MMOL/L (20-31); CHLORIDE LEVEL 101 MMOL/L (98-107); CREATININE FOR GFR 0.72 MG/DL (0.55-1.30); GLOMERULAR FILTRATION RATE > 60.0 (>32); GLUCOSE, FASTING 125 MG/DL (74-106); MAGNESIUM LEVEL 1.8 MG/DL (1.8-2.4); POTASSIUM SERUM 4.5 MMOL/L (3.5-5.1); SODIUM LEVEL 136 MMOL/L (136-145)
== END ==
PROVIDERS: ATTEND Family Medicine
DX: E11.9 Type 2 diabetes mellitus without complications (principal)

== ENCOUNTER 2023-08-18 13:08 | Inpatient (IN) | payer MEDICARE, MEDICAID ==
[~2023-08-18] VITALS: Ht 160 cm; Wt 67.6 kg
[~2023-08-18 13:08] MED LIST changes: -ACET650T15 PO; -CARB25TA9 PO; -LEVO125T41 PO; -LIDO1CRE2 TOP; -MACR100C42 PO; -MOUKOT60 MT; -ONDA-83 PO; -SERT25TA21 PO; -TORS20TA2 PO; -TRAN1DIS4 TOP
[2023-08-18 14:07] LABS: BASO # 0.1 10^3/uL (0.0-0.2); BASO % 1.8 % (0.0-1.0); EOS # 0.1 10^3/uL (0.0-0.5); EOS % 0.8 % (0.0-3.0); HEMATOCRIT 38.8 % (36.0-47.0); HEMOGLOBIN 12.6 g/dl (12.0-15.5); LYMPH # 2.4 10^3/uL (1.5-5.0); LYMPH % 33.4 % (24.0-44.0); MEAN CORPUSCULAR HEMOGLOBIN 32.1 pg (27.0-33.0); MEAN CORPUSCULAR HGB CONC 32.5 g/dl (32.0-36.5); MEAN CORPUSCULAR VOLUME 98.7 fl (80.0-96.0); MONO # 0.7 10^3/uL (0.0-0.8); MONO % 9.8 % (2.0-8.0); NEUTROPHILS # 3.9 10^3/uL (1.5-8.5); NEUTROPHILS % 53.5 % (36.0-66.0); PLATELET COUNT, AUTOMATED 367 10^3/uL (150-450); RED BLOOD COUNT 3.93 10^6/uL (4.00-5.40); WHITE BLOOD COUNT 7.2 10^3/uL (4.0-10.0)
[2023-08-18 14:41] LABS: ALBUMIN 3.8 G/DL (3.2-5.2); ALKALINE PHOSPHATASE 202 U/L (46-116); ALT/SGPT < 9 U/L (7.0-40); AST/SGOT 33 U/L (<34); BILIRUBIN,DIRECT 0.3 MG/DL (<0.4); BILIRUBIN,TOTAL 0.7 MG/DL (0.3-1.2); BLOOD UREA NITROGEN 26 MG/DL (9-23); CALCIUM LEVEL 10.9 MG/DL (8.3-10.6); CARBON DIOXIDE LEVEL 28 MMOL/L (20-31); CHLORIDE LEVEL 99 MMOL/L (98-107); CREATININE FOR GFR 0.67 MG/DL (0.55-1.30); GLOMERULAR FILTRATION RATE > 60.0 (>32); GLUCOSE, FASTING 127 MG/DL (74-106); LIPASE 34 U/L (12-53); POTASSIUM SERUM 5.5 MMOL/L (3.5-5.1); SODIUM LEVEL 131 MMOL/L (136-145); TOTAL PROTEIN 6.8 G/DL (5.7-8.2)
[2023-08-18] MEDS: LORazepam 2 MG/ML 1ML VIAL IV ONE (15:15)
[2023-08-18] MEDS: NS 500 ML IV ONE (18:05)
[2023-08-18] MEDS ORDERED: ISOVUE-370 76% 100ML VIAL As Ordered ONE (18:11)
[2023-08-18 18:52] VITALS: O2SAT 96
[2023-08-18 19:14] LABS: APPEARANCE, URINE CLOUDY (CLEAR); BACTERIA, URINE AUTO 3+ (NEGATIVE); BILIRUBIN, URINE AUTO NEGATIVE (NEGATIVE); BLOOD, URINE BLOOD NEGATIVE (NEGATIVE); COLOR, URINE AMBER (YELLOW); GLUCOSE, URINE (UA) AUTO NEGATIVE (NEGATIVE); KETONE, URINE AUTO TRACE mg/dL (NEGATIVE); LEUKOCYTE ESTERASE, URINE AUTO 3+ (NEGATIVE); MUCUS, URINE SMALL (NEGATIVE); NITRITE, URINE AUTO NEGATIVE (NEGATIVE); PROTEIN, URINE AUTO 1+ mg/dL (NEGATIVE); RBC, URINE AUTO 6 /HPF (0-3); SPECIFIC GRAVITY URINE AUTO 1.018 (1.002-1.035); SQUAMOUS EPITHELIAL CELL UR AU 0 /HPF (0-6); UROBILINOGEN, URINE AUTO 0.2 mg/dL (0.0-2.0); WBC, URINE AUTO 149 /HPF (0-3)
[2023-08-18] MEDS: LevoFLOXacin IV 750 MG in IV 1 EA IV ONE (20:49)
[2023-08-18] MEDS ORDERED: MAALOX 30 ML SUSP *UDC PO PRN (21:25)
[2023-08-18] MEDS ORDERED: MOM 30ML SUSPENSION UDC PO PRN (21:25)
[2023-08-18] MEDS ORDERED: cefTRIAXone SOD 1 GM in D5W MINI-BAG PLUS 50 ML IV SCH (21:55)
[2023-08-18] MEDS ORDERED: MOUKOT60 MT (22:13)
[2023-08-18] MEDS ORDERED: TRAN1DIS4 TOP (22:13)
[2023-08-18] MEDS ORDERED: LEVO125T41 PO (22:13)
[2023-08-18] MEDS ORDERED: LIDO1CRE2 TOP (22:13)
[2023-08-18] MEDS ORDERED: ONDA-83 PO (22:13)
[2023-08-18] MEDS ORDERED: SERT25TA21 PO (22:13)
[2023-08-18] MEDS ORDERED: FOLI1TAB11 PO (22:13)
[2023-08-18] MEDS ORDERED: TORS20TA2 PO (22:13)
[2023-08-18] MEDS ORDERED: ACET650T15 PO (22:13)
[2023-08-18] MEDS ORDERED: LACT20EL PO (22:13)
[2023-08-18] MEDS ORDERED: MACR100C42 PO (22:13)
[2023-08-18] MEDS ORDERED: CARB25TA9 PO (22:13)
[2023-08-18] MEDS ORDERED: HOME MED LIST COMPLETE! XX SCH (22:15)
[2023-08-18 23:08] VITALS: BP 113/68; TEMP 97.9
[2023-08-18 23:24] VITALS: O2SAT 99
[2023-08-18] MEDS: AZITHROMYCIN INJ 500 MG, VIAL MATE ADAPTER 1 EACH in NS 250 ML IV SCH (23:27)
[2023-08-19] MEDS: MEROPENEM INJ 1 GM in IV 1 EA IV SCH (00:42)
[2023-08-19 05:42] VITALS: BP 113/65; TEMP 98.1; O2SAT 18
[2023-08-19] MEDS: DOCUSATE SODIUM 100MG CAPSULE PO SCH (09:30)
[2023-08-19] MEDS: HEPARIN SOD (PORCINE) 5000UNITS/ML 1ML VIAL/SYRINGE SC SCH (09:30)
[2023-08-19] MEDS: ONDANSETRON 4MG 2ML VIAL IV PRN (14:14)
[2023-08-19 14:34] VITALS: BP 116/75; TEMP 98.2; O2SAT 93
[2023-08-19 20:07] VITALS: BP 136/50; TEMP 97.9; O2SAT 99
[2023-08-19] MEDS: ACETAMINOPHEN TAB 650MG DOSE (2X325MG) PO PRN (23:07)
[2023-08-20 06:00] VITALS: BP 147/78; TEMP 98.1; O2SAT 92
[2023-08-20] MEDS: LEVOTHYROXINE 125MCG TABLET (0.125MG) PO SCH (06:00)
[2023-08-20] MEDS ORDERED: BISACODYL 10MG SUPP PR PRN (07:20)
[2023-08-20 08:00] LABS: BASO # 0.1 10^3/uL (0.0-0.2); BASO % 1.4 % (0.0-1.0); EOS # 0.1 10^3/uL (0.0-0.5); EOS % 1.3 % (0.0-3.0); HEMATOCRIT 31.8 % (36.0-47.0); LYMPH # 2.4 10^3/uL (1.5-5.0); LYMPH % 33.8 % (24.0-44.0); MEAN CORPUSCULAR HEMOGLOBIN 32.1 pg (27.0-33.0); MEAN CORPUSCULAR HGB CONC 31.8 g/dl (32.0-36.5); MONO # 0.7 10^3/uL (0.0-0.8); MONO % 9.5 % (2.0-8.0); NEUTROPHILS # 3.8 10^3/uL (1.5-8.5); NEUTROPHILS % 53.4 % (36.0-66.0); PLATELET COUNT, AUTOMATED 314 10^3/uL (150-450); RED BLOOD COUNT 3.15 10^6/uL (4.00-5.40); WHITE BLOOD COUNT 7.1 10^3/uL (4.0-10.0)
[2023-08-20 08:01] LABS: HEMOGLOBIN 10.1 g/dl (12.0-15.5)
[2023-08-20 08:27] LABS: BLOOD UREA NITROGEN 19 MG/DL (9-23); CALCIUM LEVEL 10.9 MG/DL (8.3-10.6); CARBON DIOXIDE LEVEL 25 MMOL/L (20-31); CHLORIDE LEVEL 106 MMOL/L (98-107); CREATININE FOR GFR 0.62 MG/DL (0.55-1.30); GLOMERULAR FILTRATION RATE > 60.0 (>32); GLUCOSE, FASTING 84 MG/DL (74-106); POTASSIUM SERUM 3.8 MMOL/L (3.5-5.1); SODIUM LEVEL 139 MMOL/L (136-145)
[2023-08-20] MEDS: LACTULOSE 20GM/30ML SYRUP UDC PO SCH (09:00)
[2023-08-20] MEDS: OMEPRAZOLE 20MG CAP PO SCH (09:17)
[2023-08-20] MEDS: FOLIC ACID 1MG TAB PO SCH (09:17)
[2023-08-20] MEDS: SINEMET 25-100 MG TAB PO SCH (09:17)
[2023-08-20] MEDS: PREGABALIN 25 MG CAP (LYRICA) PO SCH (09:17)
[2023-08-20] MEDS: SCOPOLAMINE 1MG TRANSDERMAL PATCH TOP SCH (09:17)
[2023-08-20] MEDS: ALPRAZolam 0.5 MG TAB PO SCH (09:17)
[2023-08-20] MEDS ORDERED: PILL CUTTER 1 EACH XX PRN (10:55)
[2023-08-20] MEDS: CINACALCET 30 MG TAB (SENSIPAR) PO SCH (12:57)
[2023-08-20 14:00] VITALS: BP 121/58; TEMP 97.9; O2SAT 92
[2023-08-20 21:07] VITALS: BP 106/52; TEMP 97.5; O2SAT 96
[2023-08-20] MEDS: LATANOPROST 0.005% OPHTH SOLN 2.5 ML OU SCH (21:23)
[2023-08-20] MEDS: AZITHROMYCIN 250MG TABLET PO SCH (21:24)
[2023-08-21] MEDS: CLOTRIMAZOLE 10 MG TROCHE PO SCH (05:42)
[2023-08-21 06:29] VITALS: BP 123/58; TEMP 98.9; O2SAT 96
[2023-08-21 08:31] LABS: BLOOD UREA NITROGEN 16 MG/DL (9-23); CALCIUM LEVEL 10.7 MG/DL (8.3-10.6); CARBON DIOXIDE LEVEL 26 MMOL/L (20-31); CHLORIDE LEVEL 106 MMOL/L (98-107); CREATININE FOR GFR 0.57 MG/DL (0.55-1.30); GLOMERULAR FILTRATION RATE > 60.0 (>32); GLUCOSE, FASTING 98 MG/DL (74-106); MAGNESIUM LEVEL 1.7 MG/DL (1.8-2.4); POTASSIUM SERUM 3.8 MMOL/L (3.5-5.1); SODIUM LEVEL 137 MMOL/L (136-145)
[2023-08-21] MEDS: CHLORASEPTIC SPRAY MT PRN (09:09)
[2023-08-21 14:00] VITALS: BP 116/57; TEMP 98.2; O2SAT 95
[2023-08-21 15:08] LABS: MYCOPLASMA PNEUMONIAE IgG <100 U/mL (0-99); MYCOPLASMA PNEUMONIAE IgM <770 U/mL (0-769)
[2023-08-21] MEDS: MAG SULF 1GM/100ML (MAG RUN) 1 GM in IV 1 EA IV SCH (19:47)
[2023-08-21 21:02] VITALS: BP 120/73; TEMP 98.1; O2SAT 97
[2023-08-22 06:13] VITALS: BP 117/58; TEMP 98.1; O2SAT 96
[2023-08-22 07:46] LABS: BLOOD UREA NITROGEN 20 MG/DL (9-23); CALCIUM LEVEL 10.7 MG/DL (8.3-10.6); CARBON DIOXIDE LEVEL 26 MMOL/L (20-31); CHLORIDE LEVEL 103 MMOL/L (98-107); GLOMERULAR FILTRATION RATE > 60.0 (>32); GLUCOSE, FASTING 97 MG/DL (74-106); MAGNESIUM LEVEL 2.5 MG/DL (1.8-2.4); POTASSIUM SERUM 3.7 MMOL/L (3.5-5.1); SODIUM LEVEL 134 MMOL/L (136-145)
[2023-08-22 14:47] VITALS: BP 116/57; TEMP 98.2; O2SAT 93
[2023-08-22 22:00] VITALS: BP 116/57; TEMP 98.2; O2SAT 97
[2023-08-23 05:43] VITALS: BP 131/87; TEMP 98.1; O2SAT 99
[2023-08-23 09:26] LABS: BASO # 0.1 10^3/uL (0.0-0.2); BASO % 1.7 % (0.0-1.0); EOS # 0.1 10^3/uL (0.0-0.5); EOS % 2.4 % (0.0-3.0); HEMATOCRIT 32.6 % (36.0-47.0); HEMOGLOBIN 10.5 g/dl (12.0-15.5); LYMPH # 1.8 10^3/uL (1.5-5.0); LYMPH % 32.8 % (24.0-44.0); MEAN CORPUSCULAR HEMOGLOBIN 31.7 pg (27.0-33.0); MEAN CORPUSCULAR HGB CONC 32.2 g/dl (32.0-36.5); MEAN CORPUSCULAR VOLUME 98.5 fl (80.0-96.0); MONO # 0.6 10^3/uL (0.0-0.8); MONO % 11.8 % (2.0-8.0); NEUTROPHILS # 2.8 10^3/uL (1.5-8.5); NEUTROPHILS % 50.7 % (36.0-66.0); PLATELET COUNT, AUTOMATED 309 10^3/uL (150-450); RED BLOOD COUNT 3.31 10^6/uL (4.00-5.40); WHITE BLOOD COUNT 5.4 10^3/uL (4.0-10.0)
[2023-08-23 09:54] LABS: BLOOD UREA NITROGEN 20 MG/DL (9-23); CALCIUM LEVEL 10.8 MG/DL (8.3-10.6); CARBON DIOXIDE LEVEL 26 MMOL/L (20-31); CHLORIDE LEVEL 105 MMOL/L (98-107); CREATININE FOR GFR 0.57 MG/DL (0.55-1.30); GLOMERULAR FILTRATION RATE > 60.0 (>32); GLUCOSE, FASTING 136 MG/DL (74-106); MAGNESIUM LEVEL 1.9 MG/DL (1.8-2.4); POTASSIUM SERUM 4.1 MMOL/L (3.5-5.1); SODIUM LEVEL 136 MMOL/L (136-145)
[2023-08-23 14:00] VITALS: BP 104/58; TEMP 97.9; O2SAT 94
[2023-08-23 20:24] VITALS: BP 109/58; TEMP 98.1; O2SAT 97
[2023-08-24 05:05] VITALS: BP 100/64; TEMP 97.9; O2SAT 97
[2023-08-24 07:33] LABS: BLOOD UREA NITROGEN 19 MG/DL (9-23); CALCIUM LEVEL 10.5 MG/DL (8.3-10.6); CARBON DIOXIDE LEVEL 29 MMOL/L (20-31); CHLORIDE LEVEL 106 MMOL/L (98-107); CREATININE FOR GFR 0.51 MG/DL (0.55-1.30); GLOMERULAR FILTRATION RATE > 60.0 (>32); GLUCOSE, FASTING 93 MG/DL (74-106); MAGNESIUM LEVEL 1.9 MG/DL (1.8-2.4); SODIUM LEVEL 137 MMOL/L (136-145)
== END 2023-08-24 14:10 | DRG 689 ==
LOC: M ED 13:08 → EDBD 13:08 → M ED INP 13:09 → ENRESERV 21:51 → M MS5PR 22:55 → OBSVTOIN 08-20 13:17
PROVIDERS: ADMIT Internal Medicine; ATTEND Student in an Organized Health Care Education/Training Program
DX: N39.0 Urinary tract infection, site not specified (principal); J18.9 Pneumonia, unspecified organism; K50.90 Crohn's disease, unspecified, without complications; I50.32 Chronic diastolic (congestive) heart failure; G93.40 Encephalopathy, unspecified; B37.0 Candidal stomatitis; J44.0 Chronic obstructive pulmonary disease with (acute) lower respiratory infection; E21.3 Hyperparathyroidism, unspecified; E03.9 Hypothyroidism, unspecified; G62.9 Polyneuropathy, unspecified; F41.9 Anxiety disorder, unspecified; K21.9 Gastro-esophageal reflux disease without esophagitis; N28.1 Cyst of kidney, acquired; I11.0 Hypertensive heart disease with heart failure; E78.5 Hyperlipidemia, unspecified; E87.5 Hyperkalemia; B96.20 Unspecified Escherichia coli [E. coli] as the cause of diseases classified elsewhere; E83.42 Hypomagnesemia; Z90.49 Acquired absence of other specified parts of digestive tract; Z88.0 Allergy status to penicillin; Z79.899 Other long term (current) drug therapy; Z79.890 Hormone replacement therapy

== ENCOUNTER → 2023-08-18 | Outpatient (CLI) | payer MEDICARE, MEDICAID | LOC: M RAD 08:31 | PROVIDERS: ATTEND Nurse Practitioner Adult Health | DX: K76.0 Fatty (change of) liver, not elsewhere classified (principal); Z90.49 Acquired absence of other specified parts of digestive tract ==

== ENCOUNTER → 2023-08-24 | Outpatient (REF) | payer MEDICARE, MEDICAID ==
[~2023-08-24] MED LIST changes: +ACET650T15 PO; +CARB25TA9 PO; +LEVO125T41 PO; +LIDO1CRE2 TOP; +MACR100C42 PO; +MOUKOT60 MT; +ONDA-83 PO; +SERT25TA21 PO; +TORS20TA2 PO; +TRAN1DIS4 TOP
== END ==
PROVIDERS: ATTEND Family Medicine
DX: E83.52 Hypercalcemia (principal); Z53.8 Procedure and treatment not carried out for other reasons

== ENCOUNTER → 2023-08-26 | Outpatient (REF) | payer MEDICARE, MEDICAID ==
[2023-08-26 12:40] LABS: BLOOD UREA NITROGEN 23 MG/DL (9-23); CALCIUM LEVEL 10.9 MG/DL (8.3-10.6); CARBON DIOXIDE LEVEL 28 MMOL/L (20-31); CHLORIDE LEVEL 103 MMOL/L (98-107); CREATININE FOR GFR 0.66 MG/DL (0.55-1.30); GLOMERULAR FILTRATION RATE > 60.0 (>32); GLUCOSE, FASTING 117 MG/DL (74-106); POTASSIUM SERUM 4.4 MMOL/L (3.5-5.1); SODIUM LEVEL 136 MMOL/L (136-145)
== END ==
PROVIDERS: ATTEND Family Medicine
DX: E83.52 Hypercalcemia (principal)

== ENCOUNTER → 2023-08-31 | Outpatient (REF) | payer MEDICARE, MEDICAID | PROVIDERS: ATTEND Family Medicine | DX: I50.9 Heart failure, unspecified (principal) ==

== ENCOUNTER → 2023-09-07 | Outpatient (REF) | payer MEDICARE, MEDICAID ==
[2023-09-07 09:03] LABS: BLOOD UREA NITROGEN 21 MG/DL (9-23); CALCIUM LEVEL 9.5 MG/DL (8.3-10.6); CARBON DIOXIDE LEVEL 29 MMOL/L (20-31); CHLORIDE LEVEL 100 MMOL/L (98-107); CREATININE FOR GFR 0.65 MG/DL (0.55-1.30); GLOMERULAR FILTRATION RATE > 60.0 (>32); GLUCOSE, FASTING 80 MG/DL (74-106); POTASSIUM SERUM 3.9 MMOL/L (3.5-5.1); SODIUM LEVEL 136 MMOL/L (136-145)
[2023-09-07 09:06] LABS: THYROXINE (T4) 8.5 UG/DL (4.5-10.9)
[2023-09-10 11:27] LABS: FREE T3 1.9 PG/ML (2.3-4.2)
== END ==
PROVIDERS: ATTEND Nurse Practitioner Adult Health
DX: E83.52 Hypercalcemia (principal)

== ENCOUNTER → 2023-09-10 | Outpatient (REF) | payer MEDICARE, MEDICAID | PROVIDERS: ATTEND Family Medicine | DX: R11.2 Nausea with vomiting, unspecified (principal) ==

== ENCOUNTER → 2023-09-10 | Outpatient (REF) | payer MEDICARE, MEDICAID ==
[2023-09-10 10:45] LABS: HEMATOCRIT 34.7 % (36.0-47.0); HEMOGLOBIN 11.4 g/dl (12.0-15.5); MEAN CORPUSCULAR HEMOGLOBIN 31.2 pg (27.0-33.0); MEAN CORPUSCULAR HGB CONC 32.9 g/dl (32.0-36.5); MEAN CORPUSCULAR VOLUME 95.1 fl (80.0-96.0); PLATELET COUNT, AUTOMATED 325 10^3/uL (150-450); RED BLOOD COUNT 3.65 10^6/uL (4.00-5.40); WHITE BLOOD COUNT 8.2 10^3/uL (4.0-10.0)
[2023-09-10 11:09] LABS: ALKALINE PHOSPHATASE 111 U/L (46-116); ALT/SGPT < 9 U/L (7.0-40); AST/SGOT 20 U/L (<34); BILIRUBIN,TOTAL 0.7 MG/DL (0.3-1.2); BLOOD UREA NITROGEN 20 MG/DL (9-23); CALCIUM LEVEL 9.8 MG/DL (8.3-10.6); CARBON DIOXIDE LEVEL 26 MMOL/L (20-31); CHLORIDE LEVEL 101 MMOL/L (98-107); CREATININE FOR GFR 0.57 MG/DL (0.55-1.30); GLOMERULAR FILTRATION RATE > 60.0 (>32); GLUCOSE, FASTING 75 MG/DL (74-106); MAGNESIUM LEVEL 1.5 MG/DL (1.8-2.4); POTASSIUM SERUM 4.1 MMOL/L (3.5-5.1); SODIUM LEVEL 135 MMOL/L (136-145); TOTAL PROTEIN 5.5 G/DL (5.7-8.2)
== END ==
PROVIDERS: ATTEND Nurse Practitioner Adult Health
DX: R11.0 Nausea (principal)

== ENCOUNTER → 2023-09-14 | Outpatient (REF) | payer MEDICARE, MEDICAID | PROVIDERS: ATTEND Family Medicine | DX: Z53.8 Procedure and treatment not carried out for other reasons (principal) ==

== ENCOUNTER → 2023-09-14 | Outpatient (REF) | payer MEDICARE, MEDICAID | PROVIDERS: ATTEND Family Medicine | DX: Z53.8 Procedure and treatment not carried out for other reasons (principal) ==

== ENCOUNTER → 2023-09-14 | Outpatient (REF) | payer MEDICARE, MEDICAID | PROVIDERS: ATTEND Nurse Practitioner Adult Health | DX: Z53.8 Procedure and treatment not carried out for other reasons (principal) ==

== ENCOUNTER → 2023-09-14 | Outpatient (REF) | payer MEDICARE, MEDICAID | PROVIDERS: ATTEND Nurse Practitioner Adult Health | DX: E83.52 Hypercalcemia (principal); Z53.8 Procedure and treatment not carried out for other reasons ==